=== PATIENT | male | born 1935 | race Asian ===

== ENCOUNTER 2019-03-02 15:56 | Inpatient (IN) | payer MEDICARE, OTHER ==
[2019-03-02] VITALS (21 sets, daily range): BP systolic 106–122; BP diastolic 68–81; PULSE 93–105; RESP 14–31; Ht 170.2 cm; Wt 78.2 kg
[~2019-03-02] VITALS: Ht 170.2 cm; Wt 78.2 kg
[2019-03-02] MEDS ORDERED: HEPARIN 1000 UNITS/ML 10 ML INJ IV STA (16:01)
[2019-03-02] MEDS ORDERED: NITROGLYCERIN 2% 1 GM OINT PKT TD STA (16:01)
[2019-03-02] MEDS ORDERED: morphine 4 MG/ML VIAL IV STA (16:01)
[2019-03-02] MEDS ORDERED: ONDANSETRON 4 MG INJ IV STA (16:01)
--- NOTE | 2019-03-02 16:05 | ERD ---
ER Documentation Chief Complaint Chief Complaint STEMI, chest pain HPI This 83-year-old male who was having chest pain yesterday that was waxing and waning. His chest pain became more constant today so went to his doctor's office and he had an EKG there and it showed acute myocardial infarction. He was transferred here by ambulance. He received 1 aspirin and 2 nitro sprays by EMS. His pain is currently a 4 out of 10. He has no prior cardiac history he says his chest pain is in the center of his chest is described as a pressure with some mild shortness of breath. No syncope or back pain or abdominal pain. ROS All systems reviewed and are negative except as per history of present illness. FmHx Family History: No coronary disease Physical Exam Physical Exam Const: Well-developed, well-nourished Head: Atraumatic, normocephalic Eyes: Normal Conjunctiva, PERRLA, EOMI, normal sclera, no nystagmus ENT: Normal External Ears, Nose and Mouth, moist mucus membranes. Neck: Full range of motion. No meningismus, no lymphadenopathy. Resp: Clear to auscultation bilaterally, no wheezing, rhonchi, rales Cardio: Regular rate and rhythm, no murmurs, S1 S2 present Abd: Soft, non tender x 4, non distended. Normal bowel sounds, no guarding or rebound, no pulsitile abdominal masses or bruits Skin: No petechiae or rashes, no ecchymosis , no maculopapular rash Back: No midline or flank tenderness Ext: No cyanosis, or edema, FROM x 4, normal inspection, neurovascularly intact x 4 Neur: Awake and alert, STR 5/5 x 4, sensation intact x 4, no focal findings, cerebellum intact Psych: Normal Mood and Affect Procedures/MDM EKG: Rate/Rhythm: ST elevation across the precordial lateral leads with reciprocal change QRS, ST, QT: NORMAL AR, QRS, QT] Impression: Acute STEMI Patient was given Zofran and morphine, heparin 5000 units IV. Spoke with Dr. Javier [facility] of cardiology, code STEMI was called and he will go to the [employer] [facility] soon Critical Care Time: 30 minutes Treatments/Evaluations: Close monitoring and treatment of unstable vital signs, cardiorespiratory, and neurologic status, while maintaining tight balance of fluid, respiratory, and cardiac interventions. This time includes discussing the case with the patient and the patient's family. This time does not include all procedures stated elsewhere in this record. This time also includes reviewing old records, labs and radiological studies. This time includes examining and re- examining the patient. Additionally, this time also includes arranging care with admitting and consulting physicians. Departure Diagnosis: Primary Impression: STEMI (ST elevation myocardial infarction) Involved coronary artery: LAD coronary artery Qualified Codes: I21.02 - ST elevation (STEMI) myocardial infarction involving left anterior descending coronary artery Condition: AICHA Agee DO March 02, 2019 16:05
[2019-03-02] MEDS ORDERED: NITROGLYCERIN (IC) 100 MCG/ML INJ ONE (16:22)
[2019-03-02] MEDS ORDERED: LIDOCAINE 1% (MDV) 20 ML INJ ONE (16:22)
[2019-03-02] MEDS ORDERED: HEPARIN 1000 UNITS/ML 10 ML INJ ONE (16:22)
[2019-03-02] MEDS ORDERED: VERAPAMIL 5 MG INJ ONE ×2 (16:22→16:44)
[2019-03-02] MEDS ORDERED: FENTAnyl 50 MCG/ML VIAL ONE (16:24)
[2019-03-02] MEDS ORDERED: MIDAZOLAM 1 MG/ML 2 ML INJ ONE (16:32)
[2019-03-02] MEDS ORDERED: TRAM50TA PO (16:37)
[2019-03-02] MEDS ORDERED: LEVO50TA7 PO (16:38)
[2019-03-02] MEDS ORDERED: FURO40TA4 PO (16:38)
[2019-03-02] MEDS ORDERED: DICL100G37 TOP (16:39)
[2019-03-02] MEDS ORDERED: CLOPIDOGREL 300 MG TAB ONE (16:42)
[2019-03-02] MEDS ORDERED: NORepinephrine 8MG/250 ML (PMX 250 ML ONE (17:10)
[2019-03-02] MEDS ORDERED: BIVALIRUDIN 250MG /NS 50 ML 50 ML IVPB ONE ×2 (17:28→17:39)
--- NOTE | 2019-03-02 18:16 | OPR ---
Date/Time of Note Date/Time of Note DATE: 03/02/19 TIME: 17:52 Operative Report Procedure Date: March 02, 2019 Preoperative Diagnosis anterior STEMI Postoperative Diagnosis same s/p PCI Operation/Procedure Performed see details Surgeon see signature line Behavioral Technician none Anesthesia Type: moderate sedation Estimated Blood Loss: minimal Transfusion none Specimen none Grafts/Implants none Complications none Procedure Description Procedure Date:03/02/2019 Instructor Of Sociology/surgeon: Palmira Chambers MD. Procedures Performed: 1)Left heart catheterization with selective left and right coronary angiography. 2)Balloon angioplasty and stenting of the prox-mid LAD with a [place] 2.5 x 15 stent. 3)Balloon angioplasty and stenting of the mid LAD into ostial diag with a [place]olute [place] 2.25 x 15 stent. Pre-operative Diagnosis:STEMI Post-operative Diagnosis:same s/p PCI Indications: 83 yo M with no known medical history who initially presented to his PMD with chest pain on and off for 3 days, worse today, and was found to have an anterior STEMI, He was transferred to [facility] for cath. Description of Procedure: After informed consent, the patient was brought to the cardiac catheterization lab. The procedure site was prepped and draped in usual manner. 2 mL lidocaine was injected into the right wrist. Next using the posterior wall technique, the 6/5 south korean sheath was inserted into the right radial artery. Next using the EBU 3.25 guide and JR4, selective angiography of the left and right coronary arteries were obtained. The decision was made to proceed with PCI of the LAD. . After appropriate anticoagulation and antiplatelets were given, the BMW angioplasty wire was advanced past the lesion. Next the 2.0 X 12 balloon was used to dilate the lesion times 2 at a maximum of 8 daquan. Angiography revealed a mid LAD lesion at the second diag. The lesion was also dilated. The original wire was noted to be in the diag and a second wire was attempted to cross into the LAD but due to vessel tortuosity, kept entering the diag. Despite multiple attempts and wires, it could not be redirected. There was also poor flow into the diag possibly from thrombus so integrilin was started. There was also spasm of the distal LAD which improved with NTG and verapamil. Based on the anatomy and angle of takeoff, the decision was made that stenting into the LAD probably would not alter flow into the LAD and if it did, the stent would alter the anatomy enough that access into the LAD would be possible. Subsequently, the Forest 2.25 x 15 stent was advanced to the mid LAD lesion and stented into the prox diag. Flow into the distal LAD was KANU 3 and the mid LAD was only 40% stenosed. Subsequently the prox-mid LAD which was the original culprit was stented with an [place] 2.5 x 15 stent and post dilated with a 2.75 x 8 NC balloon. Final angiography revealed KANU 3 flow, no edge dissection, and appropriate stent expansion. There was KANU 3 flow to the distal LAD and diagonal as well after the wire was removed,. The pigtail was then advanced into the ventricle and hemodynamics obtained. Left ventricle angiography was not obtained. Next all equipment was removed and hemostasis was achieved by TR band. Findings: Anatomy/Hemodynamics: Left main:normal LAD:prox-mid 100%. After flow established there was also a mid 99% at diag 2 Diagonal 1: ostial 80%, prox 70-80% which will be managed medically Diagonal 2: ostial 99% Circumflex:luminal irregularities Obtuse marginal:luminal irregularities RCA:luminal irregularities PDA:mid 40% PLV:luminal irregularities LV angiography:not done LV-Ao:no gradient LVEDP:28 mmHg Contrast used: 255 mL Fluoroscopy time:19.4 min Medications used: Radial cocktail: heparin 5000 units, NTG 200mcg, verapamil 2.5mg Angiomax Plavix 600mg Integrilin (stopped at end of case) NTG and verapamil IC Equipment used: 6 south korean EBU 3.25 guide BMW angioplasty wire 2 x 12 balloon [place] 2.25 x 15 drug eluting stent (mid LAD into ostial diag) [place] 2.5 x 15 drug eluting stent (prox-mid LAD) 2.75 x 8 noncompliant balloon Estimated blood loss<10 mL. Specimen: none Grafts/implants: none Complications: none Assessment: Anterior STEMI: s/p PCI of prox-mid culprit LAD and mid LAD into diag 2 CAD: as above. Residual ostial and prox diag 2 disease will be managed medically Ischemic cardiomyopathy Plan: -ASA 81mg lifelong -plavix 75mg dialy x 1 year -lipitor -coreg 3.125mng BID as tolerated -start ACEI/ARB if BP tolerates -f/u echo KOSHKARYAN,PALMIRA March 02, 2019 18:15
--- NOTE | 2019-03-02 18:16 | CONS ---
Assessment/Plan Assessment/Plan Hospital Course (Demo Recall) Anterior STEMI: s/p PCI of prox-mid culprit LAD and mid LAD into diag 2 CAD: as above. Residual ostial and prox diag 2 disease will be managed medically Ischemic cardiomyopathy -continue Angiomax 4 hours post PCI -ASA 81mg lifelong -plavix 75mg dialy x 1 year -lipitor -coreg 3.125mng BID as tolerated -start ACEI/ARB if BP tolerates -f/u echo Consultation Date/Type/Reason Admit Date/Time Date of Consultation: March 02, 2019 Type of Consult Cardiology Reason for Consultation Anterior STEMI Requesting Provider: AICHA SARMIENTO DO Date/Time of Note DATE: 03/02/19 TIME: 18:16 Hx of Present Illness 83 yo M with no known medical history who initially presented to his PMD with chest pain on and off for 3 days, worse today, and was found to have an anterior STEMI, He was transferred to [facility] for cath. On arrival he had ongoing chest pain and was emergently taken to the clinical laboratory technologist per HPI Past Medical History none known Home Meds Reported Medications Diclofenac Sodium* (Voltaren* Gel) 1% -100 Gm Gel, 2 GM TOP NEEDED, #1 TUB 03/02/19 Furosemide* (Furosemide*) 40 Mg Tablet, 40 MG PO DAILY, TAB 03/02/19 Levothyroxine Sodium* (Levothyroxine Sodium*) 50 Mcg Tablet, 50 MCG PO BEFORE BREAKFAST, #30 TAB 03/02/19 Tramadol Hcl* (Ultram*) 50 Mg Tablet, 50 MG PO DAILY PRN for NEEDED, TAB 03/02/19 Allergies: Coded Allergies: No Known Allergy (Unverified , 03/02/19) Social History Smoking Status: Never smoker Exam/Review of Systems Vital Signs Vitals Vital Signs Date Temp Pulse Resp B/P (MAP) Pulse Ox O2 O2 Flow FiO2 Time Delivery Rate 03/02/19 Nasal 2 15:56 Cannula 03/02/19 98.3 102 24 129/91 99 15:56 (104) Exam Constitutional: alert, oriented Head: normocephalic, atraumatic Neck: jvd (8cm) Respiratory: crackles/rales (mild); No clear to auscultation Cardiovascular: regular rate and rhythm, edema (1+), systolic murmur (2/6 DUNCAN) Gastrointestinal: soft, non-tender; No distended Neurological: nl mental status, nl speech Additional Comments EKG: sinus, YURI V2-V4 Labs Result Diagram: 03/02/19 1605 03/02/19 1605 Results 24hrs Laboratory Tests Test 03/02/19 16:05 White Blood Count 9.5 Red Blood Count 4.80 Hemoglobin 13.6 L Hematocrit 40.4 L Mean Corpuscular Volume 84.2 Mean Corpuscular Hemoglobin 28.3 L Mean Corpuscular Hemoglobin Concent 33.7 Red Cell Distribution Width 14.0 Platelet Count 203 Mean Platelet Volume 10.6 H Immature Granulocytes % 0.400 Neutrophils % 73.6 Lymphocytes % 16.2 Monocytes % 9.2 Eosinophils % 0.4 Basophils % 0.2 Nucleated Red Blood Cells % 0.0 Immature Granulocytes # 0.040 H Neutrophils # 7.0 Lymphocytes # 1.6 Monocytes # 0.9 Eosinophils # 0.0 Basophils # 0.0 Nucleated Red Blood Cells # 0.0 Sodium Level 139 Potassium Level 4.5 Chloride Level 102 Carbon Dioxide Level 29 Anion Gap 8 Blood Urea Nitrogen 18 Creatinine 1.06 Est Glomerular Filtrat Rate mL/min Glucose Level 113 Calcium Level 10.5 H Troponin I 9.020 *H PALMIRA MISHRA March 02, 2019 18:16
[2019-03-02] MEDS: ATORVASTATIN 40 MG TAB PO SCH (21:16)
[2019-03-03] VITALS (37 sets, daily range): BP systolic 94–114; BP diastolic 54–78; PULSE 95–115; RESP 13–41
[2019-03-03] MEDS: ASPIRIN 81 MG TAB PO SCH (08:54)
[2019-03-03] MEDS: CLOPIDOGREL 75 MG TAB PO SCH (08:54)
--- NOTE | 2019-03-03 09:23 | CONS ---
Consult Date/Type/Reason Admit Date/Time March 02, 2019 at 18:38 Initial Consult Date 03/02/19 Reason for Consultation f/u post stemi Requesting Provider: AICHA SARMIENTO DO Date/Time of Note DATE: 03/03/19 TIME: 09:20 Subjective CARDS Assessment/Plan Assessment/Plan Hospital Course (Demo Recall) Anterior STEMI: s/p PCI of prox-mid culprit LAD and mid LAD into diag 2 CAD: as above. Residual ostial and prox diag 2 disease will be managed medically Ischemic cardiomyopathy -continue Angiomax 4 hours post PCI -ASA 81mg lifelong -plavix 75mg dialy x 1 year -lipitor -coreg 3.125mng BID as tolerated -start ACEI/ARB if BP tolerates -f/u echo NO CP OR SOB Objective Vitals Vital Signs Date Temp Pulse Resp B/P (MAP) Pulse Ox O2 O2 Flow FiO2 Time Delivery Rate 03/03/19 95 27 94/72 (79) 100 Room Air 09:00 03/03/19 98.9 08:00 03/02/19 2 15:56 Intake and Output 03/02/19 03/02/19 03/03/19 1515:00 23:00 07:00 IntakeIntake Total 0 ml 0 ml OutputOutput Total 425 ml 150 ml BalanceBalance -425 ml -150 ml Exam Constitutional: alert, oriented Head: normocephalic, atraumatic Neck: jvd (8cm) Respiratory: crackles/rales (mild); No clear to auscultation Cardiovascular: regular rate and rhythm, edema (1+), systolic murmur (2/6 DUNCAN) Gastrointestinal: soft, non-tender; No distended Neurological: nl mental status, nl speech RADIAL ARTERY SITE OK Results/Medications Result Diagram: 03/03/19 0801 03/03/19 0801 Results 24 hrs Laboratory Tests Test 03/02/19 16:05 03/03/19 08:01 White Blood Count 9.5 9.2 Red Blood Count 4.80 4.29 L Hemoglobin 13.6 L 12.2 L Hematocrit 40.4 L 36.1 L Mean Corpuscular Volume 84.2 84.1 Mean Corpuscular Hemoglobin 28.3 L 28.4 L Mean Corpuscular Hemoglobin Concent 33.7 33.8 Red Cell Distribution Width 14.0 14.2 Platelet Count 203 176 Mean Platelet Volume 10.6 H 10.8 H Immature Granulocytes % 0.400 0.400 Neutrophils % 73.6 72.2 Lymphocytes % 16.2 15.2 Monocytes % 9.2 11.8 H Eosinophils % 0.4 0.1 Basophils % 0.2 0.3 Nucleated Red Blood Cells % 0.0 0.0 Immature Granulocytes # 0.040 H 0.040 H Neutrophils # 7.0 6.6 Lymphocytes # 1.6 1.4 Monocytes # 0.9 1.1 H Eosinophils # 0.0 0.0 Basophils # 0.0 0.0 Nucleated Red Blood Cells # 0.0 0.0 Sodium Level 139 138 Potassium Level 4.5 4.3 Chloride Level 102 106 Carbon Dioxide Level 29 28 Anion Gap 8 4 L Blood Urea Nitrogen 18 19 Creatinine 1.06 1.01 Est Glomerular Filtrat Rate mL/min Glucose Level 113 100 Calcium Level 10.5 H 9.5 Troponin I 9.020 *H Phosphorus Level 3.1 Magnesium Level 1.9 Home Meds Reported Medications Diclofenac Sodium* (Voltaren* Gel) 1% -100 Gm Gel, 2 GM TOP NEEDED, #1 TUB 03/02/19 Furosemide* (Furosemide*) 40 Mg Tablet, 40 MG PO DAILY, TAB 03/02/19 Levothyroxine Sodium* (Levothyroxine Sodium*) 50 Mcg Tablet, 50 MCG PO BEFORE BREAKFAST, #30 TAB 03/02/19 Tramadol Hcl* (Ultram*) 50 Mg Tablet, 50 MG PO DAILY PRN for NEEDED, TAB 03/02/19 Medications Current Medications Clopidogrel Bisulfate (plaVIX) 75 mg DAILY PO Last administered on 03/03/19at 08:54; Admin Dose 75 MG; Start 03/03/19 at 09:00 Aspirin (Aspirin) 81 mg DAILY PO Last administered on 03/03/19at 08:54; Admin Dose 81 MG; Start 03/03/19 at 09:00 Atorvastatin Calcium (Lipitor) 40 mg HS PO Last administered on 03/02/19at 21:16; Admin Dose 40 MG; Start 03/02/19 at 21:00 Carvedilol (Coreg) 3.125 mg BID PO Last administered on 03/02/19at 21:16; Admin Dose 3.125 MG; Start 03/02/19 at 21:00 Assessment/Plan Assessment/Plan (Daily) Assessment/Plan Assessment/Plan Hospital Course (Demo Recall) Anterior STEMI: s/p PCI of prox-mid culprit LAD and mid LAD into diag 2 CAD: as above. Residual ostial and prox diag 2 disease will be managed medically Ischemic cardiomyopathy -continue Angiomax 4 hours post PCI -ASA 81mg lifelong -plavix 75mg dialy x 1 year -lipitor -coreg 3.125mng BID as tolerated -start ACEI/ARB if BP tolerates -f/u echo DOING WELL OK TO TELE AMBULATE CHECK LIPIDS PHIL CHAMBERLAIN MD March 03, 2019 09:23
[2019-03-03] MEDS: traMADol 50 MG TAB PO SCH ×3 (13:58→21:00)
[2019-03-03] MEDS: ATORVASTATIN 40 MG TAB PO SCH (20:14)
[2019-03-04] VITALS (19 sets, daily range): BP systolic 96–123; BP diastolic 57–89; PULSE 96–113; RESP 17–28
--- NOTE | 2019-03-04 07:33 | HP ---
Date/Time of Note Date/Time of Note DATE: 03/04/19 TIME: 07:30 Assessment/Plan VTE Prophylaxis Risk score (from Nsg)>0 risk: 8 SCD applied (from Nsg): Yes Pharmacological prophylaxis: other Lines/Catheters IV Catheter Type (from Nrsg): Saline Lock Urinary Cath still in place: No Assessment/Plan Hospital Course Reason for admission Anterior STEMI Hx of Present Illness 83 yo M with no known medical history who initially presented to his PMD with chest pain on and off for few days was found to have an anterior STEMI, He was transferred to [facility] for cath. On arrival he had ongoing chest pain and was emergently taken to the shift lab technician he underwent PCI of prox-mid culprit LAD and mid LAD into diag 2 post op he has been in ICU with no significant events d/w icu nurse Past Medical History none known Home Meds Reported Medications Diclofenac Sodium* (Voltaren* Gel) 1% -100 Gm Gel, 2 GM TOP NEEDED, #1 TUB 03/02/19 Furosemide* (Furosemide*) 40 Mg Tablet, 40 MG PO DAILY, TAB 03/02/19 Levothyroxine Sodium* (Levothyroxine Sodium*) 50 Mcg Tablet, 50 MCG PO BEFORE BREAKFAST, #30 TAB 03/02/19 Tramadol Hcl* (Ultram*) 50 Mg Tablet, 50 MG PO DAILY PRN for NEEDED, TAB 03/02/19 Allergies: Coded Allergies: No Known Allergy (Unverified , 03/02/19) Social History Smoking Status: Never smoker family history: no cardiac diseases ROS: no fever, chills, nausea, vomiting or chest pain no hematuria, melena, rash or SOB Exam Constitutional: alert, oriented Head: normocephalic, atraumatic Neck: jvd (8cm) Respiratory: crackles/rales (mild); No clear to auscultation Cardiovascular: regular rate and rhythm, edema (1+), systolic murmur (2/6 DUNCAN) Gastrointestinal: soft, non-tender; No distended Neurological: nl mental status, nl speech Additional Comments EKG: sinus, YURI V2-V4 imp/plan: Hospital Course (Demo Recall) Anterior STEMI: s/p PCI of prox-mid culprit LAD and mid LAD into diag 2 CAD: as above. Residual ostial and prox diag 2 disease will be managed medically Ischemic cardiomyopathy -continue Angiomax 4 hours post PCI -ASA 81mg lifelong -plavix 75mg dialy x 1 year -lipitor -coreg 3.125mng BID as tolerated -start ACEI/ARB if BP tolerates -f/u echo will transfer to TELE Result Diagram: 03/04/19 0442 03/04/19 0442 Results 24hrs Laboratory Tests Test 03/03/19 08:01 03/04/19 04:42 White Blood Count 9.2 9.8 Red Blood Count 4.29 L 3.98 L Hemoglobin 12.2 L 11.2 L Hematocrit 36.1 L 33.2 L Mean Corpuscular Volume 84.1 83.4 Mean Corpuscular Hemoglobin 28.4 L 28.1 L Mean Corpuscular Hemoglobin Concent 33.8 33.7 Red Cell Distribution Width 14.2 14.5 Platelet Count 176 166 Mean Platelet Volume 10.8 H 11.2 H Immature Granulocytes % 0.400 0.300 Neutrophils % 72.2 73.9 Lymphocytes % 15.2 12.0 L Monocytes % 11.8 H 12.4 H Eosinophils % 0.1 1.1 Basophils % 0.3 0.3 Nucleated Red Blood Cells % 0.0 0.0 Immature Granulocytes # 0.040 H 0.030 Neutrophils # 6.6 7.2 Lymphocytes # 1.4 1.2 Monocytes # 1.1 H 1.2 H Eosinophils # 0.0 0.1 Basophils # 0.0 0.0 Nucleated Red Blood Cells # 0.0 0.0 Sodium Level 138 136 Potassium Level 4.3 4.1 Chloride Level 106 105 Carbon Dioxide Level 28 28 Anion Gap 4 L 3 L Blood Urea Nitrogen 19 28 H Creatinine 1.01 1.24 Est Glomerular Filtrat Rate mL/min Glucose Level 100 120 Calcium Level 9.5 9.4 Phosphorus Level 3.1 Magnesium Level 1.9 Triglycerides Level 75 Cholesterol Level 122 LDL Cholesterol, Calculated 67 HDL Cholesterol 40 Cholesterol/HDL Ratio 3.0 HPI/ROS Admit Date/Time Admit Date/Time March 02, 2019 at 18:38 PMH/Family/Social Past Medical History Medications Current Medications Clopidogrel Bisulfate (plaVIX) 75 mg DAILY PO Last administered on 03/03/19at 08:54; Admin Dose 75 MG; Start 03/03/19 at 09:00 Aspirin (Aspirin) 81 mg DAILY PO Last administered on 03/03/19at 08:54; Admin Dose 81 MG; Start 03/03/19 at 09:00 Atorvastatin Calcium (Lipitor) 40 mg HS PO Last administered on 03/03/19at 20:14; Admin Dose 40 MG; Start 03/02/19 at 21:00 Carvedilol (Coreg) 3.125 mg BID PO Last administered on 03/02/19at 21:16; Admin Dose 3.125 MG; Start 03/02/19 at 21:00 Tramadol HCl (Ultram) 50 mg TID PO Last administered on 03/03/19at 20:15; Admin Dose 50 MG; Start 03/03/19 at 14:00 Coded Allergies: No Known Allergy (Unverified , 03/02/19) Social History Smoking Status: Never smoker Exam/Review of Systems Vital Signs Vitals Vital Signs Date Temp Pulse Resp B/P (MAP) Pulse Ox O2 O2 Flow FiO2 Time Delivery Rate 03/04/19 101 19 111/65 96 Room Air 06:00 (80) 03/04/19 98.5 04:00 03/02/19 2 15:56 Intake and Output 03/03/19 03/03/19 03/04/19 1515:00 23:00 07:00 IntakeIntake Total 960 ml 220 ml 100 ml OutputOutput Total 150 ml 140 ml 150 ml BalanceBalance 810 ml 80 ml -50 ml MYAH ROMERO DO March 04, 2019 07:33
[2019-03-04] MEDS: ASPIRIN 81 MG TAB PO SCH (08:25)
[2019-03-04] MEDS: traMADol 50 MG TAB PO SCH ×3 (08:26→21:16)
[2019-03-04] MEDS: CLOPIDOGREL 75 MG TAB PO SCH (08:26)
--- NOTE | 2019-03-04 12:08 | CONS ---
Assessment/Plan Assessment/Plan Assessment/Plan (Daily) CARDS Assessment/Plan Assessment/Plan Hospital Course (Demo Recall) Anterior STEMI: s/p PCI of prox-mid culprit LAD and mid LAD into diag 2 CAD: as above. Residual ostial and prox diag 2 disease will be managed medically Ischemic cardiomyopathy -continue Angiomax 4 hours post PCI -ASA 81mg lifelong -plavix 75mg dialy x 1 year -lipitor -coreg 3.125mng BID as tolerated -start ACEI/ARB if BP tolerates -f/u echo NO CP OR SOB OK POST STEMI DOING WELL SYMPTOM FREE TO TELE AMBULATE Consultation Date/Type/Reason Admit Date/Time March 02, 2019 at 18:38 Initial Consult Date 03/02/19 Type of Consult Cardiology Requesting Provider: AICHA SARMIENTO DO Date/Time of Note DATE: 03/04/19 TIME: 12:04 24 HR Interval Summary Free Text/Dictation IM Assessment/Plan VTE Prophylaxis Risk score (from Nsg)>0 risk: 8 SCD applied (from Nsg): Yes Pharmacological prophylaxis: other Lines/Catheters IV Catheter Type (from Nrsg): Saline Lock Urinary Cath still in place: No Assessment/Plan Hospital Course Reason for admission Anterior STEMI Hx of Present Illness 83 yo M with no known medical history who initially presented to his PMD with chest pain on and off for few days was found to have an anterior STEMI, He was transferred to [facility] for cath. On arrival he had ongoing chest pain and was emergently taken to the refuse laborer he underwent PCI of prox-mid culprit LAD and mid LAD into diag 2 post op he has been in ICU with no significant events d/w icu nurse Exam/Review of Systems Vital Signs Vitals Vital Signs Date Temp Pulse Resp B/P (MAP) Pulse Ox O2 O2 Flow FiO2 Time Delivery Rate 03/04/19 105 26 116/73 98 Room Air 09:00 (87) 03/04/19 97.9 08:00 03/02/19 2 15:56 Intake and Output 03/03/19 03/03/19 03/04/19 1515:00 23:00 07:00 IntakeIntake Total 960 ml 220 ml 100 ml OutputOutput Total 150 ml 140 ml 150 ml BalanceBalance 810 ml 80 ml -50 ml Exam Exam Exam Constitutional: alert, oriented Head: normocephalic, atraumatic Neck: jvd (8cm) Respiratory: crackles/rales (mild); No clear to auscultation Cardiovascular: regular rate and rhythm, edema (1+), systolic murmur (2/6 DUNCAN) Gastrointestinal: soft, non-tender; No distended Neurological: nl mental status, nl speech RADIAL ARTERY SITE OK Labs Result Diagram: 03/04/19 0442 03/04/19 0442 Results 24hrs Laboratory Tests Test 03/04/19 04:42 White Blood Count 9.8 Red Blood Count 3.98 L Hemoglobin 11.2 L Hematocrit 33.2 L Mean Corpuscular Volume 83.4 Mean Corpuscular Hemoglobin 28.1 L Mean Corpuscular Hemoglobin Concent 33.7 Red Cell Distribution Width 14.5 Platelet Count 166 Mean Platelet Volume 11.2 H Immature Granulocytes % 0.300 Neutrophils % 73.9 Lymphocytes % 12.0 L Monocytes % 12.4 H Eosinophils % 1.1 Basophils % 0.3 Nucleated Red Blood Cells % 0.0 Immature Granulocytes # 0.030 Neutrophils # 7.2 Lymphocytes # 1.2 Monocytes # 1.2 H Eosinophils # 0.1 Basophils # 0.0 Nucleated Red Blood Cells # 0.0 Sodium Level 136 Potassium Level 4.1 Chloride Level 105 Carbon Dioxide Level 28 Anion Gap 3 L Blood Urea Nitrogen 28 H Creatinine 1.24 Est Glomerular Filtrat Rate mL/min Glucose Level 120 Calcium Level 9.4 Medications Medications Current Medications Clopidogrel Bisulfate (plaVIX) 75 mg DAILY PO Last administered on 03/04/19 08:26; Admin Dose 75 MG; Start 03/03/19 at 09:00 Aspirin (Aspirin) 81 mg DAILY PO Last administered on 03/04/19 08:25; Admin Dose 81 MG; Start 03/03/19 at 09:00 Atorvastatin Calcium (Lipitor) 40 mg HS PO Last administered on 03/03/19 20:14; Admin Dose 40 MG; Start 03/02/19 at 21:00 Carvedilol (Coreg) 3.125 mg BID PO Last administered on 03/04/19 08:25; Admin Dose 3.125 MG; Start 03/02/19 at 21:00 Tramadol HCl (Ultram) 50 mg TID PO Last administered on 03/04/19 08:26; Admin Dose 50 MG; Start 03/03/19 at 14:00 PHIL CHAMBERLAIN MD March 04, 2019 12:08
[2019-03-04] MEDS: ATORVASTATIN 40 MG TAB PO SCH (21:16)
[2019-03-05] VITALS (12 sets, daily range): BP systolic 90–106; BP diastolic 50–60; PULSE 86–100; RESP 17–19
[2019-03-05] MEDS: CLOPIDOGREL 75 MG TAB PO SCH (08:17)
[2019-03-05] MEDS: ASPIRIN 81 MG TAB PO SCH (08:17)
[2019-03-05] MEDS: traMADol 50 MG TAB PO SCH ×3 (08:18→20:09)
--- NOTE | 2019-03-05 08:47 | PN ---
DATE: 03/05/2019 SUBJECTIVE: The patient is stable. No events overnight. The patient this morning is requesting phy sical therapy and denied any chest pain. OBJECTIVE: VITAL SIGNS: Blood pressure is 100/60, respirations 17, pulse 90, temperature 98.6. HEENT: Head is normocephalic. NECK: Supple. HEART: Regular rate. LUNGS: Show diminished breath sounds at the base. ABDOMEN: Soft. Nontender to palpation. No rebound or guarding. EXTREMITIES: Negative for clubbing, cyanosis, no edema. DERMATOLOGIC: No rashes. MUSCULOSKELETAL: No joint effusion. NEUROLOGIC: No change in exam. MEDICATIONS: Reviewed. LABORATORY DATA: Reviewed. ASSESSMENT AND PLAN: 1. Coronary artery disease. The patient is status post PCI to the LAD and mid LAD. The patient is currently stable. Continue medical management. Continue aspirin, continue Plavix, continue Lipitor, and Coreg. We will follow up with cardiology recommendations. 2. Anemia. Continue to monitor hemoglobin and hematocrit levels. 3. Hypertension. Continue current blood pressure regimen. 4. Dyslipidemia. Continue statin therapy. 5. Hypothyroidism. Continue Synthroid. 6. General debility. Place a physical therapy consult for evaluation. 7. Gastrointestinal and deep vein thrombosis prophylaxis. 8. History of ischemic cardiomyopathy. Continue medical management. Dictated By: STEPHEN MANRIQUE DO NR/NTS Conf#: [id number] DID#: [id number] CC: PALMIRA MISHRA MD;*EndCC*
--- NOTE | 2019-03-05 08:52 | RADRPT ---
Echocardiogram Report Patient Name: SHIVA KATEDPatient ID: [id number] : 1935 (83y 4m)Study Date: 03/03/2019 9:09:19 AM Gender: MAccession #: [id number] Tech: Ish Alvarado [facility] Location: [facility] Ref.Physician: PALMIRA CHAMBERS Height(Cm): BSA: Weight(Kg): Quality: AdequateAccount #: Procedures: Echocardiographic Report: Transthoracic echocardiogram with complete 2D, M-Mode, and doppler examination. Indications: STEMI. Measurements: 2D/M Mode Doppler Measurement Value Normal Range Measurement Value Normal Range LVIDd 2D 4.3 [ 4.2 - 5.8 ] cm AV Peak West 1.1 [ 100.0 - 170.0 ] cm/sec LVIDs 2D 3.5 [ 2.5 - 4.0 ] cm AV Peak PG 5.0 [ 2.0 - 9.0 ] mmHg LVPWd 2D 0.9 [ 0.6 - 1.0 ] cm LVOT Peak West 1.0 [ 70.0 - 110.0 ] cm/sec IVSd 2D 1.6 [ 0.6 - 1.0 ] cm LVOT Peak PG 4.0 [ 2.0 - 6.0 ] mmHg AoR Diam 2D 2.6 [ 2.6 - 3.4 ] cm MV E Peak West 0.8 [ 60.0 - 130.0 ] cm/sec EDV 2D 81.3 [ 62.0 - 150.0 ] ml MV A Peak West 0.9 [ 100.0 - 120.0 ] cm/sec ESV 2D 49.8 [ 21.0 - 61.0 ] ml MV E/A 0.9 [ 0.8 - 1.5 ] ratio EF 2D 38.7 [ 52.0 - 72.0 ] percent MV Decel Time 162 [ 104 - 258 ] msec LA Dimen 2D 3.4 [ 3.0 - 4.0 ] cm Lat E` West 0.1 [ 10.0 - 15.0 ] cm/sec Lateral E/E` 12.4 [ 1.0 - 2.0 ] ratio MV E/A 0.9 [ 0.8 - 1.5 ] ratio TR Peak West 2.4 [ 100.0 - 280.0 ] cm/sec TR Peak PG 23.0 mmHg RVSP 26.0 [ 10.0 - 36.0 ] mmHg Findings: Left Ventricle: Normal left ventricular cavity size. Mild hypertrophy of the basal septum. Moderate left ventricular systolic dysfunction. Ejection fraction is visually estimated at 30-35 %. Tissue Doppler/Mitral Doppler indices are consistent with impaired relaxation (Stage I diastolic dysfunction). Hypokinesis of the mid to distal anterior wall and septum. Akinesis of the entire apex. There appears to be heavy trabeculation at the apex rather than a thrombus. Right Ventricle: Normal right ventricular size. Normal right ventricular systolic function. Left Atrium: There is mild enlargement of left atrium. Right Atrium: There is mild enlargement of right atrium. Mitral Valve: Mild mitral annular calcification. Mild to moderate mitral valve regurgitation. Aortic Valve: Aortic sclerosis without significant stenosis. Mild aortic valve regurgitation. Tricuspid Valve: Normal appearance of the tricuspid valve. Estimated peak PA systolic pressure 26 mmHg. There is mild to moderate tricuspid regurgitation. Pulmonic Valve: Normal pulmonic valve appearance. Pericardium: Normal pericardium with no significant pericardial effusion. Aorta: Normal aortic root. IVC: Normal size and normal respiratory collapse consistent with normal right atrial pressure. Conclusions: Normal left ventricular cavity size. Mild hypertrophy of the basal septum. Moderate left ventricular systolic dysfunction. Ejection fraction is visually estimated at 30-35 %. Tissue Doppler/Mitral Doppler indices are consistent with impaired relaxation (Stage I diastolic dysfunction). Hypokinesis of the mid to distal anterior wall and septum. Akinesis of the entire apex. There appears to be heavy trabeculation at the apex rather than a thrombus. Aortic sclerosis without significant stenosis. Mild aortic valve regurgitation. Mild to moderate mitral valve regurgitation. There is mild to moderate tricuspid regurgitation. Estimated peak PA systolic pressure 26 mmHg. Normal size and normal respiratory collapse consistent with normal right atrial pressure. Electronically Signed By: Palmira Chambers 2019-03-05 08:51:38 PDT
--- NOTE | 2019-03-05 10:21 | CONS ---
Assessment/Plan Assessment/Plan Hospital Course (Demo Recall) Anterior STEMI: s/p PCI of prox-mid culprit LAD and mid LAD into diag 2. Doing very well CAD: as above. Residual ostial and prox diag 2 disease will be managed medically Ischemic cardiomyopathy: EF 30-35%. Euvolemic -ASA 81mg lifelong -plavix 75mg dialy x 1 year -lipitor -coreg 3.125mng BID as tolerated -start ACEI/ARB if BP tolerates Consultation Date/Type/Reason Admit Date/Time March 02, 2019 at 18:38 Initial Consult Date 03/02/19 Type of Consult Cardiology Requesting Provider: AICHA SARMIENTO DO Date/Time of Note DATE: 03/05/19 TIME: 10:19 24 HR Interval Summary Free Text/Dictation No issues over the weekend. No chest pain. Only has knee pain and needs PT Exam/Review of Systems Vital Signs Vitals Vital Signs Date Temp Pulse Resp B/P (MAP) Pulse Ox O2 O2 Flow FiO2 Time Delivery Rate 03/05/19 91 08:01 03/05/19 98.6 17 100/60 96 07:24 (73) 03/04/19 Room Air 14:00 03/02/19 2 15:56 Intake and Output 03/04/19 03/04/19 03/05/19 1515:00 23:00 07:00 IntakeIntake Total 840 ml 300 ml OutputOutput Total 250 ml 500 ml BalanceBalance 590 ml -200 ml Exam Constitutional: alert, oriented Psych: no complaints, nl mood/affect Neck: supple; No jvd Respiratory: clear to auscultation; No crackles/rales Cardiovascular: regular rate and rhythm, systolic murmur (2/6 DUNCAN); No edema Gastrointestinal: soft, non-tender; No distended Neurological: nl mental status, nl speech Labs Result Diagram: 03/04/1944103/04/19441 Results 24hrs Laboratory Tests Test 03/05/19 08:00 Bedside Glucose 104 Medications Medications Current Medications Clopidogrel Bisulfate (plaVIX) 75 mg DAILY PO Last administered on 03/05/19at 08:17; Admin Dose 75 MG; Start 03/03/19 at 09:00 Aspirin (Aspirin) 81 mg DAILY PO Last administered on 03/05/19at 08:17; Admin Dose 81 MG; Start 03/03/19 at 09:00 Atorvastatin Calcium (Lipitor) 40 mg HS PO Last administered on 03/04/19 21:16; Admin Dose 40 MG; Start 03/02/19 at 21:00 Carvedilol (Coreg) 3.125 mg BID PO Last administered on 03/04/19at 21:20; Admin Dose 3.125 MG; Start 03/02/19 at 21:00 Tramadol HCl (Ultram) 50 mg TID PO Last administered on 03/05/19at 08:18; Admin Dose 50 MG; Start 03/03/19 at 14:00 Levothyroxine Sodium (Synthroid) 50 mcg BEFORE BREAKFAST PO ; Start 03/06/19 at 07:00 PALMIRA MISHRA March 05, 2019 10:21
[2019-03-05] MEDS: ATORVASTATIN 40 MG TAB PO SCH (20:09)
[2019-03-06] VITALS (12 sets, daily range): BP systolic 94–115; BP diastolic 58–70; PULSE 71–104; RESP 18
[2019-03-06] MEDS: LEVOTHYROXINE 50 MCG TAB PO SCH (06:09)
[2019-03-06] MEDS: LACTULOSE 30ML CUP PO PRN (07:09)
[2019-03-06] MEDS: ASPIRIN 81 MG TAB PO SCH (08:14)
[2019-03-06] MEDS: CLOPIDOGREL 75 MG TAB PO SCH (08:14)
[2019-03-06] MEDS: traMADol 50 MG TAB PO SCH ×3 (08:15→20:07)
--- NOTE | 2019-03-06 09:39 | PN ---
DATE: 03/06/2019 SUBJECTIVE: The patient is stable. No events overnight. The patient is working with physical [place] and still requires help with transfers. The patient agrees to acute rehab in the hospital if the patient is accepted. No other events noted. OBJECTIVE: VITAL SIGNS: Blood pressure is 97/59, pulse 90, temperature 98.1. HEENT: Head is normocephalic. NECK: Supple. HEART: Regular rate. LUNGS: Show diminished breath sounds at the base. ABDOMEN: Soft, nontender to palpation without rebound or guarding. EXTREMITIES: Negative for clubbing, cyanosis, no edema. DERMATOLOGIC: No rashes. MUSCULOSKELETAL: No joint effusion. NEUROLOGIC: No change in exam. MEDICATIONS: Reviewed. LABORATORY DATA: From 03/06/2019 has been reviewed. ASSESSMENT AND PLAN: 1. Coronary artery disease. The patient is status post percutaneous coronary intervention to left a nterior descending. Currently stable. Continue medical management. Continue aspirin, Plavix, Lipit or, and Coreg. 2. Anemia, mild. Monitor hemoglobin and hematocrit levels. 3. Hypertension. The patient currently is hypotensive. Monitor closely. Continue blood pressure r egimen. 4. Dyslipidemia. Continue statin therapy. 5. General debility. Continue physical therapy. 6. History of ischemic cardiomyopathy. 7. Gastrointestinal and deep vein thrombosis prophylaxis. 8. Hypothyroidism. Continue Synthroid. DISPOSITION: Acute rehab evaluation has been placed. Dictated By: STEPHEN MANRIQUE DO NR/NTS Conf#: [id number] DID#: [id number] CC: PALMIRA MISHRA MD;*End*
[2019-03-06] MEDS ORDERED: EPTIFIBATIDE 20 MG INJ ONE (12:00)
[2019-03-06] MEDS ORDERED: EPTIFIBATIDE 200 MG INJ IV ONE (12:00)
--- NOTE | 2019-03-06 13:37 | CONS ---
Assessment/Plan Assessment/Plan Hospital Course (Demo Recall) Acute systolic CHF: decompensated on exam Anterior STEMI: s/p PCI of prox-mid culprit LAD and mid LAD into diag 2. Doing very well CAD: as above. Residual ostial and prox diag 2 disease will be managed medically Ischemic cardiomyopathy: EF 30-35%. -lasix 20mg IV x 2 doses today -CXR -ASA 81mg lifelong -plavix 75mg dialy x 1 year -lipitor -coreg 3.125mng BID as tolerated -ACEI/ARB if BP tolerates Consultation Date/Type/Reason Admit Date/Time March 02, 2019 at 18:38 Initial Consult Date 03/02/19 Type of Consult Cardiology Requesting Provider: AICHA SARMIENTO DO Date/Time of Note DATE: 03/06/19 TIME: 13:35 24 HR Interval Summary Free Text/Dictation Still with knee pain. Mild SOB with ambulation. No chest pain Exam/Review of Systems Vital Signs Vitals Vital Signs Date Temp Pulse Resp B/P (MAP) Pulse Ox O2 O2 Flow FiO2 Time Delivery Rate 03/06/19 91 12:01 03/06/19 98.5 18 94/60 (71) 99 11:29 03/04/19 Room Air 14:00 03/02/19 2 15:56 Intake and Output 03/05/19 03/05/19 03/06/19 1515:00 23:00 07:00 IntakeIntake Total 900 ml 300 ml OutputOutput Total 1025 ml 300 ml BalanceBalance -125 ml 0 ml Exam Constitutional: alert, oriented Psych: no complaints, nl mood/affect Neck: jvd (9-10cm) Respiratory: crackles/rales (to 1/3 lungs); No clear to auscultation Cardiovascular: regular rate and rhythm, edema (1+) Neurological: nl mental status, nl speech Labs Result Diagram: 03/06/1952503/06/19525 Results 24hrs Laboratory Tests Test 03/06/19 05:26 White Blood Count 8.6 Red Blood Count 3.78 L Hemoglobin 10.8 L Hematocrit 32.0 L Mean Corpuscular Volume 84.7 Mean Corpuscular Hemoglobin 28.6 L Mean Corpuscular Hemoglobin Concent 33.8 Red Cell Distribution Width 14.4 Platelet Count 174 Mean Platelet Volume 11.0 H Immature Granulocytes % 0.500 H Neutrophils % 73.3 Lymphocytes % 10.5 L Monocytes % 11.1 H Eosinophils % 4.5 Basophils % 0.1 Nucleated Red Blood Cells % 0.0 Immature Granulocytes # 0.040 H Neutrophils # 6.3 Lymphocytes # 0.9 Monocytes # 1.0 H Eosinophils # 0.4 Basophils # 0.0 Nucleated Red Blood Cells # 0.0 Sodium Level 136 Potassium Level 4.3 Chloride Level 104 Carbon Dioxide Level 28 Anion Gap 4 L Blood Urea Nitrogen 28 H Creatinine 1.10 Est Glomerular Filtrat Rate mL/min Glucose Level 102 Calcium Level 9.3 Phosphorus Level 3.4 Magnesium Level 2.3 Medications Medications Current Medications Clopidogrel Bisulfate (plaVIX) 75 mg DAILY PO Last administered on 03/06/19 08:14; Admin Dose 75 MG; Start 03/03/19 at 09:00 Aspirin (Aspirin) 81 mg DAILY PO Last administered on 03/06/19 08:14; Admin Dose 81 MG; Start 03/03/19 at 09:00 Atorvastatin Calcium (Lipitor) 40 mg HS PO Last administered on 03/05/19 20:09; Admin Dose 40 MG; Start 03/02/19 at 21:00 Carvedilol (Coreg) 3.125 mg BID PO Last administered on 03/04/19 21:20; Admin Dose 3.125 MG; Start 03/02/19 at 21:00 Tramadol HCl (Ultram) 50 mg TID PO Last administered on 03/06/19 12:22; Admin Dose 50 MG; Start 03/03/19 at 14:00 Levothyroxine Sodium (Synthroid) 50 mcg BEFORE BREAKFAST PO Last administered on 03/06/19 06:09; Admin Dose 50 MCG; Start 03/06/19 at 07:00 Lactulose (Enulose) 10 gm Q6 PRN PO CONSTIPATION Last administered on 03/06/19 07:09; Admin Dose 10 GM; Start 03/06/19 at 02:30 PALMIRA MISHRA March 06, 2019 13:37
[2019-03-06] MEDS ORDERED: FUROSEMIDE 20 MG INJ IV ONE ×2 (14:00→19:00)
[2019-03-06] MEDS: ATORVASTATIN 40 MG TAB PO SCH (20:07)
[2019-03-07] VITALS (10 sets, daily range): BP systolic 91–108; BP diastolic 53–67; PULSE 63–97; RESP 17–18
[2019-03-07] MEDS: LEVOTHYROXINE 50 MCG TAB PO SCH (06:17)
[2019-03-07] MEDS: ASPIRIN 81 MG TAB PO SCH (08:18)
[2019-03-07] MEDS: CLOPIDOGREL 75 MG TAB PO SCH (08:18)
[2019-03-07] MEDS: traMADol 50 MG TAB PO SCH ×3 (08:25→21:03)
--- NOTE | 2019-03-07 09:55 | PN ---
DATE: 03/07/2019 SUBJECTIVE: The patient is stable, no events overnight. The patient continues to have weakness. The patient has been evaluated acute rehab for possible admission to acute rehab for continued physic al therapy. The patient was given diuretic therapy overnight, tolerated well. No other events noted . OBJECTIVE: VITAL SIGNS: Blood pressure is 107/65, respirations 18, pulse 90, temperature 98.0. HEENT: Head is normocephalic. NECK: Supple. Positive JVD. HEART: Regular rate. LUNGS: Show diminished breath sounds at the base. ABDOMEN: Soft, nontender to palpation without rebound or guarding. EXTREMITIES: Negative for clubbing, cyanosis. Positive edema. DERMATOLOGIC: No rashes. MUSCULOSKELETAL: No joint effusion. NEUROLOGIC: No change in exam. MEDICATIONS: Reviewed. LABORATORY DATA: Reviewed. ASSESSMENT AND PLAN: 1. Coronary artery disease. The patient is status post percutaneous coronary intervention to left a nterior descending, currently stable. Continue medical management, continue aspirin, Plavix, Lipitor , and Coreg. 2. Ischemic cardiomyopathy with decompensation. Continue current diuretic therapy. The patient may require low dose Lasix or Bumex to maintain euvolemic status. 3. Mild anemia. Monitor hemoglobin and hematocrit levels. 4. Hypertension. Blood pressure is stable, continue to monitor. 5. Dyslipidemia. Continue statin therapy. 6. General debility. Continue physical therapy. 7. Hypothyroidism. Continue Synthroid. 8. Gastrointestinal and deep vein thrombosis prophylaxis. DISPOSITION: The patient is pending possible transfer to acute rehab once clinically stable. Dictated By: STEPHEN PORTER/NTS Conf#: [id number] DID#: [id number] CC: PALMIRA MISHRA MD;*EndCC*
--- NOTE | 2019-03-07 12:48 | CONS ---
Assessment/Plan Assessment/Plan Hospital Course (Demo Recall) Acute systolic CHF: decompensated on exam but improved with diuretics Anterior STEMI: s/p PCI of prox-mid culprit LAD and mid LAD into diag 2. Doing very well CAD: as above. Residual ostial and prox diag 2 disease will be managed medically Ischemic cardiomyopathy: EF 30-35%. -lasix 20mg IV x1 more today -lasix 20mg PO daily with KCL starting tomorrow -otherwise ok for rehab from my perspective -ASA 81mg lifelong -plavix 75mg dialy x 1 year -lipitor -coreg 3.125mng BID as tolerated -ACEI/ARB if BP tolerates Consultation Date/Type/Reason Admit Date/Time March 02, 2019 at 18:38 Initial Consult Date 03/02/19 Type of Consult Cardiology Requesting Provider: AICHA SARMIENTO DO Date/Time of Note DATE: 03/07/19 TIME: 12:47 24 HR Interval Summary Free Text/Dictation Per pt he has been urinating frequently. CXR to me shows pulm congestion though not read as such. He himself feels better and has less dyspnea. Exam/Review of Systems Vital Signs Vitals Vital Signs Date Temp Pulse Resp B/P (MAP) Pulse Ox O2 O2 Flow FiO2 Time Delivery Rate 03/07/19 84 12:06 03/07/19 98.3 18 105/55 98 11:18 (72) 03/04/19 Room Air 14:00 Intake and Output 03/06/19 03/06/19 03/07/19 1515:00 23:00 07:00 IntakeIntake Total 1000 ml 400 ml OutputOutput Total 900 ml 600 ml BalanceBalance 100 ml -200 ml Exam Constitutional: alert, oriented Psych: no complaints, nl mood/affect Neck: supple, jvd (8-9cm) Respiratory: crackles/rales (at bases, improved); No clear to auscultation Cardiovascular: regular rate and rhythm, edema (1+), systolic murmur (2/6 DUNCAN) Gastrointestinal: soft, non-tender; No distended Neurological: nl mental status, nl speech Labs Result Diagram: 03/06/1952503/06/19525 Medications Medications Current Medications Clopidogrel Bisulfate (plaVIX) 75 mg DAILY PO Last administered on 03/07/19 08:18; Admin Dose 75 MG; Start 03/03/19 at 09:00 Aspirin (Aspirin) 81 mg DAILY PO Last administered on 03/07/19 08:18; Admin Dose 81 MG; Start 03/03/19 at 09:00 Atorvastatin Calcium (Lipitor) 40 mg HS PO Last administered on 03/06/19 20:07; Admin Dose 40 MG; Start 03/02/19 at 21:00 Carvedilol (Coreg) 3.125 mg BID PO Last administered on 03/07/19 08:18; Admin Dose 3.125 MG; Start 03/02/19 at 21:00 Tramadol HCl (Ultram) 50 mg TID PO Last administered on 03/07/19 12:42; Admin Dose 50 MG; Start 03/03/19 at 14:00 Levothyroxine Sodium (Synthroid) 50 mcg BEFORE BREAKFAST PO Last administered on 03/07/19 06:17; Admin Dose 50 MCG; Start 03/06/19 at 07:00 Lactulose (Enulose) 10 gm Q6 PRN PO CONSTIPATION Last administered on 03/06/19 07:09; Admin Dose 10 GM; Start 03/06/19 at 02:30 PALMIRA MISHRA March 07, 2019 12:48
[2019-03-07] MEDS ORDERED: FUROSEMIDE 20 MG INJ IV ONE (13:00)
[2019-03-07] MEDS: ATORVASTATIN 40 MG TAB PO SCH (21:03)
[2019-03-08] VITALS (10 sets, daily range): BP systolic 93–119; BP diastolic 55–66; PULSE 75–97; RESP 18–20
[2019-03-08] MEDS: LEVOTHYROXINE 50 MCG TAB PO SCH (06:04)
[2019-03-08] MEDS: FUROSEMIDE 20 MG TAB PO SCH (08:49)
[2019-03-08] MEDS: ASPIRIN 81 MG TAB PO SCH (08:49)
[2019-03-08] MEDS: POTASSIUM CHLORIDE (SR) 10 MEQ TAB PO SCH (08:49)
[2019-03-08] MEDS: traMADol 50 MG TAB PO SCH ×3 (08:50→22:11)
[2019-03-08] MEDS: CLOPIDOGREL 75 MG TAB PO SCH (08:50)
--- NOTE | 2019-03-08 09:44 | CONS ---
Assessment/Plan Assessment/Plan Hospital Course (Demo Recall) Acute systolic CHF: now ~euvolemic Anterior STEMI: s/p PCI of prox-mid culprit LAD and mid LAD into diag 2. Doing very well CAD: as above. Residual ostial and prox diag 2 disease will be managed medically Ischemic cardiomyopathy: EF 30-35%. -ok for ARU today -lasix 20mg PO daily with KCL -ASA 81mg lifelong -plavix 75mg dialy x 1 year -lipitor -coreg 3.125mng BID as tolerated -ACEI/ARB if BP tolerates Consultation Date/Type/Reason Admit Date/Time March 02, 2019 at 18:38 Initial Consult Date 03/02/19 Type of Consult Cardiology Requesting Provider: AICHA SARMIENTO DO Date/Time of Note DATE: 03/08/19 TIME: 09:43 24 HR Interval Summary Free Text/Dictation Feels better. No complaints Exam/Review of Systems Vital Signs Vitals Vital Signs Date Temp Pulse Resp B/P (MAP) Pulse Ox O2 O2 Flow FiO2 Time Delivery Rate 03/08/19 98.3 87 20 109/57 98 07:32 (74) 03/04/19 Room Air 14:00 Intake and Output 03/07/19 03/07/19 03/08/19 1515:00 23:00 07:00 IntakeIntake Total 1000 ml 400 ml OutputOutput Total 900 ml 500 ml BalanceBalance 100 ml -100 ml Exam Constitutional: alert, oriented Psych: no complaints, nl mood/affect Head: normocephalic, atraumatic Neck: jvd (8cm) Respiratory: diminished breath sounds; No clear to auscultation Cardiovascular: regular rate and rhythm, edema (trace), systolic murmur (2/6 DUNCAN) Gastrointestinal: soft, non-tender; No distended Neurological: nl mental status, nl speech Labs Result Diagram: 03/08/19 0542 03/08/19 0542 Results 24hrs Laboratory Tests Test 03/08/19 05:42 White Blood Count 7.3 Red Blood Count 4.10 L Hemoglobin 11.4 L Hematocrit 34.6 L Mean Corpuscular Volume 84.4 Mean Corpuscular Hemoglobin 27.8 L Mean Corpuscular Hemoglobin Concent 32.9 Red Cell Distribution Width 14.1 Platelet Count 239 # Mean Platelet Volume 10.9 H Immature Granulocytes % 0.400 Neutrophils % 67.3 Lymphocytes % 15.3 Monocytes % 10.5 Eosinophils % 6.1 Basophils % 0.4 Nucleated Red Blood Cells % 0.0 Immature Granulocytes # 0.030 Neutrophils # 4.9 Lymphocytes # 1.1 Monocytes # 0.8 Eosinophils # 0.5 Basophils # 0.0 Nucleated Red Blood Cells # 0.0 Sodium Level 139 Potassium Level 4.2 Chloride Level 101 Carbon Dioxide Level 33 H Anion Gap 5 Blood Urea Nitrogen 28 H Creatinine 1.07 Est Glomerular Filtrat Rate mL/min Glucose Level 101 Calcium Level 9.5 Phosphorus Level 3.7 Magnesium Level 2.1 Medications Medications Current Medications Clopidogrel Bisulfate (plaVIX) 75 mg DAILY PO Last administered on 03/08/19 08:50; Admin Dose 75 MG; Start 03/03/19 at 09:00 Aspirin (Aspirin) 81 mg DAILY PO Last administered on 03/08/19 08:49; Admin Dose 81 MG; Start 03/03/19 at 09:00 Atorvastatin Calcium (Lipitor) 40 mg HS PO Last administered on 03/07/19 21:03; Admin Dose 40 MG; Start 03/02/19 at 21:00 Carvedilol (Coreg) 3.125 mg BID PO Last administered on 03/08/19 08:49; Admin Dose 3.125 MG; Start 03/02/19 at 21:00 Tramadol HCl (Ultram) 50 mg TID PO Last administered on 03/08/19 08:50; Admin Dose 50 MG; Start 03/03/19 at 14:00 Levothyroxine Sodium (Synthroid) 50 mcg BEFORE BREAKFAST PO Last administered on 03/08/19 06:04; Admin Dose 50 MCG; Start 03/06/19 at 07:00 Lactulose (Enulose) 10 gm Q6 PRN PO CONSTIPATION Last administered on 03/06/19 07:09; Admin Dose 10 GM; Start 03/06/19 at 02:30 Furosemide (Lasix) 20 mg DAILY PO Last administered on 03/08/19 08:49; Admin Dose 20 MG; Start 03/08/19 at 09:00 Potassium Chloride (Klor-Con 10) 10 meq DAILY PO Last administered on 03/08/19 08:49; Admin Dose 10 MEQ; Start 5/9/19 at 09:00 PALMIRA MISHRA March 08, 2019 09:44
[2019-03-08] MEDS: ATORVASTATIN 40 MG TAB PO SCH (22:11)
[2019-03-09] VITALS (10 sets, daily range): BP systolic 87–111; BP diastolic 51–63; PULSE 78–100; RESP 18–20
--- NOTE | 2019-03-09 02:28 | DS ---
DATE OF ADMISSION: 03/02/2019 DATE OF DISCHARGE: 03/08/2019 HOSPITAL COURSE: This is an 83-year-old male with a past medical history of hypothyroidism, who pres ents to [facility] with chest pain on and off for the past several days. The patie nt was ruled in for ST elevated SD and was transferred to [facility] and underwent cardiac catheterization where the patient had a PCI to the proximal LAD. The patient was then admitt ed to telemetry. The patient while in telemetry was noted to have decompensated heart failure and wa s treated with diuretic therapy with clinical improvement. The patient however had a significant dec line in his premorbid state. As a result, he will be transferred to [facility] for continued rehabilitation. At the time of discharge, he is stable in no acute distress. FINAL DIAGNOSES: 1. Coronary artery disease, status post PCI to LAD. 2. Ischemic cardiomyopathy with decompensation. Continue current medical management. 3. Anemia. Monitor hemoglobin and hematocrit levels. 4. Hypertension. Blood pressure is low. Continue to monitor. Continue current blood pressure camila men. 5. Dyslipidemia. Continue statin therapy. 6. Hypothyroidism. Continue Synthroid. 7. General debility. 8. Gastrointestinal and deep venous thrombosis prophylaxis. At the time of transfer, the patient is stable. FINAL MEDICATIONS: See reconciliation list. Dictated By: STEPHEN MANRIQUE DO NR/NTS Conf#: [id number] DID#: [id number] CC: PALMIRA MISHRA MD;*EndCC*
[2019-03-09] MEDS: LEVOTHYROXINE 50 MCG TAB PO SCH (06:44)
--- NOTE | 2019-03-09 09:03 | PN ---
DATE: 03/09/2019 SUBJECTIVE: The patient yesterday was unable to be transferred to the [facility] as no beds were available. The patient adamantly refuses to go to a halfway facility. We will attempt again to contact acute rehabilitation and to determine if there is better availability. No other events noted overnight. The patient is complaining about constipation. OBJECTIVE: VITAL SIGNS: Blood pressure is 111/63, respirations 20, pulse 83, temperature 98.2. HEENT: Head is normocephalic. NECK: Supple. HEART: Regular rate. LUNGS: Show diminished breath sounds at the base. ABDOMEN: Soft, nontender to palpation without rebound or guarding. EXTREMITIES: Negative for clubbing, cyanosis. Trace edema. DERMATOLOGIC: No rashes. MUSCULOSKELETAL: No joint effusion. NEUROLOGIC: No change in exam. MEDICATIONS: Reviewed. LABORATORY DATA: Reviewed. ASSESSMENT AND PLAN: 1. Coronary artery disease, status post percutaneous coronary intervention to the LAD. The patient is currently stable. Continue medical management, continue aspirin, Plavix, Lipitor, and Coreg. 2. Ischemic cardiomyopathy. Continue low-dose diuretic therapy and monitor renal function and elect rolytes closely. 3. Mild anemia. Continue to monitor hemoglobin and hematocrit levels. 4. Hypertension. Blood pressure is controlled. Continue to monitor. 5. Dyslipidemia. Continue statin therapy. 6. General debility. Continue physical therapy. 7. Hypothyroidism. Continue Synthroid. 8. Gastrointestinal and deep vein thrombosis prophylaxis. DISPOSITION: The patient is pending transfer to ARU once bed is stable. No bed availability at this time. The patient refused halfway facility. Dictated By: STEPHEN PORTER/NTS Conf#: [id number] DID#: [id number] CC: PALMIRA MISHRA MD;*EndCC*
[2019-03-09] MEDS: ASPIRIN 81 MG TAB PO SCH (09:42)
[2019-03-09] MEDS: CLOPIDOGREL 75 MG TAB PO SCH (09:42)
[2019-03-09] MEDS: POTASSIUM CHLORIDE (SR) 10 MEQ TAB PO SCH (09:42)
[2019-03-09] MEDS: FUROSEMIDE 20 MG TAB PO SCH (09:43)
[2019-03-09] MEDS: traMADol 50 MG TAB PO SCH ×3 (10:02→20:40)
--- NOTE | 2019-03-09 11:19 | CONS ---
Assessment/Plan Assessment/Plan Hospital Course (Demo Recall) Acute systolic CHF: exam worse today Anterior STEMI: s/p PCI of prox-mid culprit LAD and mid LAD into diag 2. Doing very well CAD: as above. Residual ostial and prox diag 2 disease will be managed medically Ischemic cardiomyopathy: EF 30-35%. -lasix 40 mg IV x 1 now -increase to lasix 40mg PO daily with KCL -still ok for ARU -ASA 81mg lifelong -plavix 75mg dialy x 1 year -lipitor -coreg 3.125mng BID as tolerated -ACEI/ARB if BP tolerates Consultation Date/Type/Reason Admit Date/Time March 02, 2019 at 18:38 Initial Consult Date 03/02/19 Type of Consult Cardiology Requesting Provider: AICHA SARMIENTO DO Date/Time of Note DATE: 03/09/19 TIME: 11:18 24 HR Interval Summary Free Text/Dictation More SOB today. Awaiting ARU transfer Exam/Review of Systems Vital Signs Vitals Vital Signs Date Temp Pulse Resp B/P (MAP) Pulse Ox O2 O2 Flow FiO2 Time Delivery Rate 03/09/19 98.7 81 20 101/59 98 11:17 (73) Intake and Output 03/08/19 03/08/19 03/09/19 1515:00 23:00 07:00 IntakeIntake Total 820 ml 120 ml OutputOutput Total 900 ml 750 ml BalanceBalance -80 ml -630 ml Exam Constitutional: alert, oriented Head: normocephalic, atraumatic Neck: jvd (9cm) Respiratory: crackles/rales (mid lungs); No clear to auscultation Cardiovascular: regular rate and rhythm, edema (1+), systolic murmur (2/6 DUNCAN) Gastrointestinal: soft, non-tender; No distended Labs Result Diagram: 03/08/1954103/08/19541 Medications Medications Current Medications Clopidogrel Bisulfate (plaVIX) 75 mg DAILY PO Last administered on 03/09/19at 09:42; Admin Dose 75 MG; Start 03/03/19 at 09:00 Aspirin (Aspirin) 81 mg DAILY PO Last administered on 03/09/19at 09:42; Admin Dose 81 MG; Start 03/03/19 at 09:00 Atorvastatin Calcium (Lipitor) 40 mg HS PO Last administered on 03/08/19 22:11; Admin Dose 40 MG; Start 03/02/19 at 21:00 Carvedilol (Coreg) 3.125 mg BID PO Last administered on 03/09/19 09:42; Admin Dose 3.125 MG; Start 03/02/19 at 21:00 Tramadol HCl (Ultram) 50 mg TID PO Last administered on 03/09/19 10:02; Admin Dose 50 MG; Start 03/03/19 at 14:00 Levothyroxine Sodium (Synthroid) 50 mcg BEFORE BREAKFAST PO Last administered on 03/09/19 06:44; Admin Dose 50 MCG; Start 03/06/19 at 07:00 Lactulose (Enulose) 10 gm Q6 PRN PO CONSTIPATION Last administered on 03/06/19 07:09; Admin Dose 10 GM; Start 03/06/19 at 02:30 Furosemide (Lasix) 20 mg DAILY PO Last administered on 03/09/19 09:43; Admin Dose 20 MG; Start 03/08/19 at 09:00 Potassium Chloride (Klor-Con 10) 10 meq DAILY PO Last administered on 03/09/19 09:42; Admin Dose 10 MEQ; Start 03/08/19 at 09:00 PALMIRA MISHRA March 09, 2019 11:19
[2019-03-09] MEDS ORDERED: FUROSEMIDE 40 MG INJ IV ONE (11:30)
[2019-03-09] MEDS: ATORVASTATIN 40 MG TAB PO SCH (20:39)
[2019-03-10] VITALS (11 sets, daily range): BP systolic 92–115; BP diastolic 56–65; PULSE 81–92; RESP 18–22
[2019-03-10] MEDS: LEVOTHYROXINE 50 MCG TAB PO SCH (06:35)
[2019-03-10] MEDS: FUROSEMIDE 40 MG TAB PO SCH (08:55)
[2019-03-10] MEDS: CLOPIDOGREL 75 MG TAB PO SCH (08:55)
[2019-03-10] MEDS: ASPIRIN 81 MG TAB PO SCH (08:55)
[2019-03-10] MEDS: POTASSIUM CHLORIDE (SR) 10 MEQ TAB PO SCH (08:55)
[2019-03-10] MEDS: traMADol 50 MG TAB PO SCH ×3 (08:59→20:26)
--- NOTE | 2019-03-10 12:37 | CONS ---
Assessment/Plan Assessment/Plan Hospital Course (Demo Recall) 1. Coronary artery disease, status post percutaneous coronary intervention to the LAD. The patient is currently stable. Continue medical management, continue aspirin, Plavix, Lipitor, and Coreg. 2. Ischemic cardiomyopathy. s/p lasix iv. monitor renal function and electrolytes closely. 3. Mild anemia. Continue to monitor hemoglobin and hematocrit levels. 4. Hypertension. Blood pressure is controlled. Continue to monitor. 5. Dyslipidemia. Continue statin therapy. 6. General debility. Continue physical therapy. 7. Hypothyroidism. Continue Synthroid. 8. Gastrointestinal and deep vein thrombosis prophylaxis. 9. av block: still on coreg. will defer to cardiology. DISPOSITION: The patient is pending transfer to ARU once is stable. No bed availability at this time. The patient refused retirement facility. Consultation Date/Type/Reason Admit Date/Time March 02, 2019 at 18:38 Initial Consult Date 03/02/19 Requesting Provider: AICHA SARMIENTO DO Date/Time of Note DATE: 03/10/19 TIME: 12:35 24 HR Interval Summary Free Text/Dictation had AV block. denies shortness of breath, chest pain, n/v d/w rn gen nad cv rrr pulm ctab abd soft, nd, nt +bs ext: no edema Exam/Review of Systems Exam Vitals Vital Signs Date Temp Pulse Resp B/P (MAP) Pulse Ox O2 O2 Flow FiO2 Time Delivery Rate 03/10/19 97.8 84 22 92/62 (72) 96 Room Air 11:46 Intake and Output 03/09/19 03/09/19 03/10/19 1515:00 23:00 07:00 IntakeIntake Total 700 ml 600 ml OutputOutput Total 600 ml 700 ml BalanceBalance 100 ml -100 ml Results Result Diagram: 03/10/19 0502 03/10/19 0502 Results 24hrs Laboratory Tests Test 03/10/19 05:02 White Blood Count 7.2 Red Blood Count 4.10 L Hemoglobin 11.5 L Hematocrit 34.5 L Mean Corpuscular Volume 84.1 Mean Corpuscular Hemoglobin 28.0 L Mean Corpuscular Hemoglobin Concent 33.3 Red Cell Distribution Width 14.1 Platelet Count 273 Mean Platelet Volume 10.7 H Immature Granulocytes % 0.300 Neutrophils % 63.7 Lymphocytes % 18.4 Monocytes % 11.7 H Eosinophils % 5.5 Basophils % 0.4 Nucleated Red Blood Cells % 0.0 Immature Granulocytes # 0.020 Neutrophils # 4.6 Lymphocytes # 1.3 Monocytes # 0.9 Eosinophils # 0.4 Basophils # 0.0 Nucleated Red Blood Cells # 0.0 Sodium Level 139 Potassium Level 3.8 Chloride Level 102 Carbon Dioxide Level 32 H Anion Gap 5 Blood Urea Nitrogen 23 H Creatinine 0.97 Est Glomerular Filtrat Rate mL/min Glucose Level 93 Calcium Level 9.5 Phosphorus Level 3.3 Magnesium Level 2.1 Medications Medication Current Medications Clopidogrel Bisulfate (plaVIX) 75 mg DAILY PO Last administered on 03/10/19 08:55; Admin Dose 75 MG; Start 03/03/19 at 09:00 Aspirin (Aspirin) 81 mg DAILY PO Last administered on 03/10/19 08:55; Admin Dose 81 MG; Start 03/03/19 at 09:00 Atorvastatin Calcium (Lipitor) 40 mg HS PO Last administered on 03/09/19 20:39; Admin Dose 40 MG; Start 03/02/19 at 21:00 Carvedilol (Coreg) 3.125 mg BID PO Last administered on 03/10/19 08:55; Admin Dose 3.125 MG; Start 03/02/19 at 21:00 Tramadol HCl (Ultram) 50 mg TID PO Last administered on 03/10/19 08:59; Admin Dose 50 MG; Start 03/03/19 at 14:00 Levothyroxine Sodium (Synthroid) 50 mcg BEFORE BREAKFAST PO Last administered on 03/10/19 06:35; Admin Dose 50 MCG; Start 03/06/19 at 07:00 Lactulose (Enulose) 10 gm Q6 PRN PO CONSTIPATION Last administered on 03/06/19 07:09; Admin Dose 10 GM; Start 03/06/19 at 02:30 Potassium Chloride (Klor-Con 10) 10 meq DAILY PO Last administered on 03/10/19 08:55; Admin Dose 10 MEQ; Start 03/08/19 at 09:00 Furosemide (Lasix) 40 mg DAILY PO Last administered on 03/10/19 08:55; Admin Dose 40 MG; Start 03/10/19 at 09:00 MAKENNA KUMAR MD March 10, 2019 12:37
[2019-03-10] MEDS: ATORVASTATIN 40 MG TAB PO SCH (20:26)
[2019-03-11] VITALS (9 sets, daily range): BP systolic 96–110; BP diastolic 52–60; PULSE 68–94; RESP 19–22
[2019-03-11] MEDS: LEVOTHYROXINE 50 MCG TAB PO SCH (08:19)
[2019-03-11] MEDS: FUROSEMIDE 40 MG TAB PO SCH (08:20)
[2019-03-11] MEDS: POTASSIUM CHLORIDE (SR) 10 MEQ TAB PO SCH (08:21)
[2019-03-11] MEDS: CLOPIDOGREL 75 MG TAB PO SCH (08:21)
[2019-03-11] MEDS: ASPIRIN 81 MG TAB PO SCH (08:21)
[2019-03-11] MEDS: traMADol 50 MG TAB PO SCH ×2 (08:24→14:22)
--- NOTE | 2019-03-11 12:34 | CONS ---
Assessment/Plan Assessment/Plan Hospital Course (Demo Recall) 1. Coronary artery disease, status post percutaneous coronary intervention to the LAD. The patient is currently stable. Continue medical management, continue aspirin, Plavix, Lipitor, and Coreg. 2. Ischemic cardiomyopathy. s/p lasix iv. monitor renal function and electrolytes closely. 3. Mild anemia. Continue to monitor hemoglobin and hematocrit levels. 4. Hypertension. Blood pressure is controlled. Continue to monitor. 5. Dyslipidemia. Continue statin therapy. 6. General debility. Continue physical therapy. 7. Hypothyroidism. Continue Synthroid. 8. Gastrointestinal and deep vein thrombosis prophylaxis. DISPOSITION: The patient is pending transfer to ARU today. . The patient refused residential facility. Consultation Date/Type/Reason Admit Date/Time March 02, 2019 at 18:38 Initial Consult Date 03/02/19 Requesting Provider: AICHA SARMIENTO DO Date/Time of Note DATE: 03/11/19 TIME: 12:33 24 HR Interval Summary Free Text/Dictation shortness of breath at baseline. denies n/v or chest pain gen nad cv rrr pulm ctab abd soft, nd, nt +bs ext: no edema Exam/Review of Systems Exam Vitals Vital Signs Date Temp Pulse Resp B/P (MAP) Pulse Ox O2 O2 Flow FiO2 Time Delivery Rate 03/11/19 84 12:00 03/11/19 97.8 22 96/52 (67) 96 Room Air 11:26 Intake and Output 03/10/19 03/10/19 03/11/19 1515:00 23:00 07:00 IntakeIntake Total 700 ml 250 ml OutputOutput Total 950 ml 850 ml BalanceBalance -250 ml -600 ml Results Result Diagram: 03/11/19 0517 03/11/19 0517 Results 24hrs Laboratory Tests Test 03/11/19 05:17 White Blood Count 7.6 Red Blood Count 3.96 L Hemoglobin 11.0 L Hematocrit 33.1 L Mean Corpuscular Volume 83.6 Mean Corpuscular Hemoglobin 27.8 L Mean Corpuscular Hemoglobin Concent 33.2 Red Cell Distribution Width 13.9 Platelet Count 296 Mean Platelet Volume 10.6 H Immature Granulocytes % 0.400 Neutrophils % 63.9 Lymphocytes % 18.7 Monocytes % 11.3 H Eosinophils % 5.3 Basophils % 0.4 Nucleated Red Blood Cells % 0.0 Immature Granulocytes # 0.030 Neutrophils # 4.9 Lymphocytes # 1.4 Monocytes # 0.9 Eosinophils # 0.4 Basophils # 0.0 Nucleated Red Blood Cells # 0.0 Sodium Level 138 Potassium Level 4.0 Chloride Level 102 Carbon Dioxide Level 32 H Anion Gap 4 L Blood Urea Nitrogen 23 H Creatinine 1.00 Est Glomerular Filtrat Rate mL/min Glucose Level 94 Calcium Level 9.1 Phosphorus Level 3.6 Magnesium Level 2.0 Medications Medication Current Medications Clopidogrel Bisulfate (plaVIX) 75 mg DAILY PO Last administered on 03/11/19 08:21; Admin Dose 75 MG; Start 03/03/19 at 09:00 Aspirin (Aspirin) 81 mg DAILY PO Last administered on 03/11/19 08:21; Admin Dose 81 MG; Start 03/03/19 at 09:00 Atorvastatin Calcium (Lipitor) 40 mg HS PO Last administered on 03/10/19 20:26; Admin Dose 40 MG; Start 03/02/19 at 21:00 Carvedilol (Coreg) 3.125 mg BID PO Last administered on 03/11/19 08:20; Admin Dose 3.125 MG; Start 03/02/19 at 21:00 Tramadol HCl (Ultram) 50 mg TID PO Last administered on 03/11/19 08:24; Admin Dose 50 MG; Start 03/03/19 at 14:00 Levothyroxine Sodium (Synthroid) 50 mcg BEFORE BREAKFAST PO Last administered on 03/11/19 08:19; Admin Dose 50 MCG; Start 03/06/19 at 07:00 Lactulose (Enulose) 10 gm Q6 PRN PO CONSTIPATION Last administered on 03/06/19 07:09; Admin Dose 10 GM; Start 03/06/19 at 02:30 Potassium Chloride (Klor-Con 10) 10 meq DAILY PO Last administered on 03/11/19 08:21; Admin Dose 10 MEQ; Start 03/08/19 at 09:00 Furosemide (Lasix) 40 mg DAILY PO Last administered on 03/11/19 08:20; Admin Dose 40 MG; Start 03/10/19 at 09:00 MAKENNA KUMAR MD March 11, 2019 12:34
[2019-03-11] MEDS: LACTULOSE 30ML CUP PO PRN (14:21)
== END 2019-03-11 18:26 | DRG 246 ==
LOC: E/R 15:56 → CCL 16:10 → SDS 16:10 → CCL 18:13 → ICU 18:38 → 6WM 03-04 15:28
PROVIDERS: ADMIT Internal Medicine Interventional Cardiology; ATTEND Internal Medicine Interventional Cardiology
PROC: B211YZZ Fluoroscopy of Multiple Coronary Arteries using Other Contrast (ICD-10-PCS; 2019-03-02)
PROC: 3E033PZ Introduction of Platelet Inhibitor into Peripheral Vein, Percutaneous Approach (ICD-10-PCS; 2019-03-02)
PROC: 027035Z Dilation of Coronary Artery, One Artery with Two Drug-eluting Intraluminal Devices, Percutaneous Approach (ICD-10-PCS; principal; 2019-03-02 16:30)
PROC: 4A023N7 Measurement of Cardiac Sampling and Pressure, Left Heart, Percutaneous Approach (ICD-10-PCS; 2019-03-02 16:30)
DX: I21.02 ST elevation (STEMI) myocardial infarction involving left anterior descending coronary artery (principal); I50.23 Acute on chronic systolic (congestive) heart failure; I11.0 Hypertensive heart disease with heart failure; I25.10 Atherosclerotic heart disease of native coronary artery without angina pectoris; I25.5 Ischemic cardiomyopathy; E03.9 Hypothyroidism, unspecified; E78.5 Hyperlipidemia, unspecified; D64.9 Anemia, unspecified; M25.569 Pain in unspecified knee
CPT/HCPCS: 36415; 71045; 80048; 80061; 82962; 83735; 84100; 84484; 85025; 87081; 93005; 93306; 96374; 96375; 97110; 97162; 97530; C1725; C1874; C1887; C9601; C9606; J0583; J1327; J1644; J1940; J2250; J2270; J2405; J3010

== ENCOUNTER 2019-03-09 13:42 | Inpatient (IN) | payer MEDICARE, OTHER ==
[~2019-03-09] VITALS: Ht 170.2 cm; Wt 81.0 kg
[~2019-03-09 13:42] MED LIST: DICL100G37 TOP; FURO40TA4 PO; LEVO50TA7 PO; TRAM50TA PO
[2019-03-11 19:57] VITALS: Ht 170.2 cm; Wt 81.0 kg
[2019-03-11 20:00] VITALS: BP 92/54; PULSE 89; RESP 18
[2019-03-11] MEDS ORDERED: LACTULOSE 30ML CUP PO PRN (22:00)
[2019-03-11] MEDS: ATORVASTATIN 40 MG TAB PO SCH (22:21)
[2019-03-11] MEDS: traMADol 50 MG TAB PO SCH (22:22)
[2019-03-11] MEDS ORDERED: MAGNESIUM HYDROXIDE 30ML CUP PO PRN (22:30)
[2019-03-11] MEDS ORDERED: ACETAMINOPHEN 325 MG TAB PO PRN (22:30)
[2019-03-11] MEDS ORDERED: BISACODYL 10 MG SUPP PR PRN (22:30)
[2019-03-12 02:00] VITALS: BP 111/62; PULSE 103; RESP 20
[2019-03-12] MEDS: LEVOTHYROXINE 50 MCG TAB PO SCH (06:52)
[2019-03-12 07:51] VITALS: BP 110/69; PULSE 85; RESP 18
--- NOTE | 2019-03-12 08:45 | HP ---
DATE OF ADMISSION: 03/11/2019 CHIEF COMPLAINT: Debility, status post percutaneous coronary intervention. HISTORY OF PRESENT ILLNESS: This is an 83-year-old male with a past medical history of hypothyroidis m who initially presented to an outside hospital with complaints of chest pain. The patient was rule d in for ST elevated myocardial infarction and was transferred to [facility] where he underwent cardiac catheterization, percutaneous coronary intervention, paroxysmal mid LAD and diag onal. Postoperatively, the patient was admitted to the [facility]. The patient wa s followed up by [facility] was noted to have decompensated heart failure and was treated with diuretic therapy. The patient, however, suffered a significant decline in his premorbid state, as a result was transferred to [facility] Acute [facility]hab for continued care. Upon my evaluation of the patient at this time, he is currently stable. He denies any fevers, chills , nausea or vomiting. PAST MEDICAL HISTORY: As stated above, history of coronary artery disease, history of hypertension, history of hypothyroidism, history of arthritis. PAST SURGICAL HISTORY: Status post cardiac catheterization. FAMILY HISTORY: No family history of kidney disease. SOCIAL HISTORY: Does not drink, smoke, do drugs. MEDICATIONS: The patient's medications have been reviewed. REVIEW OF SYSTEMS: A 14-point review of systems was conducted. Pertinent positives stated in HPI, o therwise negative. PHYSICAL EXAMINATION: VITAL SIGNS: Blood pressure is 110/60, respirations 22, pulse 94, temperature 98.6. HEENT: Head is normocephalic. NECK: Supple. HEART: Regular rate. LUNGS: Show diminished breath sounds at the base. ABDOMEN: Soft, nontender to palpation without rebound or guarding. EXTREMITIES: Negative for clubbing, cyanosis. Trace edema. DERMATOLOGIC: No rashes. MUSCULOSKELETAL: No joint effusion. NEUROLOGIC: No change in exam. LABORATORY DATA: Reviewed. ASSESSMENT AND PLAN: 1. Coronary artery disease, status post percutaneous coronary intervention to the LAD. The patient is currently stable. Continue current medical management. Continue aspirin, Plavix, Lipitor. Velma nue Coreg. 2. Ischemic cardiomyopathy. Continue current medical management. Continue intermittent diuretic th erapy as needed. 3. Anemia. Monitor hemoglobin and hematocrit levels. 4. Hypertension. Continue current blood pressure regimen. 5. Dyslipidemia. Continue statin therapy. 6. Hypothyroidism. Continue Synthroid. 7. General debility. Continue physical therapy. 8. Gastrointestinal and deep vein thrombosis prophylaxis. Dictated By: STEPHEN MANRIQUE DO NR/WALTER Conf#: [id number] DID#: [id number] CC: FARHAD SANTANA MD; STEPHEN MANRIQUE DO;*EndCC*
[2019-03-12] MEDS: POTASSIUM CHLORIDE (SR) 10 MEQ TAB PO SCH (09:06)
[2019-03-12] MEDS: ASPIRIN 81 MG TAB PO SCH (09:06)
[2019-03-12] MEDS: DOCUSATE SODIUM 100 MG CAP PO SCH ×2 (09:07→21:16)
[2019-03-12] MEDS: traMADol 50 MG TAB PO SCH ×3 (09:08→21:16)
[2019-03-12] MEDS: FUROSEMIDE 40 MG TAB PO SCH (09:08)
[2019-03-12] MEDS: CLOPIDOGREL 75 MG TAB PO SCH (09:09)
--- NOTE | 2019-03-12 11:29 | CONS ---
Assessment/Plan Assessment/Plan Hospital Course (Demo Recall) Chronic systolic CHF: !euvolemic Anterior STEMI: s/p PCI of prox-mid culprit LAD and mid LAD into diag 2. Doing very well CAD: as above. Residual ostial and prox diag 2 disease will be managed medically Ischemic cardiomyopathy: EF 30-35%. -lasix 40mg PO daily with KCL -ASA 81mg lifelong -plavix 75mg dialy x 1 year -lipitor -coreg 3.125mng BID as tolerated -ACEI/ARB if BP tolerates Consultation Date/Type/Reason Admit Date/Time March 11, 2019 at 19:40 Initial Consult Date Type of Consult Cardiology Date/Time of Note DATE: 03/12/19 TIME: 11:27 24 HR Interval Summary Free Text/Dictation Transferred to ARU. Complaining of being in a shared room. Otherwise no CP or SOB. Exam/Review of Systems Vital Signs Vitals Vital Signs Date Temp Pulse Resp B/P (MAP) Pulse Ox O2 O2 Flow FiO2 Time Delivery Rate 03/12/19 98.1 85 18 110/69 96 Room Air 07:51 (83) Intake and Output 03/11/19 03/11/19 03/12/19 1515:00 23:00 07:00 IntakeIntake Total 200 ml 200 ml OutputOutput Total 200 ml 250 ml BalanceBalance 0 ml -50 ml Exam Constitutional: alert, oriented Psych: no complaints, nl mood/affect Neck: No jvd Respiratory: diminished breath sounds; No clear to auscultation Cardiovascular: regular rate and rhythm, edema (trace); No systolic murmur Gastrointestinal: soft, non-tender; No distended Neurological: nl mental status, nl speech Labs Result Diagram: 03/12/19 0629 03/12/1929 Results 24hrs Laboratory Tests Test 03/11/19 21:00 03/12/19 06:29 Urine Color YELLOW Urine Clarity CLEAR Urine pH 7.0 Urine Specific Sterling 1.014 Urine Ketones NEGATIVE Urine Nitrite NEGATIVE Urine Bilirubin NEGATIVE Urine Urobilinogen 2+ H Urine Leukocyte Esterase NEGATIVE Urine Microscopic RBC 10 H Urine Microscopic WBC 0 Urine Hemoglobin 1+ H Urine Glucose NEGATIVE Urine Total Protein NEGATIVE White Blood Count 7.8 Red Blood Count 3.97 L Hemoglobin 11.0 L Hematocrit 33.6 L Mean Corpuscular Volume 84.6 Mean Corpuscular Hemoglobin 27.7 L Mean Corpuscular Hemoglobin Concent 32.7 Red Cell Distribution Width 13.7 Platelet Count 294 Mean Platelet Volume 10.4 Immature Granulocytes % 0.300 Neutrophils % 64.8 Lymphocytes % 18.4 Monocytes % 11.0 Eosinophils % 5.0 Basophils % 0.5 Nucleated Red Blood Cells % 0.0 Immature Granulocytes # 0.020 Neutrophils # 5.1 Lymphocytes # 1.4 Monocytes # 0.9 Eosinophils # 0.4 Basophils # 0.0 Nucleated Red Blood Cells # 0.0 Sodium Level 135 Potassium Level 3.8 Chloride Level 100 Carbon Dioxide Level 31 Anion Gap 4 L Blood Urea Nitrogen 24 H Creatinine 0.95 Est Glomerular Filtrat Rate mL/min Glucose Level 91 Calcium Level 9.5 Total Bilirubin 0.7 Direct Bilirubin 0.00 Indirect Bilirubin 0.7 Aspartate Amino Transf (AST/SGOT) 36 Alanine Aminotransferase (ALT/SGPT) 60 Alkaline Phosphatase 126 H Total Protein 5.6 L Albumin 2.9 L Globulin 2.70 Albumin/Globulin Ratio 1.07 Medications Medications Current Medications Aspirin (Aspirin) 81 mg DAILY PO Last administered on 03/12/19 09:06; Admin Dose 81 MG; Start 03/12/19 at 09:00 Atorvastatin Calcium (Lipitor) 40 mg HS PO Last administered on 03/11/19 22:21; Admin Dose 40 MG; Start 03/11/19 at 22:00 Carvedilol (Coreg) 3.125 mg BID PO Last administered on 03/12/19 09:09; Admin Dose 3.125 MG; Start 03/11/19 at 22:00 Clopidogrel Bisulfate (plaVIX) 75 mg DAILY PO Last administered on 03/12/19 09:09; Admin Dose 75 MG; Start 03/12/19 at 09:00 Furosemide (Lasix) 40 mg DAILY PO Last administered on 03/12/19 09:08; Admin Dose 40 MG; Start 03/12/19 at 09:00 Lactulose (Enulose) 10 gm Q6 PRN PO CONSTIPATION; Start 03/11/19 at 22:00 Levothyroxine Sodium (Synthroid) 50 mcg BEFORE BREAKFAST PO Last administered on 03/12/19 06:52; Admin Dose 50 MCG; Start 03/12/19 at 07:00 Potassium Chloride (Klor-Con 10) 10 meq DAILY PO Last administered on 5/13/19at 09:06; Admin Dose 10 MEQ; Start 03/12/19 at 09:00 Tramadol HCl (Ultram) 50 mg TID PO Last administered on 03/12/19at 09:08; Admin Dose 50 MG; Start 03/11/19 at 22:00 Docusate Sodium (Colace) 100 mg BID PO Last administered on 03/12/19at 09:07; Admin Dose 100 MG; Start 03/12/19 at 09:00 Senna (Senokot) 1 tab QHS PO ; Start 03/12/19 at 21:00 Acetaminophen (Tylenol Tab) 650 mg Q4H PRN PO MILD PAIN(1-3)OR ELEVATED TEMP; Start 03/11/19 at 22:30 Bisacodyl (Dulcolax Supp) 10 mg DAILY PRN CA CONSTIPATION; Start 03/11/19 at 22:30 Magnesium Hydroxide (Milk Of Mag) 30 ml BID PRN PO CONSTIPATION; Start 03/11/19 at 22:30 Diclofenac Sodium (Voltaren 1% Gel) 4 gm TID ONCE TP ; Start 03/12/19 at 13:00; Stop 03/12/19 at 13:01 PALMIRA MISHRA March 12, 2019 11:29
[2019-03-12] MEDS ORDERED: DICLOFENAC SODIUM 1% GEL 100 GM TUBE TP ONE (13:00)
--- NOTE | 2019-03-12 13:28 | CONS ---
DATE OF ADMISSION: 03/11/2019 DATE OF CONSULTATION: 03/12/2019 REHABILITATION POST-ADMISSION PHYSICIAN EVALUATION REHABILITATION IMPAIRMENT CATEGORY: Cardiac debility status post ST elevation myocardial infarction, cardiomyopathy. ACTIVE COMORBIDITIES: 1. Anemia. 2. Hypertension. 3. Hyperlipidemia. 4. Hypothyroidism. 5. Scrotal hernia. 6. Venous stasis changes. 7. Impairments in self-care and mobility. 8. Severe osteoarthritis affecting bilateral knees. HISTORY OF PRESENT ILLNESS: The patient is an 83-year-old gentleman with a history of multiple medical comorbidities, who was admitted with chest pain. The patient was noted to have ST elevation [place]. His hospital course was also notable for ischemic cardiomyopathy, and anemia. The patient did undergo PCI of LAD. The patient now with significant impairments in self-care and mobility as compared to baseline, and has been cleared to transfer to the rehabilitation unit for comprehensive interdisciplinary rehab care. If comorbidities, bilateral osteoarthrosis severe osteoarthritis affecting bilateral knees. FUNCTIONAL HISTORY: Prior to recent events, he was independent in self-care tasks and mobility. Currently, he requires moderate to maximal assist for self- care and mobility tasks. FAMILY AND SOCIAL HISTORY: The patient reports living at home and hopes to return there upon discharge. PAST MEDICAL HISTORY: 1. Cardiomyopathy. 2. Anemia. 3. Hypertension. 4. Hyperlipidemia. 5. Hypothyroidism. 6. Scrotal hernia. 7. Sleep apnea. 8. Bilateral lower extremity edema. 9. Osteoarthritis affecting bilateral knees in addition to bilateral shoulders. CURRENT MEDICATIONS: 1. Aspirin 81 mg p.o. daily. 2. Lipitor 40 mg p.o. at bedtime. 3. Coreg 3.125 mg p.o. b.i.d. 4. Plavix 75 mg p.o. daily. 5. Lasix 40 mg p.o. daily. 6. Synthroid 50 mcg p.o. q.a.m. 7. Klor-Con 10 mEq p.o. daily. 8. Ultram p.r.n. ALLERGIES: The patient with no known drug allergies. PHYSICAL EXAMINATION: VITAL SIGNS: The patient is currently afebrile with stable vital signs. HEENT: Extraocular motion intact. Oropharynx clear. NECK: Supple. LUNGS: Clear anteriorly. CARDIAC: S1, S2. ABDOMEN: Soft, nontender, positive bowel sounds. GENITOURINARY: Exam reveals significant scrotal edema. NEUROLOGIC: He is awake, alert, oriented x3, can follow simple 1-step commands. He demonstrates antigravity strength in bilateral upper extremity and lower extremity. Does have impaired dynamic balance. INTEGUMENT: Does reveal chronic venous stasis changes with skin discoloration in addition to blanchable heel erythema bilaterally. PLAN: The patient has been admitted for comprehensive interdisciplinary acute rehab and is anticipated to tolerate 3 hours of daily therapy in divided doses for at least 5/7 days a week. Treatment plan will include: 1. Physical therapy to focus on bed mobility, transfers, and household ambulation with the goal of having patient reach standby assist level. 2. Occupational therapy to focus on hygiene, grooming, dressing, bathing, and toileting activities with the goal of having patient reach standby assist level. 3. Rehabilitation nursing for carryover of therapeutic interventions, the goal of continent of bowel and bladder, the goal of improved skin integrity and patient education with regard to the aforementioned issues. ESTIMATED LENGTH OF STAY: 14 days. Rehabilitation Barrier: Osteoarthritis Intervention for barrier: Interdisciplinary rehab DISPOSITION GOAL: Home with family. I acknowledge that I performed a full physical examination on this patient within 24 hours of admission to the rehabilitation unit. I believe the patient is a good candidate for comprehensive interdisciplinary rehab care and is anticipated to make reasonable goals in a reasonable period of time as outlined above. I attest that the patient qualifies for the interdisciplinary acute rehabilitation unit stay and is best managed at this level of care and meets criteria for ARU level of care and CMS guidelines. Dictated By: FARHAD WHEATLEY/WALTER Conf#: [id number] DID#: [id number] MTDFelisha
[2019-03-12 14:26] VITALS: BP 117/60; PULSE 86; RESP 18
[2019-03-12 20:03] VITALS: BP 101/50; PULSE 84; RESP 18
[2019-03-12] MEDS: ATORVASTATIN 40 MG TAB PO SCH (21:16)
[2019-03-12] MEDS: SENNA TAB PO SCH (21:16)
[2019-03-13] VITALS (7 sets, daily range): BP systolic 99–121; BP diastolic 52–62; PULSE 78–103; RESP 18
[2019-03-13] MEDS: LEVOTHYROXINE 50 MCG TAB PO SCH (07:30)
[2019-03-13] MEDS: ASPIRIN 81 MG TAB PO SCH (08:57)
[2019-03-13] MEDS: traMADol 50 MG TAB PO SCH ×3 (08:57→20:54)
[2019-03-13] MEDS: POTASSIUM CHLORIDE (SR) 10 MEQ TAB PO SCH (08:57)
[2019-03-13] MEDS: CLOPIDOGREL 75 MG TAB PO SCH (08:57)
[2019-03-13] MEDS: DOCUSATE SODIUM 100 MG CAP PO SCH ×2 (08:58→20:53)
[2019-03-13] MEDS: FUROSEMIDE 40 MG TAB PO SCH ×2 (09:00→18:45)
--- NOTE | 2019-03-13 09:10 | PN ---
DATE: 03/13/2019 SUBJECTIVE: The patient is stable, no events overnight. OBJECTIVE: VITAL SIGNS: Blood pressure is 99/55, pulse 90, respirations 18, temperature 97.6. HEENT: Head is normocephalic. NECK: Supple. HEART: Regular rate. LUNGS: Show diminished breath sounds at the base. ABDOMEN: Soft, nontender to palpation. No rebound or guarding. EXTREMITIES: Negative for clubbing, cyanosis. Trace edema. DERMATOLOGIC: No rashes. MUSCULOSKELETAL: No joint effusion. NEUROLOGIC: No change in exam. MEDICATIONS: Reviewed. LABORATORY DATA: Reviewed. ASSESSMENT AND PLAN: 1. Coronary artery disease, status post percutaneous coronary intervention to left anterior descendi ng. The patient is currently stable. Continue medical management. Continue aspirin, Plavix, Lipito r. 2. Ischemic cardiomyopathy. Continue medical management. Continue current diuretic regimen. 3. Anemia. Monitor hemoglobin and hematocrit levels. 4. Hypertension. Continue current blood pressure regimen. 5. Dyslipidemia. Continue statin therapy. 6. Hypothyroidism. Continue Synthroid. 7. General debility. Continue physical therapy. 8. Gastrointestinal and deep vein thrombosis prophylaxis. Dictated By: STEPHEN MANRIQUE DO NR/NTS Conf#: [id number] DID#: [id number] CC: FARHAD SANTANA MD; STEPHEN MANRIQUE DO;*EndCC*
[2019-03-13] MEDS: DICLOFENAC SODIUM 1% GEL 100 GM TUBE TP SCH ×3 (13:00→20:56)
--- NOTE | 2019-03-13 14:09 | PN ---
Date/Time of Note Date/Time of Note DATE: 03/13/19 TIME: 14:09 Subjective Motivated Objective Vital Signs Date Temp Pulse Resp B/P (MAP) Pulse Ox O2 O2 Flow FiO2 Time Delivery Rate 03/13/19 78 99/60 (73) 10:34 03/13/19 97.6 18 96 Room Air 07:40 Intake and Output 03/12/19 03/12/19 03/13/19 1515:00 23:00 07:00 IntakeIntake Total 480 ml 780 ml OutputOutput Total 150 ml 400 ml BalanceBalance 480 ml 630 ml -400 ml Exam pulm-cta abd-soft mod/max Results/Medications Result Diagram: 03/12/1962803/12/19628 Medications Current Medications Aspirin (Aspirin) 81 mg DAILY PO Last administered on 03/13/19 08:57; Admin Dose 81 MG; Start 03/12/19 at 09:00 Atorvastatin Calcium (Lipitor) 40 mg HS PO Last administered on 03/12/19 21:16; Admin Dose 40 MG; Start 03/11/19 at 22:00 Carvedilol (Coreg) 3.125 mg BID PO Last administered on 03/12/19 09:09; Admin Dose 3.125 MG; Start 03/11/19 at 22:00 Clopidogrel Bisulfate (plaVIX) 75 mg DAILY PO Last administered on 03/13/19 08:57; Admin Dose 75 MG; Start 03/12/19 at 09:00 Furosemide (Lasix) 40 mg DAILY PO Last administered on 03/12/19 09:08; Admin Dose 40 MG; Start 03/12/19 at 09:00 Lactulose (Enulose) 10 gm Q6 PRN PO CONSTIPATION; Start 03/11/19 at 22:00 Levothyroxine Sodium (Synthroid) 50 mcg BEFORE BREAKFAST PO Last administered on 03/13/19 07:30; Admin Dose 50 MCG; Start 03/12/19 at 07:00 Potassium Chloride (Klor-Con 10) 10 meq DAILY PO Last administered on 03/13/19 08:57; Admin Dose 10 MEQ; Start 03/12/19 at 09:00 Tramadol HCl (Ultram) 50 mg TID PO Last administered on 03/13/19 08:57; Admin Dose 50 MG; Start 03/11/19 at 22:00 Docusate Sodium (Colace) 100 mg BID PO Last administered on 03/13/19at 08:58; Admin Dose 100 MG; Start 03/12/19 at 09:00 Senna (Senokot) 1 tab QHS PO Last administered on 03/12/19at 21:16; Admin Dose 1 TAB; Start 03/12/19 at 21:00 Acetaminophen (Tylenol Tab) 650 mg Q4H PRN PO MILD PAIN(1-3)OR ELEVATED TEMP; Start 03/11/19 at 22:30 Bisacodyl (Dulcolax Supp) 10 mg DAILY PRN [place] CONSTIPATION; Start 03/11/19 at 22:30 Magnesium Hydroxide (Milk Of Mag) 30 ml BID PRN PO CONSTIPATION; Start 03/11/19 at 22:30 Diclofenac Sodium (Voltaren 1% Gel) 4 gm QID TP ; Start 03/13/19 at 13:00 Assessment/Plan Additional Assessment/Plan rehab- Cardiac debility status post ST elevation myocardial infarction, cardiomyopathy. Continue treatment plan Anemia. Hypertension. Hyperlipidemia. Hypothyroidism. Scrotal hernia. Venous stasis changes. Severe osteoarthritis affecting bilateral knees. FARHAD SANTANA MD March 13, 2019 14:09
--- NOTE | 2019-03-13 16:49 | CONS ---
Assessment/Plan Assessment/Plan Hospital Course (Demo Recall) Chronic systolic CHF: euvolemic Anterior STEMI: s/p PCI of prox-mid culprit LAD and mid LAD into diag 2. Doing very well CAD: as above. Residual ostial and prox diag 2 disease will be managed medically Ischemic cardiomyopathy: EF 30-35%. Discussed LifeVest with pt. He will think about it -lifevest if pt agreeable -lasix 40mg PO daily with KCL -ASA 81mg lifelong -plavix 75mg dialy x 1 year -lipitor -coreg 3.125mng BID as tolerated -ACEI/ARB if BP tolerates Consultation Date/Type/Reason Admit Date/Time March 11, 2019 at 19:40 Initial Consult Date Type of Consult Cardiology Date/Time of Note DATE: 03/13/19 TIME: 16:47 24 HR Interval Summary Free Text/Dictation No events. No complaints. No chest pain or SOB Exam/Review of Systems Vital Signs Vitals Vital Signs Date Temp Pulse Resp B/P (MAP) Pulse Ox O2 O2 Flow FiO2 Time Delivery Rate 03/13/19 97.5 98 18 121/62 98 14:11 (81) 03/13/19 Room Air 07:40 Intake and Output 03/12/19 03/12/19 03/13/19 1414:59 22:59 06:59 IntakeIntake Total 480 ml 780 ml OutputOutput Total 150 ml 400 ml BalanceBalance 480 ml 630 ml -400 ml Exam Constitutional: alert, oriented Psych: no complaints, nl mood/affect Head: normocephalic, atraumatic Neck: jvd (8cm) Respiratory: diminished breath sounds; No clear to auscultation Cardiovascular: regular rate and rhythm, edema (trace-1+) Neurological: nl mental status, nl speech Labs Result Diagram: 03/12/1962803/12/19628 Medications Medications Current Medications Aspirin (Aspirin) 81 mg DAILY PO Last administered on 03/13/19at 08:57; Admin Dose 81 MG; Start 03/12/19 at 09:00 Atorvastatin Calcium (Lipitor) 40 mg HS PO Last administered on 03/12/19at 2 1:16; Admin Dose 40 MG; Start 03/11/19 at 22:00 Carvedilol (Coreg) 3.125 mg BID PO Last administered on 5/13/19at 09:09; Admin Dose 3.125 MG; Start 03/11/19 at 22:00 Clopidogrel Bisulfate (plaVIX) 75 mg DAILY PO Last administered on 03/13/19 08:57; Admin Dose 75 MG; Start 03/12/19 at 09:00 Furosemide (Lasix) 40 mg DAILY PO Last administered on 03/12/19 09:08; Admin Dose 40 MG; Start 03/12/19 at 09:00 Lactulose (Enulose) 10 gm Q6 PRN PO CONSTIPATION; Start 03/11/19 at 22:00 Levothyroxine Sodium (Synthroid) 50 mcg BEFORE BREAKFAST PO Last administered on 03/13/19 07:30; Admin Dose 50 MCG; Start 03/12/19 at 07:00 Potassium Chloride (Klor-Con 10) 10 meq DAILY PO Last administered on 03/13/19 08:57; Admin Dose 10 MEQ; Start 03/12/19 at 09:00 Tramadol HCl (Ultram) 50 mg TID PO Last administered on 03/13/19 14:50; Admin Dose 50 MG; Start 03/11/19 at 22:00 Docusate Sodium (Colace) 100 mg BID PO Last administered on 03/13/19 08:58; Admin Dose 100 MG; Start 03/12/19 at 09:00 Senna (Senokot) 1 tab QHS PO Last administered on 03/12/19 21:16; Admin Dose 1 TAB; Start 03/12/19 at 21:00 Acetaminophen (Tylenol Tab) 650 mg Q4H PRN PO MILD PAIN(1-3)OR ELEVATED TEMP; Start 03/11/19 at 22:30 Bisacodyl (Dulcolax Supp) 10 mg DAILY PRN [place] CONSTIPATION; Start 03/11/19 at 22:30 Magnesium Hydroxide (Milk Of Mag) 30 ml BID PRN PO CONSTIPATION; Start 03/11/19 at 22:30 Diclofenac Sodium (Voltaren 1% Gel) 4 gm QID TP ; Start 03/13/19 at 13:00 PALMIRA MISHRA March 13, 2019 16:49
[2019-03-13] MEDS: ATORVASTATIN 40 MG TAB PO SCH (20:53)
[2019-03-13] MEDS: SENNA TAB PO SCH (20:54)
[2019-03-14 02:00] VITALS: BP 107/60; PULSE 99; RESP 18
[2019-03-14] MEDS: LEVOTHYROXINE 50 MCG TAB PO SCH (06:26)
[2019-03-14 07:30] VITALS: BP 114/61; PULSE 94; RESP 18
[2019-03-14] MEDS: POTASSIUM CHLORIDE (SR) 10 MEQ TAB PO SCH (08:56)
[2019-03-14] MEDS: ASPIRIN 81 MG TAB PO SCH (08:56)
[2019-03-14] MEDS: DOCUSATE SODIUM 100 MG CAP PO SCH ×2 (08:56→21:28)
[2019-03-14] MEDS: CLOPIDOGREL 75 MG TAB PO SCH (08:56)
[2019-03-14] MEDS: traMADol 50 MG TAB PO SCH ×3 (08:57→21:28)
[2019-03-14] MEDS: DICLOFENAC SODIUM 1% GEL 100 GM TUBE TP SCH ×4 (09:01→21:30)
--- NOTE | 2019-03-14 10:05 | PN ---
DATE: 03/14/2019 SUBJECTIVE: The patient is stable. No events overnight. The patient's shortness of breath is impro ving. OBJECTIVE: VITAL SIGNS: Blood pressure is 107/60, respirations 18, pulse 99, temperature 97.9. HEENT: Head is normocephalic. NECK: Supple. HEART: Regular rate. LUNGS: Show diminished breath sounds at the base. ABDOMEN: Soft, nontender to palpation without rebound or guarding. EXTREMITIES: Negative for clubbing, cyanosis. Trace edema. DERMATOLOGIC: No rashes. MUSCULOSKELETAL: No joint effusion. NEUROLOGIC: No change in exam. MEDICATIONS: The patient's medications have been reviewed. LABORATORY DATA: Reviewed. ASSESSMENT AND PLAN: 1. Coronary artery disease, status post percutaneous coronary intervention to the left anterior desc ending. The patient is currently stable. Continue medical management. Continue aspirin, Plavix, an d Lipitor. 2. Ischemic cardiomyopathy. Continue medical management. Continue diuretic regimen. 3. Anemia. Monitor hemoglobin and hematocrit levels. 4. Hypertension. Continue current blood pressure regimen. 5. Dyslipidemia. Continue statin therapy. 6. Hypothyroidism. Continue Synthroid. 7. Arrhythmia. Continue to monitor. 8. General debility. Continue physical therapy. Dictated By: STEPHEN MANRIQUE DO NR/NTS Conf#: [id number] DID#: [id number] CC: FARHAD SANTANA MD; STEPHEN MANRIQUE DO;*EndCC*
[2019-03-14 14:00] VITALS: BP 113/63; PULSE 95; RESP 18
--- NOTE | 2019-03-14 14:25 | PN ---
Date/Time of Note Date/Time of Note DATE: 03/14/19 TIME: 14:24 Subjective Feeling better Objective Vital Signs Date Temp Pulse Resp B/P (MAP) Pulse Ox O2 O2 Flow FiO2 Time Delivery Rate 03/14/19 97.8 94 18 114/61 98 Room Air 07:30 (78) Intake and Output 03/13/19 03/13/19 03/14/19 1414:59 22:59 06:59 IntakeIntake Total 300 ml 350 ml 50 ml OutputOutput Total 240 ml 100 ml BalanceBalance 60 ml 250 ml 50 ml Exam pulm-cta abd-soft max transfer Results/Medications Result Diagram: 03/14/19 0740 03/14/19 0740 Results 24 hrs Laboratory Tests Test 03/14/19 07:40 White Blood Count 7.7 Red Blood Count 3.93 L Hemoglobin 10.9 L Hematocrit 33.2 L Mean Corpuscular Volume 84.5 Mean Corpuscular Hemoglobin 27.7 L Mean Corpuscular Hemoglobin Concent 32.8 Red Cell Distribution Width 13.6 Platelet Count 276 Mean Platelet Volume 10.5 H Immature Granulocytes % 0.400 Neutrophils % 66.6 Lymphocytes % 18.6 Monocytes % 10.5 Eosinophils % 3.5 Basophils % 0.4 Nucleated Red Blood Cells % 0.0 Immature Granulocytes # 0.030 Neutrophils # 5.1 Lymphocytes # 1.4 Monocytes # 0.8 Eosinophils # 0.3 Basophils # 0.0 Nucleated Red Blood Cells # 0.0 Sodium Level 137 Potassium Level 3.8 Chloride Level 100 Carbon Dioxide Level 30 Anion Gap 7 Blood Urea Nitrogen 23 H Creatinine 0.97 Est Glomerular Filtrat Rate mL/min Glucose Level 98 Calcium Level 9.2 Phosphorus Level 3.7 Magnesium Level 2.0 Medications Current Medications Aspirin (Aspirin) 81 mg DAILY PO Last administered on 03/14/19at 08:56; Admin Dose 81 MG; Start 03/12/19 at 09:00 Atorvastatin Calcium (Lipitor) 40 mg HS PO Last administered on 03/13/19at 20:53; Admin Dose 40 MG; Start 03/11/19 at 22:00 Carvedilol (Coreg) 3.125 mg BID PO Last administered on 03/14/19at 08:59; Admin Dose 3.125 MG; Start 03/11/19 at 22:00 Clopidogrel Bisulfate (plaVIX) 75 mg DAILY PO Last administered on 03/14/19 08:56; Admin Dose 75 MG; Start 03/12/19 at 09:00 Furosemide (Lasix) 40 mg DAILY PO Last administered on 03/13/19 18:45; Admin Dose 40 MG; Start 03/12/19 at 09:00 Lactulose (Enulose) 10 gm Q6 PRN PO CONSTIPATION; Start 03/11/19 at 22:00 Levothyroxine Sodium (Synthroid) 50 mcg BEFORE BREAKFAST PO Last administered on 03/14/19 06:26; Admin Dose 50 MCG; Start 03/12/19 at 07:00 Potassium Chloride (Klor-Con 10) 10 meq DAILY PO Last administered on 03/14/19 08:56; Admin Dose 10 MEQ; Start 03/12/19 at 09:00 Tramadol HCl (Ultram) 50 mg TID PO Last administered on 03/14/19 13:06; Admin Dose 50 MG; Start 03/11/19 at 22:00 Docusate Sodium (Colace) 100 mg BID PO Last administered on 03/14/19 08:56; Admin Dose 100 MG; Start 03/12/19 at 09:00 Senna (Senokot) 1 tab QHS PO Last administered on 03/13/19 20:54; Admin Dose 1 TAB; Start 03/12/19 at 21:00 Acetaminophen (Tylenol Tab) 650 mg Q4H PRN PO MILD PAIN(1-3)OR ELEVATED TEMP; Start 03/11/19 at 22:30 Bisacodyl (Dulcolax Supp) 10 mg DAILY PRN [place] CONSTIPATION; Start 03/11/19 at 22:30 Magnesium Hydroxide (Milk Of Mag) 30 ml BID PRN PO CONSTIPATION; Start 03/11/19 at 22:30 Diclofenac Sodium (Voltaren 1% Gel) 4 gm QID TP Last administered on 03/14/19 13:06; Admin Dose 4 GM; Start 03/13/19 at 13:00 Assessment/Plan Additional Assessment/Plan rehab- Cardiac debility status post ST elevation myocardial infarction, cardiomyopathy. Continue rehab plan Anemia. Hypertension. Hyperlipidemia. Hypothyroidism. Scrotal hernia. Venous stasis changes. Severe osteoarthritis affecting bilateral knees. FARHAD SANTANA MD March 14, 2019 14:25
[2019-03-14] MEDS: FUROSEMIDE 40 MG TAB PO SCH (15:11)
--- NOTE | 2019-03-14 15:28 | CONS ---
Assessment/Plan Assessment/Plan Hospital Course (Demo Recall) Chronic systolic CHF: euvolemic Anterior STEMI: s/p PCI of prox-mid culprit LAD and mid LAD into diag 2. Doing very well CAD: as above. Residual ostial and prox diag 2 disease will be managed medically Ischemic cardiomyopathy: EF 30-35%. Discussed LifeVest with pt, agreeable -Lifevest eval initiated -lasix 40mg PO daily with KCL -ASA 81mg lifelong -plavix 75mg dialy x 1 year -lipitor -coreg 3.125mng BID as tolerated -ACEI/ARB if BP tolerates Consultation Date/Type/Reason Admit Date/Time March 11, 2019 at 19:40 Initial Consult Date Type of Consult Cardiology Date/Time of Note DATE: 03/14/19 TIME: 15:27 24 HR Interval Summary Free Text/Dictation No events. Working well with PT. No chest pain or SOB. Exam/Review of Systems Vital Signs Vitals Vital Signs Date Temp Pulse Resp B/P (MAP) Pulse Ox O2 O2 Flow FiO2 Time Delivery Rate 03/14/19 97.8 94 18 114/61 98 Room Air 07:30 (78) Intake and Output 03/13/19 03/13/19 03/14/19 1515:00 23:00 07:00 IntakeIntake Total 300 ml 350 ml 50 ml OutputOutput Total 240 ml 100 ml BalanceBalance 60 ml 250 ml 50 ml Exam Constitutional: alert Psych: no complaints, nl mood/affect Head: normocephalic, atraumatic Neck: supple; No jvd Respiratory: clear to auscultation, diminished breath sounds; No crackles/rales Cardiovascular: regular rate and rhythm, edema (trace) Gastrointestinal: soft, non-tender; No distended Neurological: nl mental status, nl speech Labs Result Diagram: 03/14/19 0740 03/14/19 0740 Results 24hrs Laboratory Tests Test 03/14/19 07:40 White Blood Count 7.7 Red Blood Count 3.93 L Hemoglobin 10.9 L Hematocrit 33.2 L Mean Corpuscular Volume 84.5 Mean Corpuscular Hemoglobin 27.7 L Mean Corpuscular Hemoglobin Concent 32.8 Red Cell Distribution Width 13.6 Platelet Count 276 Mean Platelet Volume 10.5 H Immature Granulocytes % 0.400 Neutrophils % 66.6 Lymphocytes % 18.6 Monocytes % 10.5 Eosinophils % 3.5 Basophils % 0.4 Nucleated Red Blood Cells % 0.0 Immature Granulocytes # 0.030 Neutrophils # 5.1 Lymphocytes # 1.4 Monocytes # 0.8 Eosinophils # 0.3 Basophils # 0.0 Nucleated Red Blood Cells # 0.0 Sodium Level 137 Potassium Level 3.8 Chloride Level 100 Carbon Dioxide Level 30 Anion Gap 7 Blood Urea Nitrogen 23 H Creatinine 0.97 Est Glomerular Filtrat Rate mL/min Glucose Level 98 Calcium Level 9.2 Phosphorus Level 3.7 Magnesium Level 2.0 Medications Medications Current Medications Aspirin (Aspirin) 81 mg DAILY PO Last administered on 03/14/19 08:56; Admin Dose 81 MG; Start 03/12/19 at 09:00 Atorvastatin Calcium (Lipitor) 40 mg HS PO Last administered on 03/13/19 20:53; Admin Dose 40 MG; Start 03/11/19 at 22:00 Carvedilol (Coreg) 3.125 mg BID PO Last administered on 03/14/19 08:59; Admin Dose 3.125 MG; Start 03/11/19 at 22:00 Clopidogrel Bisulfate (plaVIX) 75 mg DAILY PO Last administered on 03/14/19 08:56; Admin Dose 75 MG; Start 03/12/19 at 09:00 Furosemide (Lasix) 40 mg DAILY PO Last administered on 03/14/19 15:11; Admin Dose 40 MG; Start 03/12/19 at 09:00 Lactulose (Enulose) 10 gm Q6 PRN PO CONSTIPATION; Start 03/11/19 at 22:00 Levothyroxine Sodium (Synthroid) 50 mcg BEFORE BREAKFAST PO Last administered on 03/14/19 06:26; Admin Dose 50 MCG; Start 03/12/19 at 07:00 Potassium Chloride (Klor-Con 10) 10 meq DAILY PO Last administered on 03/14/19 08:56; Admin Dose 10 MEQ; Start 03/12/19 at 09:00 Tramadol HCl (Ultram) 50 mg TID PO Last administered on 03/14/19 13:06; Admin Dose 50 MG; Start 03/11/19 at 22:00 Docusate Sodium (Colace) 100 mg BID PO Last administered on 03/14/19 08:56; Admin Dose 100 MG; Start 03/12/19 at 09:00 Senna (Senokot) 1 tab QHS PO Last administered on 03/13/19at 20:54; Admin Dose 1 TAB; Start 03/12/19 at 21:00 Acetaminophen (Tylenol Tab) 650 mg Q4H PRN PO MILD PAIN(1-3)OR ELEVATED TEMP; Start 03/11/19 at 22:30 Bisacodyl (Dulcolax Supp) 10 mg DAILY PRN [place] CONSTIPATION; Start 03/11/19 at 22:30 Magnesium Hydroxide (Milk Of Mag) 30 ml BID PRN PO CONSTIPATION; Start 03/11/19 at 22:30 Diclofenac Sodium (Voltaren 1% Gel) 4 gm QID TP Last administered on 03/14/19at 13:06; Admin Dose 4 GM; Start 03/13/19 at 13:00 PALMIRA MISHRA March 14, 2019 15:28
[2019-03-14 20:00] VITALS: BP_SYST 11; BP_SYST 110; BP_DIAS 58; PULSE 92; RESP 18
[2019-03-14 20:10] VITALS: PULSE 90
[2019-03-14] MEDS: ATORVASTATIN 40 MG TAB PO SCH (21:28)
[2019-03-14] MEDS: SENNA TAB PO SCH (21:28)
[2019-03-15 02:00] VITALS: BP 115/60; PULSE 94; RESP 18
[2019-03-15] MEDS: LEVOTHYROXINE 50 MCG TAB PO SCH (06:41)
--- NOTE | 2019-03-15 09:48 | PN ---
DATE: 03/15/2019 SUBJECTIVE: The patient is stable. The patient is complaining about constipation. No other events noted. OBJECTIVE: VITAL SIGNS: Blood pressure is 115/60, respirations 18, pulse 94, temperature 98.2. HEENT: Head is normocephalic. NECK: Supple. HEART: Regular rate. LUNGS: Show diminished breath sounds at the base. ABDOMEN: Soft, nontender to palpation without rebound or guarding. EXTREMITIES: Negative for clubbing, cyanosis. Trace edema. DERMATOLOGIC: No rashes. MUSCULOSKELETAL: No joint effusion. NEUROLOGIC: No change in exam. MEDICATIONS: The patient's medications have been reviewed. LABORATORY DATA: Reviewed. ASSESSMENT AND PLAN: 1. Coronary artery disease, status post percutaneous coronary intervention to left anterior descendi ng. The patient is currently stable. Continue medical management, continue aspirin, Plavix, and Lip itor. 2. Ischemic cardiomyopathy. Continue medical management. Continue diuretic regimen. 3. Anemia. Continue to monitor hemoglobin and hematocrit levels. 4. Hypertension. Continue current blood pressure regimen. 5. Dyslipidemia. Continue statin therapy. 6. Hypothyroidism. Continue Synthroid. 7. Arrhythmia. Continue to monitor. 8. Constipation. We will increase bowel regimen. Dictated By: STEPHEN MANRIQUE DO NR/NTS Conf#: [id number] DID#: [id number] CC: STEPHEN MANRIQUE DO; FARHAD SANTANA MD;*EndCC*
[2019-03-15 10:29] VITALS: BP 117/65; PULSE 98; RESP 18
[2019-03-15] MEDS: DOCUSATE SODIUM 100 MG CAP PO SCH ×2 (11:23→21:00)
[2019-03-15] MEDS: traMADol 50 MG TAB PO SCH ×3 (11:23→20:30)
[2019-03-15] MEDS: FUROSEMIDE 40 MG TAB PO SCH (11:24)
[2019-03-15] MEDS: CLOPIDOGREL 75 MG TAB PO SCH (11:24)
[2019-03-15] MEDS: POTASSIUM CHLORIDE (SR) 10 MEQ TAB PO SCH (11:24)
[2019-03-15] MEDS: ASPIRIN 81 MG TAB PO SCH (11:25)
[2019-03-15] MEDS: DICLOFENAC SODIUM 1% GEL 100 GM TUBE TP SCH ×4 (11:25→20:30)
[2019-03-15] MEDS: POLYETHYLENE GLYCOL 17 GM PACKET PO SCH (11:25)
--- NOTE | 2019-03-15 13:11 | PN ---
Date/Time of Note Date/Time of Note DATE: 03/15/19 TIME: 13:11 Subjective Patient happy he will have a room change Objective Vital Signs Date Temp Pulse Resp B/P (MAP) Pulse Ox O2 O2 Flow FiO2 Time Delivery Rate 03/15/19 98.3 98 18 117/65 99 Room Air 10:29 (82) Intake and Output 03/14/19 03/14/19 03/15/19 1515:00 23:00 07:00 IntakeIntake Total 1540 ml OutputOutput Total 950 ml 1390 ml BalanceBalance -950 ml 150 ml Exam pulm-cta mod assist Results/Medications Result Diagram: 03/14/1940 03/14/19 0740 Medications Current Medications Aspirin (Aspirin) 81 mg DAILY PO Last administered on 03/15/19 11:25; Admin Dose 81 MG; Start 03/12/19 at 09:00 Atorvastatin Calcium (Lipitor) 40 mg HS PO Last administered on 03/14/19 21:28; Admin Dose 40 MG; Start 03/11/19 at 22:00 Carvedilol (Coreg) 3.125 mg BID PO Last administered on 03/14/19 08:59; Admin Dose 3.125 MG; Start 03/11/19 at 22:00 Clopidogrel Bisulfate (plaVIX) 75 mg DAILY PO Last administered on 03/15/19 11:24; Admin Dose 75 MG; Start 03/12/19 at 09:00 Furosemide (Lasix) 40 mg DAILY PO Last administered on 03/15/19 11:24; Admin Dose 40 MG; Start 03/12/19 at 09:00 Lactulose (Enulose) 10 gm Q6 PRN PO CONSTIPATION; Start 03/11/19 at 22:00 Levothyroxine Sodium (Synthroid) 50 mcg BEFORE BREAKFAST PO Last administered on 03/15/19 06:41; Admin Dose 50 MCG; Start 03/12/19 at 07:00 Potassium Chloride (Klor-Con 10) 10 meq DAILY PO Last administered on 03/15/19 11:24; Admin Dose 10 MEQ; Start 03/12/19 at 09:00 Tramadol HCl (Ultram) 50 mg TID PO Last administered on 03/15/19 11:23; Admin Dose 50 MG; Start 03/11/19 at 22:00 Docusate Sodium (Colace) 100 mg BID PO Last administered on 03/15/19 11:23; Admin Dose 100 MG; Start 03/12/19 at 09:00 Senna (Senokot) 1 tab QHS PO Last administered on 03/14/19 21:28; Admin Dose 1 TAB; Start 03/12/19 at 21:00 Acetaminophen (Tylenol Tab) 650 mg Q4H PRN PO MILD PAIN(1-3)OR ELEVATED TEMP; Start 03/11/19 at 22:30 Bisacodyl (Dulcolax Supp) 10 mg DAILY PRN [place] CONSTIPATION; Start 03/11/19 at 22:30 Magnesium Hydroxide (Milk Of Mag) 30 ml BID PRN PO CONSTIPATION; Start 03/11/19 at 22:30 Diclofenac Sodium (Voltaren 1% Gel) 4 gm QID TP Last administered on 03/15/19 11:25; Admin Dose 4 GM; Start 03/13/19 at 13:00 Polyethylene Glycol (Miralax) 17 gm DAILY PO Last administered on 03/15/19 11:25; Admin Dose 17 GM; Start 03/15/19 at 09:00 Assessment/Plan Additional Assessment/Plan rehab- Cardiac debility status post ST elevation myocardial infarction, cardiomyopathy. Continue rehab activities Anemia. Hypertension. Hyperlipidemia. Hypothyroidism. Scrotal hernia. Venous stasis changes. Severe osteoarthritis affecting bilateral knees. FARHAD SANTANA MD March 15, 2019 13:11
[2019-03-15 14:59] VITALS: BP 106/62; PULSE 84; RESP 18
--- NOTE | 2019-03-15 16:48 | CONS ---
Assessment/Plan Assessment/Plan Hospital Course (Demo Recall) Chronic systolic CHF: euvolemic Anterior STEMI: s/p PCI of prox-mid culprit LAD and mid LAD into diag 2. Doing very well CAD: as above. Residual ostial and prox diag 2 disease will be managed medically Ischemic cardiomyopathy: EF 30-35%. Discussed [facility] with pt, agreeable. Rep has already seen him -lasix 40mg PO daily with KCL -ASA 81mg lifelong -plavix 75mg dialy x 1 year -lipitor -coreg 3.125mng BID as tolerated -ACEI/ARB if BP tolerates Consultation Date/Type/Reason Admit Date/Time March 11, 2019 at 19:40 Initial Consult Date Type of Consult Cardiology Date/Time of Note DATE: 03/15/19 TIME: 16:47 24 HR Interval Summary Free Text/Dictation Seen by Talha martinez. No complaints otherwise Exam/Review of Systems Vital Signs Vitals Vital Signs Date Temp Pulse Resp B/P (MAP) Pulse Ox O2 O2 Flow FiO2 Time Delivery Rate 03/15/19 98.0 84 18 106/62 98 Room Air 14:59 (77) Intake and Output 03/14/19 03/14/19 03/15/19 1515:00 23:00 07:00 IntakeIntake Total 1540 ml OutputOutput Total 950 ml 1390 ml BalanceBalance -950 ml 150 ml Exam Constitutional: alert, oriented Psych: no complaints, nl mood/affect Neck: jvd (8cm) Respiratory: diminished breath sounds; No clear to auscultation Cardiovascular: regular rate and rhythm, edema (trace) Gastrointestinal: soft, non-tender; No distended Neurological: nl mental status, nl speech Labs Result Diagram: 03/14/19 0740 03/14/19 0740 Medications Medications Current Medications Aspirin (Aspirin) 81 mg DAILY PO Last administered on 03/15/19at 11:25; Admin Dose 81 MG; Start 03/12/19 at 09:00 Atorvastatin Calcium (Lipitor) 40 mg HS PO Last administered on 03/14/19at 21:28; Admin Dose 40 MG; Start 03/11/19 at 22:00 Carvedilol (Coreg) 3.125 mg BID PO Last administered on 03/14/19at 08:59; Admin Dose 3.125 MG; Start 03/11/19 at 22:00 Clopidogrel Bisulfate (plaVIX) 75 mg DAILY PO Last administered on 03/15/19 11:24; Admin Dose 75 MG; Start 03/12/19 at 09:00 Furosemide (Lasix) 40 mg DAILY PO Last administered on 03/15/19 11:24; Admin Dose 40 MG; Start 03/12/19 at 09:00 Lactulose (Enulose) 10 gm Q6 PRN PO CONSTIPATION; Start 03/11/19 at 22:00 Levothyroxine Sodium (Synthroid) 50 mcg BEFORE BREAKFAST PO Last administered on 03/15/19 06:41; Admin Dose 50 MCG; Start 03/12/19 at 07:00 Potassium Chloride (Klor-Con 10) 10 meq DAILY PO Last administered on 03/15/19 11:24; Admin Dose 10 MEQ; Start 03/12/19 at 09:00 Tramadol HCl (Ultram) 50 mg TID PO Last administered on 03/15/19 13:19; Admin Dose 50 MG; Start 03/11/19 at 22:00 Docusate Sodium (Colace) 100 mg BID PO Last administered on 03/15/19 11:23; Admin Dose 100 MG; Start 03/12/19 at 09:00 Senna (Senokot) 1 tab QHS PO Last administered on 03/14/19 21:28; Admin Dose 1 TAB; Start 03/12/19 at 21:00 Acetaminophen (Tylenol Tab) 650 mg Q4H PRN PO MILD PAIN(1-3)OR ELEVATED TEMP; Start 03/11/19 at 22:30 Bisacodyl (Dulcolax Supp) 10 mg DAILY PRN [place] CONSTIPATION; Start 03/11/19 at 22:30 Magnesium Hydroxide (Milk Of Mag) 30 ml BID PRN PO CONSTIPATION; Start 03/11/19 at 22:30 Diclofenac Sodium (Voltaren 1% Gel) 4 gm QID TP Last administered on 03/15/19 13:19; Admin Dose 4 GM; Start 03/13/19 at 13:00 Polyethylene Glycol (Miralax) 17 gm DAILY PO Last administered on 03/15/19 11:25; Admin Dose 17 GM; Start 03/15/19 at 09:00 PALMIRA MISHRA March 15, 2019 16:48
[2019-03-15 19:25] VITALS: BP 105/58; PULSE 88; RESP 18
[2019-03-15] MEDS: ATORVASTATIN 40 MG TAB PO SCH (20:24)
[2019-03-15 21:00] VITALS: BP 100/60; PULSE 89
[2019-03-15] MEDS: SENNA TAB PO SCH (21:00)
[2019-03-16 02:00] VITALS: BP 112/60; PULSE 85; RESP 18
[2019-03-16] MEDS: LEVOTHYROXINE 50 MCG TAB PO SCH (05:46)
[2019-03-16 07:00] VITALS: BP 109/65; PULSE 87; RESP 18
[2019-03-16] MEDS ORDERED: NA PHOSPHATE/BIPHOS 133 ML ENEMA PR PRN (08:30)
--- NOTE | 2019-03-16 08:33 | PN ---
DATE: 03/16/2019 SUBJECTIVE: The patient is stable, no events overnight. OBJECTIVE: VITAL SIGNS: Blood pressure is 117/65, pulse 98, respirations 18, temperature 98.3. HEENT: Head is normocephalic. NECK: Supple. HEART: Regular rate. LUNGS: Show diminished breath sounds at the base. ABDOMEN: Soft, nontender to palpation without rebound or guarding. EXTREMITIES: Negative for clubbing, cyanosis. Trace edema. DERMATOLOGIC: No rashes. MUSCULOSKELETAL: No joint effusion. NEUROLOGIC: No change in exam. MEDICATIONS: Reviewed. LABORATORY DATA: Reviewed. ASSESSMENT AND PLAN: 1. Coronary artery disease, status post percutaneous coronary intervention to left anterior descendi ng. The patient is currently stable. Continue medical management. Continue aspirin, Plavix, and Li pitor. 2. Ischemic cardiomyopathy. Continue medical management. Continue diuretic therapy. 3. Anemia. Monitor hemoglobin and hematocrit levels. 4. Hypertension. Continue current blood pressure regimen. 5. Dyslipidemia. Continue statin therapy. 6. Hypothyroidism. Continue Synthroid. 7. Arrhythmia. Continue to monitor. 8. Constipation. Continue current bowel regimen. The patient will be given enema needed. Dictated By: STEPHEN MANRIQUE DO NR/NTS Conf#: [id number] DID#: [id number] CC: STEPHEN MANRIQUE DO; FARHAD SANTANA MD;*End*
[2019-03-16] MEDS: DOCUSATE SODIUM 100 MG CAP PO SCH ×2 (09:44→20:42)
[2019-03-16] MEDS: CLOPIDOGREL 75 MG TAB PO SCH (09:44)
[2019-03-16] MEDS: POLYETHYLENE GLYCOL 17 GM PACKET PO SCH (09:44)
[2019-03-16] MEDS: DICLOFENAC SODIUM 1% GEL 100 GM TUBE TP SCH ×4 (09:44→20:44)
[2019-03-16] MEDS: POTASSIUM CHLORIDE (SR) 10 MEQ TAB PO SCH (09:45)
[2019-03-16] MEDS: ASPIRIN 81 MG TAB PO SCH (09:45)
[2019-03-16] MEDS: traMADol 50 MG TAB PO SCH ×3 (09:45→20:44)
[2019-03-16] MEDS: FUROSEMIDE 40 MG TAB PO SCH (09:45)
--- NOTE | 2019-03-16 13:50 | CONS ---
Assessment/Plan Assessment/Plan Hospital Course (Demo Recall) Chronic systolic CHF: euvolemic Anterior STEMI: s/p PCI of prox-mid culprit LAD and mid LAD into diag 2. Doing very well CAD: as above. Residual ostial and prox diag 2 disease will be managed medically Ischemic cardiomyopathy: EF 30-35%. Discussed LifeVest with pt, agreeable. Rep has already seen him -add aldactone 25mg daily. Check renal function/K in 1-2 days -lasix 40mg PO daily with KCL -ASA 81mg lifelong -plavix 75mg dialy x 1 year -lipitor -coreg 3.125mng BID as tolerated -ACEI/ARB if BP tolerates Consultation Date/Type/Reason Admit Date/Time March 11, 2019 at 19:40 Initial Consult Date Type of Consult Cardiology Date/Time of Note DATE: 03/16/19 TIME: 13:48 24 HR Interval Summary Free Text/Dictation No events. No complaints. Apparently was taking lasix/metolazone/aldactone as outpt Exam/Review of Systems Vital Signs Vitals Vital Signs Date Temp Pulse Resp B/P (MAP) Pulse Ox O2 O2 Flow FiO2 Time Delivery Rate 03/16/19 97.8 87 18 109/65 97 Room Air 07:00 (80) Intake and Output 03/15/19 03/15/19 03/16/19 1515:00 23:00 07:00 IntakeIntake Total 1430 ml 540 ml 750 ml OutputOutput Total 300 ml 1150 ml 600 ml BalanceBalance 1130 ml -610 ml 150 ml Exam Constitutional: alert, oriented Psych: no complaints, nl mood/affect Head: normocephalic, atraumatic Neck: No jvd Respiratory: diminished breath sounds; No clear to auscultation Cardiovascular: regular rate and rhythm, edema (trace-1+) Gastrointestinal: soft, non-tender; No distended Neurological: nl mental status, nl speech Labs Result Diagram: 03/14/1940 03/14/19 0740 Medications Medications Current Medications Aspirin (Aspirin) 81 mg DAILY PO Last administered on 03/16/19at 09:45; Admin Dose 81 MG; Start 03/12/19 at 09:00 Atorvastatin Calcium (Lipitor) 40 mg HS PO Last administered on 03/15/19at 20:24; Admin Dose 40 MG; Start 03/11/19 at 22:00 Carvedilol (Coreg) 3.125 mg BID PO Last administered on 03/16/19 09:47; Admin Dose 3.125 MG; Start 03/11/19 at 22:00 Clopidogrel Bisulfate (plaVIX) 75 mg DAILY PO Last administered on 03/16/19 09:44; Admin Dose 75 MG; Start 03/12/19 at 09:00 Furosemide (Lasix) 40 mg DAILY PO Last administered on 03/16/19 09:45; Admin Dose 40 MG; Start 03/12/19 at 09:00 Lactulose (Enulose) 10 gm Q6 PRN PO CONSTIPATION; Start 03/11/19 at 22:00 Levothyroxine Sodium (Synthroid) 50 mcg BEFORE BREAKFAST PO Last administered on 03/16/19 05:46; Admin Dose 50 MCG; Start 03/12/19 at 07:00 Potassium Chloride (Klor-Con 10) 10 meq DAILY PO Last administered on 03/16/19 09:45; Admin Dose 10 MEQ; Start 03/12/19 at 09:00 Tramadol HCl (Ultram) 50 mg TID PO Last administered on 03/16/19 13:11; Admin Dose 50 MG; Start 03/11/19 at 22:00 Docusate Sodium (Colace) 100 mg BID PO Last administered on 03/16/19 09:44; Admin Dose 100 MG; Start 03/12/19 at 09:00 Senna (Senokot) 1 tab QHS PO Last administered on 03/14/19 21:28; Admin Dose 1 TAB; Start 03/12/19 at 21:00 Acetaminophen (Tylenol Tab) 650 mg Q4H PRN PO MILD PAIN(1-3)OR ELEVATED TEMP; Start 03/11/19 at 22:30 Bisacodyl (Dulcolax Supp) 10 mg DAILY PRN [place] CONSTIPATION; Start 03/11/19 at 22:30 Magnesium Hydroxide (Milk Of Mag) 30 ml BID PRN PO CONSTIPATION; Start 03/11/19 at 22:30 Diclofenac Sodium (Voltaren 1% Gel) 4 gm QID TP Last administered on 03/16/19 13:14; Admin Dose 4 GM; Start 03/13/19 at 13:00 Polyethylene Glycol (Miralax) 17 gm DAILY PO Last administered on 03/16/19at 09:44; Admin Dose 17 GM; Start 03/15/19 at 09:00 Sodium Biphosphate/ Sodium Phosphate (Fleet Enema) 133 ml DAILY PRN [place] CONSTIPATION; Start 03/16/19 at 08:30 PALMIRA MISHRA March 16, 2019 13:49
[2019-03-16 14:00] VITALS: BP 95/60; PULSE 87; RESP 18
[2019-03-16] MEDS: SPIRONOLACTONE 25 MG TAB PO SCH (14:00)
--- NOTE | 2019-03-16 14:07 | PN ---
Date/Time of Note Date/Time of Note DATE: 03/16/19 TIME: 14:06 Subjective He is happy about his new room Objective Vital Signs Date Temp Pulse Resp B/P (MAP) Pulse Ox O2 O2 Flow FiO2 Time Delivery Rate 03/16/19 97.8 87 18 109/65 97 Room Air 07:00 (80) Intake and Output 03/15/19 03/15/19 03/16/19 1515:00 23:00 07:00 IntakeIntake Total 1430 ml 540 ml 750 ml OutputOutput Total 300 ml 1150 ml 600 ml BalanceBalance 1130 ml -610 ml 150 ml Exam pulm-cta mod transfer Results/Medications Result Diagram: 03/14/1973903/14/19739 Medications Current Medications Aspirin (Aspirin) 81 mg DAILY PO Last administered on 03/16/19 09:45; Admin Dose 81 MG; Start 03/12/19 at 09:00 Atorvastatin Calcium (Lipitor) 40 mg HS PO Last administered on 03/15/19 20:24; Admin Dose 40 MG; Start 03/11/19 at 22:00 Carvedilol (Coreg) 3.125 mg BID PO Last administered on 03/16/19 09:47; Admin Dose 3.125 MG; Start 03/11/19 at 22:00 Clopidogrel Bisulfate (plaVIX) 75 mg DAILY PO Last administered on 03/16/19 09:44; Admin Dose 75 MG; Start 03/12/19 at 09:00 Furosemide (Lasix) 40 mg DAILY PO Last administered on 03/16/19 09:45; Admin Dose 40 MG; Start 03/12/19 at 09:00 Lactulose (Enulose) 10 gm Q6 PRN PO CONSTIPATION; Start 03/11/19 at 22:00 Levothyroxine Sodium (Synthroid) 50 mcg BEFORE BREAKFAST PO Last administered on 03/16/19 05:46; Admin Dose 50 MCG; Start 03/12/19 at 07:00 Potassium Chloride (Klor-Con 10) 10 meq DAILY PO Last administered on 03/16/19 09:45; Admin Dose 10 MEQ; Start 03/12/19 at 09:00 Tramadol HCl (Ultram) 50 mg TID PO Last administered on 03/16/19 13:11; Admin Dose 50 MG; Start 03/11/19 at 22:00 Docusate Sodium (Colace) 100 mg BID PO Last administered on 03/16/19at 09:44; Admin Dose 100 MG; Start 03/12/19 at 09:00 Senna (Senokot) 1 tab QHS PO Last administered on 03/14/19at 21:28; Admin Dose 1 TAB; Start 03/12/19 at 21:00 Acetaminophen (Tylenol Tab) 650 mg Q4H PRN PO MILD PAIN(1-3)OR ELEVATED TEMP; Start 03/11/19 at 22:30 Bisacodyl (Dulcolax Supp) 10 mg DAILY PRN [place] CONSTIPATION; Start 03/11/19 at 22:30 Magnesium Hydroxide (Milk Of Mag) 30 ml BID PRN PO CONSTIPATION; Start 03/11/19 at 22:30 Diclofenac Sodium (Voltaren 1% Gel) 4 gm QID TP Last administered on 03/16/19at 13:14; Admin Dose 4 GM; Start 03/13/19 at 13:00 Polyethylene Glycol (Miralax) 17 gm DAILY PO Last administered on 03/16/19at 09:44; Admin Dose 17 GM; Start 03/15/19 at 09:00 Sodium Biphosphate/ Sodium Phosphate (Fleet Enema) 133 ml DAILY PRN [place] CONSTIPATION; Start 03/16/19 at 08:30 Spironolactone (Aldactone) 25 mg DAILY@0600 PO ; Start 03/16/19 at 14:00 Assessment/Plan Additional Assessment/Plan rehab- Cardiac debility status post ST elevation myocardial infarction, cardiomyopathy. Continue rehab, progressing with treatment plan Anemia. Hypertension. Hyperlipidemia. Hypothyroidism. Scrotal hernia. Venous stasis changes. Severe osteoarthritis affecting bilateral knees. FARHAD SANTANA MD March 16, 2019 14:07
[2019-03-16 20:00] VITALS: BP 113/71; PULSE 93; RESP 18
[2019-03-16] MEDS: SENNA TAB PO SCH (20:43)
[2019-03-16] MEDS: ATORVASTATIN 40 MG TAB PO SCH (20:43)
[2019-03-17 02:00] VITALS: BP 101/63; PULSE 90; RESP 18
[2019-03-17] MEDS: SPIRONOLACTONE 25 MG TAB PO SCH (06:12)
[2019-03-17] MEDS: LEVOTHYROXINE 50 MCG TAB PO SCH (06:12)
[2019-03-17 07:30] VITALS: BP 108/58; PULSE 93; RESP 20
--- NOTE | 2019-03-17 08:21 | PN ---
Date/Time of Note Date/Time of Note DATE: 03/17/19 TIME: 08:20 Subjective reports some difficulty sleeping last night Objective Vital Signs Date Temp Pulse Resp B/P (MAP) Pulse Ox O2 O2 Flow FiO2 Time Delivery Rate 03/17/19 98.0 90 18 101/63 98 Room Air 02:00 (76) Intake and Output 03/16/19 03/16/19 03/17/19 1515:00 23:00 07:00 IntakeIntake Total 1100 ml 250 ml OutputOutput Total 600 ml 710 ml BalanceBalance 500 ml -460 ml Exam pulm-cta mod transfer Results/Medications Result Diagram: 03/17/19 0640 03/17/19 0640 Results 24 hrs Laboratory Tests Test 03/17/19 06:40 White Blood Count 6.8 Red Blood Count 3.97 L Hemoglobin 10.9 L Hematocrit 33.2 L Mean Corpuscular Volume 83.6 Mean Corpuscular Hemoglobin 27.5 L Mean Corpuscular Hemoglobin Concent 32.8 Red Cell Distribution Width 13.5 Platelet Count 267 Mean Platelet Volume 10.2 Immature Granulocytes % 0.300 Neutrophils % 68.7 Lymphocytes % 16.3 Monocytes % 10.3 Eosinophils % 4.0 Basophils % 0.4 Nucleated Red Blood Cells % 0.0 Immature Granulocytes # 0.020 Neutrophils # 4.7 Lymphocytes # 1.1 Monocytes # 0.7 Eosinophils # 0.3 Basophils # 0.0 Nucleated Red Blood Cells # 0.0 Sodium Level 134 L Potassium Level 4.0 Chloride Level 99 Carbon Dioxide Level 32 H Anion Gap 3 L Blood Urea Nitrogen 20 Creatinine 0.92 Est Glomerular Filtrat Rate mL/min Glucose Level 97 Calcium Level 9.4 Phosphorus Level 3.4 Magnesium Level 2.1 Medications Current Medications Aspirin (Aspirin) 81 mg DAILY PO Last administered on 03/16/19at 09:45; Admin Dose 81 MG; Start 03/12/19 at 09:00 Atorvastatin Calcium (Lipitor) 40 mg HS PO Last administered on 03/16/19at 20:43; Admin Dose 40 MG; Start 03/11/19 at 22:00 Carvedilol (Coreg) 3.125 mg BID PO Last administered on 03/16/19at 20:43; Admin Dose 3.125 MG; Start 03/11/19 at 22:00 Clopidogrel Bisulfate (plaVIX) 75 mg DAILY PO Last administered on 03/16/19 09:44; Admin Dose 75 MG; Start 03/12/19 at 09:00 Furosemide (Lasix) 40 mg DAILY PO Last administered on 03/16/19 09:45; Admin Dose 40 MG; Start 03/12/19 at 09:00 Lactulose (Enulose) 10 gm Q6 PRN PO CONSTIPATION; Start 03/11/19 at 22:00 Levothyroxine Sodium (Synthroid) 50 mcg BEFORE BREAKFAST PO Last administered on 03/17/19 06:12; Admin Dose 50 MCG; Start 03/12/19 at 07:00 Potassium Chloride (Klor-Con 10) 10 meq DAILY PO Last administered on 03/16/19 09:45; Admin Dose 10 MEQ; Start 03/12/19 at 09:00 Tramadol HCl (Ultram) 50 mg TID PO Last administered on 03/16/19 20:44; Admin Dose 50 MG; Start 03/11/19 at 22:00 Docusate Sodium (Colace) 100 mg BID PO Last administered on 03/16/19 20:42; Admin Dose 100 MG; Start 03/12/19 at 09:00 Senna (Senokot) 1 tab QHS PO Last administered on 03/16/19 20:43; Admin Dose 1 TAB; Start 03/12/19 at 21:00 Acetaminophen (Tylenol Tab) 650 mg Q4H PRN PO MILD PAIN(1-3)OR ELEVATED TEMP; Start 03/11/19 at 22:30 Bisacodyl (Dulcolax Supp) 10 mg DAILY PRN [place] CONSTIPATION; Start 03/11/19 at 22:30 Magnesium Hydroxide (Milk Of Mag) 30 ml BID PRN PO CONSTIPATION; Start 03/11/19 at 22:30 Diclofenac Sodium (Voltaren 1% Gel) 4 gm QID TP Last administered on 03/16/19 20:44; Admin Dose 4 GM; Start 03/13/19 at 13:00 Polyethylene Glycol (Miralax) 17 gm DAILY PO Last administered on 03/16/19 09:44; Admin Dose 17 GM; Start 03/15/19 at 09:00 Sodium Biphosphate/ Sodium Phosphate (Fleet Enema) 133 ml DAILY PRN [place] CONSTIPATION; Start 03/16/19 at 08:30 Spironolactone (Aldactone) 25 mg DAILY@0600 PO Last administered on 03/17/19at 06:12; Admin Dose 25 MG; Start 03/16/19 at 14:00 Assessment/Plan Additional Assessment/Plan rehab- Cardiac debility status post ST elevation myocardial infarction, cardiomyopathy. Continue rehab treatment plan Anemia. Hypertension. Hyperlipidemia. Hypothyroidism. Scrotal hernia. Venous stasis changes. Severe osteoarthritis affecting bilateral knees. FARHAD SANTANA MD March 17, 2019 08:21
[2019-03-17] MEDS: DOCUSATE SODIUM 100 MG CAP PO SCH ×2 (09:02→20:34)
[2019-03-17] MEDS: POLYETHYLENE GLYCOL 17 GM PACKET PO SCH (09:02)
[2019-03-17] MEDS: POTASSIUM CHLORIDE (SR) 10 MEQ TAB PO SCH (09:03)
[2019-03-17] MEDS: ASPIRIN 81 MG TAB PO SCH (09:03)
[2019-03-17] MEDS: FUROSEMIDE 40 MG TAB PO SCH (09:04)
[2019-03-17] MEDS: traMADol 50 MG TAB PO SCH ×3 (09:04→20:34)
[2019-03-17] MEDS: CLOPIDOGREL 75 MG TAB PO SCH (09:04)
[2019-03-17] MEDS: DICLOFENAC SODIUM 1% GEL 100 GM TUBE TP SCH ×4 (09:05→20:36)
--- NOTE | 2019-03-17 10:40 | PN ---
DATE: 03/17/2019 SUBJECTIVE: The patient is stable, no events overnight. The patient did have an episode of shortnes s of breath overnight, since resolved. OBJECTIVE: VITAL SIGNS: Blood pressure is 101/63, respiration 18, pulse 90, temperature 98.0. HEENT: Head is normocephalic. NECK: Supple. HEART: Regular rate. LUNGS: Show diminished breath sounds at base. ABDOMEN: Soft, nontender to palpation without rebound or guarding. EXTREMITIES: Negative for clubbing, cyanosis. Trace edema. DERMATOLOGIC: No rashes. MUSCULOSKELETAL: No joint effusion. NEUROLOGIC: No change in exam. MEDICATIONS: Have been reviewed. LABORATORY DATA: Has been reviewed. ASSESSMENT AND PLAN: 1. Coronary artery disease, status post percutaneous coronary intervention. Continue current medica l management. Continue aspirin, Plavix, Lipitor. 2. Ischemic cardiomyopathy. Continue current treatment plan. Patient remains on diuretic therapy. 3. Anemia. Monitor hemoglobin and hematocrit levels. 4. Dyslipidemia, continue statin therapy. 5. Hypothyroidism. Continue Synthroid. 6. Sleep apnea. The patient will be placed on CPAP. 7. Sinus arrhythmia. The patient is being fitted for possible LifeVest. 8. Constipation, improved. Continue current bowel regimen. Dictated By: STEPHEN MANRIQUE DO NR/NTS Conf#: [id number] DID#: [id number] CC: FARHAD SANTANA MD;*EndCC*
[2019-03-17 20:00] VITALS: BP 93/57; PULSE 95; RESP 18
[2019-03-17] MEDS: SENNA TAB PO SCH (20:34)
[2019-03-17] MEDS: ATORVASTATIN 40 MG TAB PO SCH (20:34)
[2019-03-17 21:48] VITALS: PULSE 103
[2019-03-18 02:30] VITALS: BP 111/67; PULSE 84; RESP 18
[2019-03-18] MEDS: SPIRONOLACTONE 25 MG TAB PO SCH (06:04)
[2019-03-18] MEDS: LEVOTHYROXINE 50 MCG TAB PO SCH (06:06)
[2019-03-18 08:30] VITALS: BP 122/72; PULSE 78; RESP 19
[2019-03-18] MEDS: ASPIRIN 81 MG TAB PO SCH (08:34)
[2019-03-18] MEDS: POTASSIUM CHLORIDE (SR) 10 MEQ TAB PO SCH (08:34)
[2019-03-18] MEDS: CLOPIDOGREL 75 MG TAB PO SCH (08:34)
[2019-03-18] MEDS: FUROSEMIDE 40 MG TAB PO SCH (08:35)
[2019-03-18] MEDS: DOCUSATE SODIUM 100 MG CAP PO SCH ×2 (08:35→21:00)
[2019-03-18] MEDS: traMADol 50 MG TAB PO SCH ×3 (08:35→21:11)
[2019-03-18] MEDS: POLYETHYLENE GLYCOL 17 GM PACKET PO SCH (08:35)
[2019-03-18] MEDS: DICLOFENAC SODIUM 1% GEL 100 GM TUBE TP SCH ×4 (08:40→21:00)
--- NOTE | 2019-03-18 12:25 | CONS ---
Assessment/Plan Assessment/Plan Hospital Course (Demo Recall) Chronic systolic CHF: euvolemic Anterior STEMI: s/p PCI of prox-mid culprit LAD and mid LAD into diag 2. Doing very well CAD: as above. Residual ostial and prox diag 2 disease will be managed medically Ischemic cardiomyopathy: EF 30-35%. Discussed LifeVest with pt, agreeable. Rep has already seen him -continue aldactone 25mg daily. Check renal function/K in 1-2 days -lasix 40mg PO daily with KCL -ASA 81mg lifelong -plavix 75mg dialy x 1 year -lipitor -coreg 3.125mng BID as tolerated -ACEI/ARB if BP tolerates Consultation Date/Type/Reason Admit Date/Time March 11, 2019 at 19:40 Initial Consult Date Type of Consult Cardiology Date/Time of Note DATE: 03/18/19 TIME: 12:23 24 HR Interval Summary Free Text/Dictation No acute events. Complaining of some shortness of breath. Detailed Summary Additional Comments 14 point review of systems without changes. Exam/Review of Systems Vital Signs Vitals Vital Signs Date Temp Pulse Resp B/P (MAP) Pulse Ox O2 O2 Flow FiO2 Time Delivery Rate 03/18/19 97.2 78 19 122/72 99 Room Air 08:30 (89) 03/17/19 30 21:48 Intake and Output 03/17/19 03/17/19 03/18/19 1515:00 23:00 07:00 OutputOutput Total 200 ml 250 ml BalanceBalance -200 ml -250 ml Exam Exam Constitutional: alert, oriented Psych: no complaints, nl mood/affect Head: normocephalic, atraumatic Neck: No jvd Respiratory: diminished breath sounds; No clear to auscultation Cardiovascular: regular rate and rhythm, edema (trace-1+) Gastrointestinal: soft, non-tender; No distended Neurological: nl mental status, nl speech Labs Result Diagram: 03/17/1940 03/17/19639 Medications Medications Current Medications Aspirin (Aspirin) 81 mg DAILY PO Last administered on 03/18/19at 08:34; Admin Dose 81 MG; Start 03/12/19 at 09:00 Atorvastatin Calcium (Lipitor) 40 mg HS PO Last administered on 03/17/19at 20:34; Admin Dose 40 MG; Start 03/11/19 at 22:00 Carvedilol (Coreg) 3.125 mg BID PO Last administered on 03/18/19 08:34; Admin Dose 3.125 MG; Start 03/11/19 at 22:00 Clopidogrel Bisulfate (plaVIX) 75 mg DAILY PO Last administered on 03/18/19 08:34; Admin Dose 75 MG; Start 03/12/19 at 09:00 Furosemide (Lasix) 40 mg DAILY PO Last administered on 03/18/19 08:35; Admin Dose 40 MG; Start 03/12/19 at 09:00 Lactulose (Enulose) 10 gm Q6 PRN PO CONSTIPATION; Start 03/11/19 at 22:00 Levothyroxine Sodium (Synthroid) 50 mcg BEFORE BREAKFAST PO Last administered on 03/18/19 06:06; Admin Dose 50 MCG; Start 03/12/19 at 07:00 Potassium Chloride (Klor-Con 10) 10 meq DAILY PO Last administered on 03/18/19 08:34; Admin Dose 10 MEQ; Start 03/12/19 at 09:00 Tramadol HCl (Ultram) 50 mg TID PO Last administered on 03/18/19 12:02; Admin Dose 50 MG; Start 03/11/19 at 22:00 Docusate Sodium (Colace) 100 mg BID PO Last administered on 03/18/19 08:35; Admin Dose 100 MG; Start 03/12/19 at 09:00 Senna (Senokot) 1 tab QHS PO Last administered on 03/17/19at 20:34; Admin Dose 1 TAB; Start 03/12/19 at 21:00 Acetaminophen (Tylenol Tab) 650 mg Q4H PRN PO MILD PAIN(1-3)OR ELEVATED TEMP; Start 03/11/19 at 22:30 Bisacodyl (Dulcolax Supp) 10 mg DAILY PRN [place] CONSTIPATION; Start 03/11/19 at 22:30 Magnesium Hydroxide (Milk Of Mag) 30 ml BID PRN PO CONSTIPATION; Start 03/11/19 at 22:30 Diclofenac Sodium (Voltaren 1% Gel) 4 gm QID TP Last administered on 03/18/19 12:03; Admin Dose 4 GM; Start 03/13/19 at 13:00 Polyethylene Glycol (Miralax) 17 gm DAILY PO Last administered on 03/18/19at 08:35; Admin Dose 17 GM; Start 03/15/19 at 09:00 Sodium Biphosphate/ Sodium Phosphate (Fleet Enema) 133 ml DAILY PRN [place] CONSTIPATION; Start 03/16/19 at 08:30 Spironolactone (Aldactone) 25 mg DAILY@0600 PO Last administered on 03/18/19at 06:04; Admin Dose 25 MG; Start 03/16/19 at 14:00 VERNON PRATT MD March 18, 2019 12:25
--- NOTE | 2019-03-18 13:31 | PN ---
DATE: 03/18/2019 SUBJECTIVE: The patient is stable. No events overnight. No fevers, chills, nausea, vomiting. OBJECTIVE: VITAL SIGNS: Blood pressure is 111/67, pulse 103, respirations 20, temperature 98.3. HEENT: Head is normocephalic. NECK: Supple. HEART: Regular rate. LUNGS: Show diminished breath sounds at the base. ABDOMEN: Soft, nontender to palpation without rebound or guarding. EXTREMITIES: Negative for clubbing, cyanosis, no edema. DERMATOLOGIC: No rashes. MUSCULOSKELETAL: No joint effusion. NEUROLOGIC: No change in exam. MEDICATIONS: The patient's medications have been reviewed. LABORATORY DATA: Has been reviewed. ASSESSMENT AND PLAN: 1. Coronary artery disease, status post percutaneous coronary intervention. Continue medical manage ment. Continue aspirin, Plavix, Lipitor. 2. Ischemic cardiomyopathy. Continue current treatment plan. The patient is on diuretic therapy. We will consider adding metolazone to augment diuresis. 3. Anemia. Monitor hemoglobin and hematocrit levels. 4. Dyslipidemia. Continue statin therapy. 5. Hypothyroidism. Continue Synthroid. 6. Sleep apnea. Continue CPAP as tolerated. 7. Arrhythmia. The patient is being fitted for possible Lifevest. 8. Constipation. Continue current bowel regimen. Dictated By: STEPHEN MANRIQUE DO NR/NTS Conf#: [id number] DID#: [id number] CC: FARHAD SANTANA MD;*EndCC*
[2019-03-18 20:00] VITALS: BP 101/58; PULSE 87; RESP 18
[2019-03-18] MEDS: SENNA TAB PO SCH (21:00)
[2019-03-18] MEDS: ATORVASTATIN 40 MG TAB PO SCH (21:11)
[2019-03-19 02:00] VITALS: BP 115/61; PULSE 89; RESP 18
[2019-03-19] MEDS: SPIRONOLACTONE 25 MG TAB PO SCH (06:09)
[2019-03-19] MEDS: LEVOTHYROXINE 50 MCG TAB PO SCH (06:09)
[2019-03-19 08:00] VITALS: BP 125/65; PULSE 78; RESP 18
[2019-03-19] MEDS: ASPIRIN 81 MG TAB PO SCH (09:02)
[2019-03-19] MEDS: traMADol 50 MG TAB PO SCH ×3 (09:03→21:13)
[2019-03-19] MEDS: FUROSEMIDE 40 MG TAB PO SCH (09:03)
[2019-03-19] MEDS: DOCUSATE SODIUM 100 MG CAP PO SCH ×2 (09:04→21:13)
[2019-03-19] MEDS: POLYETHYLENE GLYCOL 17 GM PACKET PO SCH (09:04)
[2019-03-19] MEDS: POTASSIUM CHLORIDE (SR) 10 MEQ TAB PO SCH (09:04)
[2019-03-19] MEDS: DICLOFENAC SODIUM 1% GEL 100 GM TUBE TP SCH ×4 (09:05→21:13)
[2019-03-19] MEDS: CLOPIDOGREL 75 MG TAB PO SCH (09:08)
--- NOTE | 2019-03-19 09:19 | CONS ---
Assessment/Plan Assessment/Plan Hospital Course (Demo Recall) Chronic systolic CHF: euvolemic Anterior STEMI: s/p PCI of prox-mid culprit LAD and mid LAD into diag 2. Doing very well CAD: as above. Residual ostial and prox diag 2 disease will be managed medically Ischemic cardiomyopathy: EF 30-35%. Discussed LifeVest with pt, agreeable. Rep has already seen him -aldactone 25mg daily -lasix 40mg PO daily with KCL -ASA 81mg lifelong -plavix 75mg dialy x 1 year -lipitor -coreg 3.125mng BID as tolerated -ACEI/ARB if BP tolerates (has been getting coreg intermittently so likely will not tolerate just yet) Consultation Date/Type/Reason Admit Date/Time March 11, 2019 at 19:40 Initial Consult Date Type of Consult Cardiology Date/Time of Note DATE: 03/19/19 TIME: 09:18 24 HR Interval Summary Free Text/Dictation No events. Doing well with PT Exam/Review of Systems Vital Signs Vitals Vital Signs Date Temp Pulse Resp B/P (MAP) Pulse Ox O2 O2 Flow FiO2 Time Delivery Rate 03/19/19 98.6 78 18 125/65 99 Room Air 08:00 (85) 03/17/19 30 21:48 Intake and Output 03/18/19 03/18/19 03/19/19 1414:59 22:59 06:59 IntakeIntake Total 400 ml OutputOutput Total 730 ml 100 ml BalanceBalance -330 ml -100 ml Exam Constitutional: alert, oriented Psych: no complaints, nl mood/affect Neck: No jvd Respiratory: diminished breath sounds; No clear to auscultation Cardiovascular: regular rate and rhythm, edema (trace) Gastrointestinal: soft, non-tender; No distended Neurological: nl mental status, nl speech Labs Result Diagram: 03/17/1963903/17/19639 Medications Medications Current Medications Aspirin (Aspirin) 81 mg DAILY PO Last administered on 03/19/19at 09:02; Admin Dose 81 MG; Start 03/12/19 at 09:00 Atorvastatin Calcium (Lipitor) 40 mg HS PO Last administered on 03/18/19at 21:11; Admin Dose 40 MG; Start 03/11/19 at 22:00 Carvedilol (Coreg) 3.125 mg BID PO Last administered on 03/19/19 09:02; Admin Dose 3.125 MG; Start 03/11/19 at 22:00 Clopidogrel Bisulfate (plaVIX) 75 mg DAILY PO Last administered on 03/19/19 09:08; Admin Dose 75 MG; Start 03/12/19 at 09:00 Furosemide (Lasix) 40 mg DAILY PO Last administered on 03/19/19 09:03; Admin Dose 40 MG; Start 03/12/19 at 09:00 Lactulose (Enulose) 10 gm Q6 PRN PO CONSTIPATION; Start 03/11/19 at 22:00 Levothyroxine Sodium (Synthroid) 50 mcg BEFORE BREAKFAST PO Last administered on 03/19/19 06:09; Admin Dose 50 MCG; Start 03/12/19 at 07:00 Potassium Chloride (Klor-Con 10) 10 meq DAILY PO Last administered on 03/19/19 09:04; Admin Dose 10 MEQ; Start 03/12/19 at 09:00 Tramadol HCl (Ultram) 50 mg TID PO Last administered on 03/19/19 09:03; Admin Dose 50 MG; Start 03/11/19 at 22:00 Docusate Sodium (Colace) 100 mg BID PO Last administered on 03/19/19 09:04; Admin Dose 100 MG; Start 03/12/19 at 09:00 Senna (Senokot) 1 tab QHS PO Last administered on 03/17/19 20:34; Admin Dose 1 TAB; Start 03/12/19 at 21:00 Acetaminophen (Tylenol Tab) 650 mg Q4H PRN PO MILD PAIN(1-3)OR ELEVATED TEMP; Start 03/11/19 at 22:30 Bisacodyl (Dulcolax Supp) 10 mg DAILY PRN [place] CONSTIPATION; Start 03/11/19 at 22:30 Magnesium Hydroxide (Milk Of Mag) 30 ml BID PRN PO CONSTIPATION; Start 03/11/19 at 22:30 Diclofenac Sodium (Voltaren 1% Gel) 4 gm QID TP Last administered on 03/19/19 09:05; Admin Dose 4 GM; Start 03/13/19 at 13:00 Polyethylene Glycol (Miralax) 17 gm DAILY PO Last administered on 03/19/19 09:04; Admin Dose 17 GM; Start 03/15/19 at 09:00 Sodium Biphosphate/ Sodium Phosphate (Fleet Enema) 133 ml DAILY PRN [place] CONSTIPATION; Start 03/16/19 at 08:30 Spironolactone (Aldactone) 25 mg DAILY@0600 PO Last administered on 03/19/19at 06:09; Admin Dose 25 MG; Start 03/16/19 at 14:00 PALMIRA MISHRA March 19, 2019 09:19
--- NOTE | 2019-03-19 10:24 | PN ---
DATE: 03/19/2019 SUBJECTIVE: The patient is stable. No events overnight. OBJECTIVE: VITAL SIGNS: Blood pressure is 125/65, pulse 75, respirations 18, temperature 98.6. HEENT: Head is normocephalic. NECK: Supple. HEART: Regular rate. LUNGS: Show diminished breath sounds at the base. ABDOMEN: Soft, nontender to palpation without rebound or guarding. EXTREMITIES: Negative for clubbing, cyanosis. Trace edema. DERMATOLOGIC: No rashes. MUSCULOSKELETAL: No joint effusion. NEUROLOGIC: No change in exam. MEDICATIONS: The patient's medications have been reviewed. LABORATORY DATA: Reviewed. ASSESSMENT AND PLAN: 1. Coronary artery disease status post percutaneous coronary intervention. Continue current medical management. Continue aspirin, Plavix and Lipitor. 2. Ischemic heart cardiomyopathy. The patient appears stable. Continue current medical management. Current diuretic regimen. 3. Anemia. Monitor hemoglobin and hematocrit levels. 4. Dyslipidemia. Continue statin therapy. 5. Hypothyroidism. Continue Synthroid. 6. Sleep apnea. Continue CPAP. 7. Arrhythmia. The patient has been fitted for a LifeVest. Followup with Cardiology. 8. Constipation. Continue current bowel regimen. Dictated By: STEPHEN MANRIQUE DO NR/NTS Conf#: [id number] DID#: [id number] CC: FARHAD SANTANA MD; STEPHEN MANRIQUE DO;*EndCC*
--- NOTE | 2019-03-19 12:14 | PN ---
Date/Time of Note Date/Time of Note DATE: 03/19/19 TIME: 12:14 Objective Vital Signs Date Temp Pulse Resp B/P (MAP) Pulse Ox O2 O2 Flow FiO2 Time Delivery Rate 03/19/19 98.6 78 18 125/65 99 Room Air 08:00 (85) 03/17/19 30 21:48 Intake and Output 03/18/19 03/18/19 03/19/19 1515:00 23:00 07:00 IntakeIntake Total 400 ml OutputOutput Total 730 ml 100 ml BalanceBalance -330 ml -100 ml Exam INTERDISCIPLINARY TEAM CONFERENCE Attended by PT, OT, ST, Pharmacy Coordinator, Social Work, Rehabilitation Nursing, Pole Framer Machine and Substation Operator TransformingAutomotive Professional Exam: Pulm- cta Abd-soft BOWEL- Cont BLADDER-Cont SKIN- improving OT- DRESSING-min Upper Body/max lower Body BATHING-min Upper Body/max lower Body TOILETING- mod/max PT- BED MOBILITY-mod TRANSFERS-mod AMBULATION-mod 3 feet A/P- Interdisciplinary team conference held today. Please see interdisciplinary sheet. Working toward d.c. on 03/26 with post discharge follow up of physical therapy, occupational therapy. Results/Medications Result Diagram: 03/17/1940 03/17/19639 Medications Current Medications Aspirin (Aspirin) 81 mg DAILY PO Last administered on 03/19/19at 09:02; Admin Dose 81 MG; Start 03/12/19 at 09:00 Atorvastatin Calcium (Lipitor) 40 mg HS PO Last administered on 03/18/19at 21:11; Admin Dose 40 MG; Start 03/11/19 at 22:00 Carvedilol (Coreg) 3.125 mg BID PO Last administered on 03/19/19at 09:02; Admin Dose 3.125 MG; Start 03/11/19 at 22:00 Clopidogrel Bisulfate (plaVIX) 75 mg DAILY PO Last administered on 03/19/19at 09:08; Admin Dose 75 MG; Start 03/12/19 at 09:00 Furosemide (Lasix) 40 mg DAILY PO Last administered on 03/19/19at 09:03; Admin Dose 40 MG; Start 03/12/19 at 09:00 Lactulose (Enulose) 10 gm Q6 PRN PO CONSTIPATION; Start 03/11/19 at 22:00 Levothyroxine Sodium (Synthroid) 50 mcg BEFORE BREAKFAST PO Last administered on 03/19/19 06:09; Admin Dose 50 MCG; Start 03/12/19 at 07:00 Potassium Chloride (Klor-Con 10) 10 meq DAILY PO Last administered on 03/19/19 09:04; Admin Dose 10 MEQ; Start 03/12/19 at 09:00 Tramadol HCl (Ultram) 50 mg TID PO Last administered on 03/19/19 09:03; Admin Dose 50 MG; Start 03/11/19 at 22:00 Docusate Sodium (Colace) 100 mg BID PO Last administered on 03/19/19 09:04; Admin Dose 100 MG; Start 03/12/19 at 09:00 Senna (Senokot) 1 tab QHS PO Last administered on 03/17/19 20:34; Admin Dose 1 TAB; Start 03/12/19 at 21:00 Acetaminophen (Tylenol Tab) 650 mg Q4H PRN PO MILD PAIN(1-3)OR ELEVATED TEMP; Start 03/11/19 at 22:30 Bisacodyl (Dulcolax Supp) 10 mg DAILY PRN [place] CONSTIPATION; Start 03/11/19 at 22:30 Magnesium Hydroxide (Milk Of Mag) 30 ml BID PRN PO CONSTIPATION; Start 03/11/19 at 22:30 Diclofenac Sodium (Voltaren 1% Gel) 4 gm QID TP Last administered on 03/19/19 09:05; Admin Dose 4 GM; Start 03/13/19 at 13:00 Polyethylene Glycol (Miralax) 17 gm DAILY PO Last administered on 03/19/19 09:04; Admin Dose 17 GM; Start 03/15/19 at 09:00 Sodium Biphosphate/ Sodium Phosphate (Fleet Enema) 133 ml DAILY PRN [place] CONSTIPATION; Start 03/16/19 at 08:30 Spironolactone (Aldactone) 25 mg DAILY@0600 PO Last administered on 03/19/19 06:09; Admin Dose 25 MG; Start 03/16/19 at 14:00 FARHAD SANTANA MD March 19, 2019 12:14
[2019-03-19 14:00] VITALS: BP 124/64; PULSE 7; RESP 18
[2019-03-19] MEDS: SENNA TAB PO SCH (21:13)
[2019-03-19] MEDS: ATORVASTATIN 40 MG TAB PO SCH (21:13)
[2019-03-20] MEDS: LEVOTHYROXINE 50 MCG TAB PO SCH (06:41)
[2019-03-20] MEDS: SPIRONOLACTONE 25 MG TAB PO SCH (06:41)
--- NOTE | 2019-03-20 08:19 | PN ---
Date/Time of Note Date/Time of Note DATE: 03/20/19 TIME: 08:19 Subjective Comfortable Objective Vital Signs Date Temp Pulse Resp B/P (MAP) Pulse Ox O2 O2 Flow FiO2 Time Delivery Rate 03/19/19 98.5 7 18 124/64 99 Room Air 14:00 (84) 03/17/19 30 21:48 Intake and Output 03/19/19 03/19/19 03/20/19 1414:59 22:59 06:59 IntakeIntake Total 600 ml 400 ml OutputOutput Total 700 ml 1000 ml BalanceBalance -100 ml -600 ml Exam pulm-cta abd-soft mod assist Results/Medications Result Diagram: 03/17/1963903/17/19639 Medications Current Medications Aspirin (Aspirin) 81 mg DAILY PO Last administered on 03/19/19 09:02; Admin Dose 81 MG; Start 03/12/19 at 09:00 Atorvastatin Calcium (Lipitor) 40 mg HS PO Last administered on 03/19/19 21:13; Admin Dose 40 MG; Start 03/11/19 at 22:00 Carvedilol (Coreg) 3.125 mg BID PO Last administered on 03/19/19 21:14; Admin Dose 3.125 MG; Start 03/11/19 at 22:00 Clopidogrel Bisulfate (plaVIX) 75 mg DAILY PO Last administered on 03/19/19 09:08; Admin Dose 75 MG; Start 03/12/19 at 09:00 Furosemide (Lasix) 40 mg DAILY PO Last administered on 03/19/19 09:03; Admin Dose 40 MG; Start 03/12/19 at 09:00 Lactulose (Enulose) 10 gm Q6 PRN PO CONSTIPATION; Start 03/11/19 at 22:00 Levothyroxine Sodium (Synthroid) 50 mcg BEFORE BREAKFAST PO Last administered on 03/20/19 06:41; Admin Dose 50 MCG; Start 03/12/19 at 07:00 Potassium Chloride (Klor-Con 10) 10 meq DAILY PO Last administered on 03/19/19 09:04; Admin Dose 10 MEQ; Start 03/12/19 at 09:00 Tramadol HCl (Ultram) 50 mg TID PO Last administered on 03/19/19 21:13; Admin Dose 50 MG; Start 5/12/19 at 22:00 Docusate Sodium (Colace) 100 mg BID PO Last administered on 03/19/19at 21:13; Admin Dose 100 MG; Start 03/12/19 at 09:00 Senna (Senokot) 1 tab QHS PO Last administered on 03/19/19at 21:13; Admin Dose 1 TAB; Start 03/12/19 at 21:00 Acetaminophen (Tylenol Tab) 650 mg Q4H PRN PO MILD PAIN(1-3)OR ELEVATED TEMP; Start 03/11/19 at 22:30 Bisacodyl (Dulcolax Supp) 10 mg DAILY PRN [place] CONSTIPATION; Start 03/11/19 at 22:30 Magnesium Hydroxide (Milk Of Mag) 30 ml BID PRN PO CONSTIPATION; Start 03/11/19 at 22:30 Diclofenac Sodium (Voltaren 1% Gel) 4 gm QID TP Last administered on 03/19/19at 21:13; Admin Dose 4 GM; Start 03/13/19 at 13:00 Polyethylene Glycol (Miralax) 17 gm DAILY PO Last administered on 03/19/19at 09:04; Admin Dose 17 GM; Start 03/15/19 at 09:00 Sodium Biphosphate/ Sodium Phosphate (Fleet Enema) 133 ml DAILY PRN [place] CONSTIPATION; Start 03/16/19 at 08:30 Spironolactone (Aldactone) 25 mg DAILY@0600 PO Last administered on 03/20/19at 06:41; Admin Dose 25 MG; Start 03/16/19 at 14:00 Assessment/Plan Additional Assessment/Plan rehab- Cardiac debility status post ST elevation myocardial infarction, cardiomyopathy. Continue rehab, overall improving Anemia. Hypertension. Hyperlipidemia. Hypothyroidism. Scrotal hernia. Venous stasis changes. Severe osteoarthritis affecting bilateral knees. FARHAD SANTANA MD March 20, 2019 08:19
[2019-03-20] MEDS: POLYETHYLENE GLYCOL 17 GM PACKET PO SCH (08:26)
[2019-03-20] MEDS: ASPIRIN 81 MG TAB PO SCH (08:29)
[2019-03-20] MEDS: CLOPIDOGREL 75 MG TAB PO SCH (08:30)
[2019-03-20] MEDS: traMADol 50 MG TAB PO SCH ×3 (08:31→21:44)
[2019-03-20] MEDS: POTASSIUM CHLORIDE (SR) 10 MEQ TAB PO SCH (08:32)
[2019-03-20] MEDS: DOCUSATE SODIUM 100 MG CAP PO SCH ×2 (08:32→21:45)
[2019-03-20] MEDS: FUROSEMIDE 40 MG TAB PO SCH (08:33)
[2019-03-20] MEDS: DICLOFENAC SODIUM 1% GEL 100 GM TUBE TP SCH ×4 (08:34→21:00)
[2019-03-20 08:42] VITALS: BP 122/58; PULSE 89; RESP 18
--- NOTE | 2019-03-20 09:17 | PN ---
DATE: 03/20/2019 SUBJECTIVE: The patient is stable. No events overnight. No other events noted. OBJECTIVE: VITAL SIGNS: Blood pressure is 124/64, respirations 18, pulse 70, temperature 98.5. HEENT: Head is normocephalic. NECK: Supple. HEART: Regular rate. LUNGS: Show diminished breath sounds at the base. ABDOMEN: Soft, nontender to palpation without rebound or guarding. EXTREMITIES: Negative for clubbing, cyanosis. Trace edema. DERMATOLOGIC: No rashes. MUSCULOSKELETAL: No joint effusion. NEUROLOGIC: No change in exam. MEDICATIONS: Reviewed. LABORATORY DATA: Reviewed. ASSESSMENT AND PLAN: 1. Coronary artery disease, status post percutaneous coronary intervention. Continue medical manage ment. Continue aspirin, Plavix and Lipitor. 2. Ischemic cardiomyopathy. The patient appears compensated. Continue current medical management. 3. Anemia. Monitor hemoglobin and hematocrit levels. 4. Dyslipidemia. Continue statin therapy. 5. Hypothyroidism. Continue Synthroid. 6. Sleep apnea. Continue CPAP as tolerated. 7. Arrhythmia. The patient has been fitted for LifeVest. Follow up with cardiology. 8. Constipation. Continue current bowel regimen. Dictated By: STEPHEN MANRIQUE DO NR/NTS Conf#: [id number] DID#: [id number] CC: FARHAD SANTANA MD; STEPHEN MANRIQUE DO;*EndCC*
[2019-03-20 14:00] VITALS: BP 99/57; PULSE 81; RESP 18
[2019-03-20] MEDS ORDERED: ARTIFICIAL TEARS 15 ML OPH BOTH EYES PRN (17:00)
[2019-03-20 20:00] VITALS: BP 106/60; PULSE 90; RESP 17
[2019-03-20] MEDS: ATORVASTATIN 40 MG TAB PO SCH (21:44)
[2019-03-20] MEDS: SENNA TAB PO SCH (21:44)
[2019-03-21 02:00] VITALS: BP 112/60; PULSE 92; RESP 18
[2019-03-21] MEDS: LEVOTHYROXINE 50 MCG TAB PO SCH (06:40)
[2019-03-21] MEDS: SPIRONOLACTONE 25 MG TAB PO SCH (06:40)
[2019-03-21 08:00] VITALS: BP 114/57; RESP 16
[2019-03-21] MEDS: ASPIRIN 81 MG TAB PO SCH (08:25)
[2019-03-21] MEDS: DOCUSATE SODIUM 100 MG CAP PO SCH ×2 (08:25→21:45)
[2019-03-21] MEDS: FUROSEMIDE 40 MG TAB PO SCH (08:26)
[2019-03-21] MEDS: POTASSIUM CHLORIDE (SR) 10 MEQ TAB PO SCH (08:26)
[2019-03-21] MEDS: traMADol 50 MG TAB PO SCH ×3 (08:27→21:44)
[2019-03-21] MEDS: CLOPIDOGREL 75 MG TAB PO SCH (08:27)
[2019-03-21] MEDS: DICLOFENAC SODIUM 1% GEL 100 GM TUBE TP SCH ×4 (08:27→21:48)
[2019-03-21] MEDS: POLYETHYLENE GLYCOL 17 GM PACKET PO SCH (09:54)
--- NOTE | 2019-03-21 10:09 | PN ---
DATE: 03/21/2019 SUBJECTIVE: The patient is stable. No events overnight. OBJECTIVE: VITAL SIGNS: Blood pressure is 114/57, respirations 16, temperature 97.8. HEENT: Head is normocephalic. NECK: Supple. HEART: Regular rate. LUNGS: Show diminished breath sounds at the base. ABDOMEN: Soft, nontender to palpation without rebound or guarding. EXTREMITIES: Negative for clubbing, cyanosis. Trace edema. DERMATOLOGIC: No rashes. MUSCULOSKELETAL: No joint effusion. NEUROLOGIC: No change in exam. MEDICATIONS: Reviewed. LABORATORY DATA:. Reviewed. ASSESSMENT AND PLAN: 1. Coronary artery disease status post percutaneous coronary intervention. Continue medical managem ent. 2. Ischemic cardiomyopathy. The patient appears compensated. Continue medical management. 3. Anemia. Continue to monitor hemoglobin and hematocrit levels. 4. Dyslipidemia. Continue statin therapy. 5. Hypothyroidism. Continue Synthroid. 6. Sleep apnea. Continue CPAP. 7. Arrhythmia. The patient will be evaluated in an outpatient setting. 8. Constipation, improved. 9. Debility. Continue physical therapy. Dictated By: STEPHEN MANRIQUE DO NR/NTS Conf#: [id number] DID#: [id number] CC: FARHAD SANTANA MD; STEPHEN MANRIQUE DO;*EndCC*
[2019-03-21] MEDS: LISINOPRIL 5 MG TAB PO SCH (11:12)
--- NOTE | 2019-03-21 11:18 | CONS ---
Assessment/Plan Assessment/Plan Hospital Course (Demo Recall) Chronic systolic CHF: euvolemic Anterior STEMI: s/p PCI of prox-mid culprit LAD and mid LAD into diag 2. Doing very well CAD: as above. Residual ostial and prox diag 2 disease will be managed medically Ischemic cardiomyopathy: EF 30-35%. LifeVest delivered but does not want to wear it until after discharge -trial of lisinopril 2.5mg daily as tolerated -aldactone 25mg daily -lasix 40mg PO daily with KCL -ASA 81mg lifelong -plavix 75mg dialy x 1 year -lipitor -coreg 3.125mng BID as tolerated Consultation Date/Type/Reason Admit Date/Time March 11, 2019 at 19:40 Initial Consult Date Type of Consult Cardiology Date/Time of Note DATE: 03/21/19 TIME: 11:16 24 HR Interval Summary Free Text/Dictation No events. BP stable Exam/Review of Systems Vital Signs Vitals Vital Signs Date Temp Pulse Resp B/P (MAP) Pulse Ox O2 O2 Flow FiO2 Time Delivery Rate 03/21/19 97.8 16 114/57 98 Room Air 08:00 (76) 03/21/19 92 02:00 03/17/19 30 21:48 Intake and Output 03/20/19 03/20/19 03/21/19 1515:00 23:00 07:00 IntakeIntake Total 190 ml 600 ml 100 ml OutputOutput Total 500 ml 450 ml 450 ml BalanceBalance -310 ml 150 ml -350 ml Exam Constitutional: alert, oriented Psych: no complaints, nl mood/affect Neck: No jvd Respiratory: diminished breath sounds; No clear to auscultation Cardiovascular: regular rate and rhythm, edema (trace) Gastrointestinal: soft, non-tender; No distended Neurological: nl mental status, nl speech Labs Result Diagram: 03/17/19 0640 03/17/19 0640 Medications Medications Current Medications Aspirin (Aspirin) 81 mg DAILY PO Last administered on 03/21/19at 08:25; Admin Dose 81 MG; Start 03/12/19 at 09:00 Atorvastatin Calcium (Lipitor) 40 mg HS PO Last administered on 03/20/19at 21:44; Admin Dose 40 MG; Start 03/11/19 at 22:00 Carvedilol (Coreg) 3.125 mg BID PO Last administered on 03/21/19 08:26; Admin Dose 3.125 MG; Start 03/11/19 at 22:00 Clopidogrel Bisulfate (plaVIX) 75 mg DAILY PO Last administered on 03/21/19 08:27; Admin Dose 75 MG; Start 03/12/19 at 09:00 Furosemide (Lasix) 40 mg DAILY PO Last administered on 03/21/19 08:26; Admin Dose 40 MG; Start 03/12/19 at 09:00 Lactulose (Enulose) 10 gm Q6 PRN PO CONSTIPATION; Start 03/11/19 at 22:00 Levothyroxine Sodium (Synthroid) 50 mcg BEFORE BREAKFAST PO Last administered on 03/21/19 06:40; Admin Dose 50 MCG; Start 03/12/19 at 07:00 Potassium Chloride (Klor-Con 10) 10 meq DAILY PO Last administered on 03/21/19 08:26; Admin Dose 10 MEQ; Start 03/12/19 at 09:00 Tramadol HCl (Ultram) 50 mg TID PO Last administered on 03/21/19 08:27; Admin Dose 50 MG; Start 03/11/19 at 22:00 Docusate Sodium (Colace) 100 mg BID PO Last administered on 03/21/19 08:25; Admin Dose 100 MG; Start 03/12/19 at 09:00 Senna (Senokot) 1 tab QHS PO Last administered on 03/20/19 21:44; Admin Dose 1 TAB; Start 03/12/19 at 21:00 Acetaminophen (Tylenol Tab) 650 mg Q4H PRN PO MILD PAIN(1-3)OR ELEVATED TEMP; Start 03/11/19 at 22:30 Bisacodyl (Dulcolax Supp) 10 mg DAILY PRN [place] CONSTIPATION; Start 03/11/19 at 22:30 Magnesium Hydroxide (Milk Of Mag) 30 ml BID PRN PO CONSTIPATION; Start 03/11/19 at 22:30 Diclofenac Sodium (Voltaren 1% Gel) 4 gm QID TP Last administered on 03/21/19 08:27; Admin Dose 4 GM; Start 03/13/19 at 13:00 Polyethylene Glycol (Miralax) 17 gm DAILY PO Last administered on 03/21/19 09:54; Admin Dose 17 GM; Start 03/15/19 at 09:00 Sodium Biphosphate/ Sodium Phosphate (Fleet Enema) 133 ml DAILY PRN [place] CONSTIPATION; Start 03/16/19 at 08:30 Spironolactone (Aldactone) 25 mg DAILY@0600 PO Last administered on 03/21/19at 06:40; Admin Dose 25 MG; Start 03/16/19 at 14:00 Eye Lubricant (Artificial Tears Oph) 2 drop Q6H PRN BOTH EYES DRY EYES; Start 03/20/19 at 17:00 Lisinopril (Zestril) 2.5 mg DAILY PO Last administered on 03/21/19at 11:12; Admin Dose 2.5 MG; Start 03/21/19 at 10:30 PALMIRA MISHRA March 21, 2019 11:18
[2019-03-21 14:00] VITALS: BP 93/54; PULSE 85; RESP 18
--- NOTE | 2019-03-21 14:50 | CONS ---
DATE OF ADMISSION: 03/11/2019 DATE OF CONSULTATION: 03/21/2019 REFERRING PHYSICIAN: Farhad Santana MD REASON FOR CONSULTATION: Bilateral foot pain, evaluation of nails. HISTORY OF PRESENT ILLNESS: The patient is currently in acute rehab, an 83-year-old status post card iac catheterization and percutaneous coronary intervention. PAST MEDICAL HISTORY: Includes coronary artery disease, hypertension, hypothyroidism, history of art hritis. PAST SURGICAL HISTORY: Status post cardiac catheterization. FAMILY HISTORY: None. SOCIAL HISTORY: Denies any smoking, alcohol or drugs. MEDICATIONS: Reviewed. PHYSICAL EXAMINATION: VITAL SIGNS: Temperature 97.9, pulse is 90, respiratory rate 17, blood pressure is 106/60, pulse ox is 99 on room air. GENERAL: The patient alert, oriented, regular respiration. EXTREMITIES: Venous stasis, edema, bilateral legs. Has some sharp edges to his toenails. No signs of tinea. Nails are painful with palpation. No cellulitis. No pressure sores noted. The patient i s using sequential compression device. Mycotic nails. ASSESSMENT: 1. Onychomycosis. 2. Pain, bilateral feet. 3. Coronary artery disease, status post percutaneous coronary intervention. PLAN: The patient was seen and evaluated. Nails were debrided. The patient tolerated procedure wel l. No signs of pressure sores. May benefit from followup as an outpatient. The patient is at risk for bleeding given current medications and recommend avoiding self-injury. Dictated By: ELIJAH LOVE/WALTER Conf#: [id number] DID#: [id number] CC: STEPHEN MANRIQUE DO; FARHAD SANTANA MD;*EndCC*
--- NOTE | 2019-03-21 14:50 | PN ---
Date/Time of Note Date/Time of Note DATE: 03/21/19 TIME: 14:47 Subjective Patient reports some right supralateral knee swelling Objective Vital Signs Date Temp Pulse Resp B/P (MAP) Pulse Ox O2 O2 Flow FiO2 Time Delivery Rate 03/21/19 97.8 16 114/57 98 Room Air 08:00 (76) 03/21/19 92 02:00 03/17/19 30 21:48 Intake and Output 03/20/19 03/20/19 03/21/19 1515:00 23:00 07:00 IntakeIntake Total 190 ml 600 ml 100 ml OutputOutput Total 500 ml 450 ml 450 ml BalanceBalance -310 ml 150 ml -350 ml Exam pulm-cta R knee with swelling at the supra lateral area, at vastus lateralis area Results/Medications Result Diagram: 03/17/1939 03/17/19 0640 Medications Current Medications Aspirin (Aspirin) 81 mg DAILY PO Last administered on 03/21/19 08:25; Admin Dose 81 MG; Start 03/12/19 at 09:00 Atorvastatin Calcium (Lipitor) 40 mg HS PO Last administered on 03/20/19 21:44; Admin Dose 40 MG; Start 03/11/19 at 22:00 Carvedilol (Coreg) 3.125 mg BID PO Last administered on 03/21/19 08:26; Admin Dose 3.125 MG; Start 03/11/19 at 22:00 Clopidogrel Bisulfate (plaVIX) 75 mg DAILY PO Last administered on 03/21/19 08:27; Admin Dose 75 MG; Start 03/12/19 at 09:00 Furosemide (Lasix) 40 mg DAILY PO Last administered on 03/21/19 08:26; Admin Dose 40 MG; Start 03/12/19 at 09:00 Lactulose (Enulose) 10 gm Q6 PRN PO CONSTIPATION; Start 03/11/19 at 22:00 Levothyroxine Sodium (Synthroid) 50 mcg BEFORE BREAKFAST PO Last administered on 03/21/19 06:40; Admin Dose 50 MCG; Start 03/12/19 at 07:00 Potassium Chloride (Klor-Con 10) 10 meq DAILY PO Last administered on 03/21/19 08:26; Admin Dose 10 MEQ; Start 03/12/19 at 09:00 Tramadol HCl (Ultram) 50 mg TID PO Last administered on 03/21/19 13:01; Admin Dose 50 MG; Start 03/11/19 at 22:00 Docusate Sodium (Colace) 100 mg BID PO Last administered on 03/21/19 08:25; Admin Dose 100 MG; Start 03/12/19 at 09:00 Senna (Senokot) 1 tab QHS PO Last administered on 03/20/19at 21:44; Admin Dose 1 TAB; Start 03/12/19 at 21:00 Acetaminophen (Tylenol Tab) 650 mg Q4H PRN PO MILD PAIN(1-3)OR ELEVATED TEMP; Start 03/11/19 at 22:30 Bisacodyl (Dulcolax Supp) 10 mg DAILY PRN [place] CONSTIPATION; Start 03/11/19 at 22:30 Magnesium Hydroxide (Milk Of Mag) 30 ml BID PRN PO CONSTIPATION; Start 03/11/19 at 22:30 Diclofenac Sodium (Voltaren 1% Gel) 4 gm QID TP Last administered on 03/21/19at 13:01; Admin Dose 4 GM; Start 03/13/19 at 13:00 Polyethylene Glycol (Miralax) 17 gm DAILY PO Last administered on 03/21/19at 09:54; Admin Dose 17 GM; Start 03/15/19 at 09:00 Sodium Biphosphate/ Sodium Phosphate (Fleet Enema) 133 ml DAILY PRN [place] CONSTIPATION; Start 03/16/19 at 08:30 Spironolactone (Aldactone) 25 mg DAILY@0600 PO Last administered on 03/21/19at 06:40; Admin Dose 25 MG; Start 03/16/19 at 14:00 Eye Lubricant (Artificial Tears Oph) 2 drop Q6H PRN BOTH EYES DRY EYES; Start 03/20/19 at 17:00 Lisinopril (Zestril) 2.5 mg DAILY PO Last administered on 03/21/19at 11:12; Admin Dose 2.5 MG; Start 03/21/19 at 10:30 Assessment/Plan Additional Assessment/Plan rehab- Cardiac debility status post ST elevation myocardial infarction, cardiomyopathy. Continue rehab as tolerated. Will obtain Knee Xray to assess swelling Anemia. Hypertension. Hyperlipidemia. Hypothyroidism. Scrotal hernia. Venous stasis changes. Severe osteoarthritis affecting bilateral knees. FARHAD SANTANA MD March 21, 2019 14:50
--- NOTE | 2019-03-21 20:26 | CONS ---
DATE OF ADMISSION: 03/11/2019 DATE OF CONSULTATION: 03/21/2019 TYPE OF CONSULTATION: Psychological. REFERRING PHYSICIAN: Farhad Le MD. CONSULTING PSYCHOLOGIST: Janet Vance, PhD. REASON FOR CONSULTATION: This consultation was requested by Dr. Dot Le in order to evaluate guido renae cognitive and emotional functioning of this patient related to his present medical condition. HISTORY OF PRESENT ILLNESS: The patient is an 83-year-old male. The patient has multiple medical pr oblems. He was admitted to the hospital with chest pain. The patient was eventually cleared medical ly and sent to the acute rehabilitation unit for acute multidisciplinary rehabilitation. The patient is motivated to get better and does want to return to his previous level of functioning. The patien t is presently reporting pain in both his knees and elbows and he reports his pain level as a 7. The patient is trying to do whatever he can to help himself become more functional. FAMILY AND SOCIAL HISTORY: The patient lives in a single apartment by himself. The patient reports that he has lived by himself for 45 years. The patient reports that he lives in the same apartment a pproximately 40 years. The patient does want to return there after discharge. MEDICATIONS: The patient is currently not on any psychotropic medications. SUBSTANCE USE: The patient reports that he does not smoke. The patient reports that he does not use alcohol or other drugs. MENTAL STATUS EXAMINATION: APPEARANCE: The patient was seen in bed. He is of average height and weight. The patient wears gla sses and is right-handed. BEHAVIOR: The patient was cooperative during the consultation. The patient did attempt to answer al l questions presented to him by the interviewer. MOOD AND AFFECT: The patient's mood appears to be slightly anxious. The patient does report to have some anxiety. Affect does relate to his being frustrated about all his medical problems. PERCEPTION: The patient reports no hallucinations or delusions. The patient was alert to person, pl alexandro, situation and time. MEMORY AND COGNITION: The patient's memory and cognition appear to be intact. He was able to do num erous things for his age that appear to show that he is having relatively on impaired cognitive funct ioning. The patient was able to remember recent and remote events. The patient was able to name the hospital. The patient was able to say the month, date and year. The patient was able to say who th e President of [facility] is. He could not remember who the governor of the state of [place] i s, but could remember who the mayor was, but he kind of got them mixed up with the governor. Overall , able to work with . The patient was able to spell "world" backwards. The patient was able to do 5 serial-7 subtractions from 100. Overall, given the patient's medical problems and his age, his cognitive functioning appears to be quite adequate. INTELLIGENCE: Intelligence appears to fall in the average to above-average range. INSIGHT: Good. JUDGMENT: Good. THOUGHT CONTENT: The patient is concerned about his present medical condition. The patient does wan t to recover and return to his previous level of functioning. The patient does want to do whatever h e can to make this happen. The patient is highly motivated to return to his previous functioning. DISCUSSION: The patient can likely benefit from some cognitive and behavioral psychotherapy while he is on the unit. Psychotherapy would focus on his underlying level of anxiety relating to all his me dical problems. 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 Thank you very much, Dr. Dot Le, for referring this individual. Please do not hesitate to shashank nix if you have additional questions. Dictated By: JANET VANCE PHD RK/WALTER Conf#: [id number] DID#: [id number] CC: STEPHEN MANRIQUE DO; FARHAD LE MD;*[facility]*
[2019-03-21] MEDS: SENNA TAB PO SCH (21:00)
[2019-03-21 21:20] VITALS: BP 101/58; PULSE 90; RESP 18
[2019-03-21] MEDS: ATORVASTATIN 40 MG TAB PO SCH (21:44)
[2019-03-22 02:00] VITALS: BP 105/58; PULSE 91; RESP 18
[2019-03-22] MEDS: LEVOTHYROXINE 50 MCG TAB PO SCH (06:20)
[2019-03-22] MEDS: SPIRONOLACTONE 25 MG TAB PO SCH (06:20)
[2019-03-22 08:00] VITALS: BP 103/56; PULSE 96; RESP 19
[2019-03-22] MEDS: POLYETHYLENE GLYCOL 17 GM PACKET PO SCH (09:00)
[2019-03-22] MEDS: DICLOFENAC SODIUM 1% GEL 100 GM TUBE TP SCH ×4 (09:00→20:33)
[2019-03-22] MEDS: DOCUSATE SODIUM 100 MG CAP PO SCH ×2 (09:02→20:32)
[2019-03-22] MEDS: ASPIRIN 81 MG TAB PO SCH (09:02)
[2019-03-22] MEDS: LISINOPRIL 5 MG TAB PO SCH (09:05)
[2019-03-22] MEDS: FUROSEMIDE 40 MG TAB PO SCH (09:05)
[2019-03-22] MEDS: POTASSIUM CHLORIDE (SR) 10 MEQ TAB PO SCH (09:06)
[2019-03-22] MEDS: CLOPIDOGREL 75 MG TAB PO SCH (09:07)
[2019-03-22] MEDS: traMADol 50 MG TAB PO SCH ×3 (09:07→20:32)
--- NOTE | 2019-03-22 09:16 | PN ---
DATE: 03/22/2019 SUBJECTIVE: The patient is stable, no events overnight. No fevers, chills, no nausea, no vomiting. OBJECTIVE: VITAL SIGNS: Blood pressure 103/56, respiration 19, pulse 96, temperature 98.6. HEENT: Head is normocephalic. NECK: Supple. HEART: Regular rate. LUNGS: Show diminished breath sounds at base. ABDOMEN: Soft, nontender to palpation without rebound or guarding. EXTREMITIES: Negative for clubbing, cyanosis, no edema. DERMATOLOGIC: No rashes. MUSCULOSKELETAL: No joint effusion. NEUROLOGIC: No change in exam. MEDICATIONS: Have been reviewed. LABORATORY DATA: Has been reviewed. ASSESSMENT AND PLAN: 1. Coronary artery disease, status post percutaneous coronary intervention. Continue medical manage ment. Patient was started on low dose LINDSEY inhibitor. Monitor hemodynamics, volume status closely. 2. History of ischemic cardiomyopathy. The patient appears compensated. Continue medical managemen t. 3. Anemia. Monitor hemoglobin and hematocrit levels. 4. Dyslipidemia. Continue statin therapy. 5. Hypothyroidism. Continue Synthroid. 6. Sleep apnea. Continue . 7. Arrhythmia. Patient will have a LifeVest fitted in outpatient setting. 8. Constipation, improved. 9. Debility. Continue physical therapy. Dictated By: STEPHEN PORTER/WALTER Conf#: [id number] DID#: [id number]
--- NOTE | 2019-03-22 11:14 | CONS ---
Assessment/Plan Assessment/Plan Hospital Course (Demo Recall) Chronic systolic CHF: euvolemic Anterior STEMI: s/p PCI of prox-mid culprit LAD and mid LAD into diag 2. Doing very well CAD: as above. Residual ostial and prox diag 2 disease will be managed medically Ischemic cardiomyopathy: EF 30-35%. LifeVest delivered but does not want to wear it until after discharge -lisinopril 2.5mg daily -aldactone 25mg daily -lasix 40mg PO daily with KCL -ASA 81mg lifelong -plavix 75mg dialy x 1 year -lipitor -coreg 3.125mng BID as tolerated Consultation Date/Type/Reason Admit Date/Time March 11, 2019 at 19:40 Initial Consult Date Type of Consult Cardiology Date/Time of Note DATE: 03/22/19 TIME: 11:13 24 HR Interval Summary Free Text/Dictation No events. No complaints Exam/Review of Systems Vital Signs Vitals Vital Signs Date Temp Pulse Resp B/P (MAP) Pulse Ox O2 O2 Flow FiO2 Time Delivery Rate 03/22/19 98.6 96 19 103/56 100 Room Air 08:00 (72) Intake and Output 03/21/19 03/21/19 03/22/19 1515:00 23:00 07:00 IntakeIntake Total 400 ml 250 ml 200 ml OutputOutput Total 425 ml 350 ml 300 ml BalanceBalance -25 ml -100 ml -100 ml Exam Constitutional: alert, oriented Psych: no complaints, nl mood/affect Head: normocephalic, atraumatic Neck: supple; No jvd Respiratory: diminished breath sounds; No clear to auscultation Cardiovascular: regular rate and rhythm; No edema Neurological: nl mental status, nl speech Medications Medications Current Medications Aspirin (Aspirin) 81 mg DAILY PO Last administered on 03/22/19at 09:02; Admin Dose 81 MG; Start 03/12/19 at 09:00 Atorvastatin Calcium (Lipitor) 40 mg HS PO Last administered on 03/21/19at 21:44; Admin Dose 40 MG; Start 03/11/19 at 22:00 Carvedilol (Coreg) 3.125 mg BID PO Last administered on 03/21/19at 08:26; Admin Dose 3.125 MG; Start 03/11/19 at 22:00 Clopidogrel Bisulfate (plaVIX) 75 mg DAILY PO Last administered on 03/22/19 09:07; Admin Dose 75 MG; Start 03/12/19 at 09:00 Furosemide (Lasix) 40 mg DAILY PO Last administered on 03/22/19 09:05; Admin Dose 40 MG; Start 03/12/19 at 09:00 Lactulose (Enulose) 10 gm Q6 PRN PO CONSTIPATION; Start 03/11/19 at 22:00 Levothyroxine Sodium (Synthroid) 50 mcg BEFORE BREAKFAST PO Last administered on 03/22/19 06:20; Admin Dose 50 MCG; Start 03/12/19 at 07:00 Potassium Chloride (Klor-Con 10) 10 meq DAILY PO Last administered on 03/22/19 09:06; Admin Dose 10 MEQ; Start 03/12/19 at 09:00 Tramadol HCl (Ultram) 50 mg TID PO Last administered on 03/22/19 09:07; Admin Dose 50 MG; Start 03/11/19 at 22:00 Docusate Sodium (Colace) 100 mg BID PO Last administered on 03/22/19 09:02; Admin Dose 100 MG; Start 03/12/19 at 09:00 Senna (Senokot) 1 tab QHS PO Last administered on 03/20/19 21:44; Admin Dose 1 TAB; Start 03/12/19 at 21:00 Acetaminophen (Tylenol Tab) 650 mg Q4H PRN PO MILD PAIN(1-3)OR ELEVATED TEMP; Start 03/11/19 at 22:30 Bisacodyl (Dulcolax Supp) 10 mg DAILY PRN [place] CONSTIPATION; Start 03/11/19 at 22:30 Magnesium Hydroxide (Milk Of Mag) 30 ml BID PRN PO CONSTIPATION; Start 03/11/19 at 22:30 Diclofenac Sodium (Voltaren 1% Gel) 4 gm QID TP Last administered on 03/22/19 09:00; Admin Dose 4 GM; Start 03/13/19 at 13:00 Polyethylene Glycol (Miralax) 17 gm DAILY PO Last administered on 03/22/19 09:00; Admin Dose 17 GM; Start 03/15/19 at 09:00 Sodium Biphosphate/ Sodium Phosphate (Fleet Enema) 133 ml DAILY PRN [place] CONSTIPATION; Start 03/16/19 at 08:30 Spironolactone (Aldactone) 25 mg DAILY@0600 PO Last administered on 03/22/19at 06:20; Admin Dose 25 MG; Start 03/16/19 at 14:00 Eye Lubricant (Artificial Tears Oph) 2 drop Q6H PRN BOTH EYES DRY EYES; Start 03/20/19 at 17:00 Lisinopril (Zestril) 2.5 mg DAILY PO Last administered on 03/22/19at 09:05; Admin Dose 2.5 MG; Start 03/21/19 at 10:30 PALMIRA MISHRA March 22, 2019 11:14
--- NOTE | 2019-03-22 13:32 | PN ---
Date/Time of Note Date/Time of Note DATE: 03/22/19 TIME: 13:30 Objective Vital Signs Date Temp Pulse Resp B/P (MAP) Pulse Ox O2 O2 Flow FiO2 Time Delivery Rate 03/22/19 98.6 96 19 103/56 100 Room Air 08:00 (72) Intake and Output 03/21/19 03/21/19 03/22/19 1515:00 23:00 07:00 IntakeIntake Total 400 ml 250 ml 200 ml OutputOutput Total 425 ml 350 ml 300 ml BalanceBalance -25 ml -100 ml -100 ml Exam INTERDISCIPLINARY TEAM CONFERENCE Attended by PT, OT, ST, Core Machine Operator, Social Work, Rehabilitation Nursing, Wetland Scientist and Rail Car DriverAquacultural Worker Supervisor Exam: Pulm- cta Abd-soft BOWEL- Cont BLADDER-Cont SKIN- improving OT- DRESSING-mod/max BATHING-mod/max TOILETING-mod/max PT- BED MOBILITY-min TRANSFERS-mod/min WHEELCHAIR- sba A/P- Interdisciplinary team conference held today. Please see interdisciplinary sheet. Working toward d.c. on 03/26 with post discharge follow up of physical therapy, occupational therapy. Results/Medications Medications Current Medications Aspirin (Aspirin) 81 mg DAILY PO Last administered on 03/22/19 09:02; Admin Dose 81 MG; Start 03/12/19 at 09:00 Atorvastatin Calcium (Lipitor) 40 mg HS PO Last administered on 03/21/19at 21:44; Admin Dose 40 MG; Start 03/11/19 at 22:00 Carvedilol (Coreg) 3.125 mg BID PO Last administered on 03/21/19at 08:26; Admin Dose 3.125 MG; Start 03/11/19 at 22:00 Clopidogrel Bisulfate (plaVIX) 75 mg DAILY PO Last administered on 03/22/19 09:07; Admin Dose 75 MG; Start 03/12/19 at 09:00 Furosemide (Lasix) 40 mg DAILY PO Last administered on 03/22/19at 09:05; Admin Dose 40 MG; Start 03/12/19 at 09:00 Lactulose (Enulose) 10 gm Q6 PRN PO CONSTIPATION; Start 03/11/19 at 22:00 Levothyroxine Sodium (Synthroid) 50 mcg BEFORE BREAKFAST PO Last administered on 03/22/19at 06:20; Admin Dose 50 MCG; Start 03/12/19 at 07:00 Potassium Chloride (Klor-Con 10) 10 meq DAILY PO Last administered on 03/22/19 09:06; Admin Dose 10 MEQ; Start 03/12/19 at 09:00 Tramadol HCl (Ultram) 50 mg TID PO Last administered on 03/22/19 13:17; Admin Dose 50 MG; Start 03/11/19 at 22:00 Docusate Sodium (Colace) 100 mg BID PO Last administered on 03/22/19 09:02; Admin Dose 100 MG; Start 03/12/19 at 09:00 Senna (Senokot) 1 tab QHS PO Last administered on 03/20/19 21:44; Admin Dose 1 TAB; Start 03/12/19 at 21:00 Acetaminophen (Tylenol Tab) 650 mg Q4H PRN PO MILD PAIN(1-3)OR ELEVATED TEMP; Start 03/11/19 at 22:30 Bisacodyl (Dulcolax Supp) 10 mg DAILY PRN [place] CONSTIPATION; Start 03/11/19 at 22:30 Magnesium Hydroxide (Milk Of Mag) 30 ml BID PRN PO CONSTIPATION; Start 03/11/19 at 22:30 Diclofenac Sodium (Voltaren 1% Gel) 4 gm QID TP Last administered on 03/22/19 13:16; Admin Dose 4 GM; Start 03/13/19 at 13:00 Polyethylene Glycol (Miralax) 17 gm DAILY PO Last administered on 03/22/19 09:00; Admin Dose 17 GM; Start 03/15/19 at 09:00 Sodium Biphosphate/ Sodium Phosphate (Fleet Enema) 133 ml DAILY PRN [place] CONSTIPATION; Start 03/16/19 at 08:30 Spironolactone (Aldactone) 25 mg DAILY@0600 PO Last administered on 03/22/19 06:20; Admin Dose 25 MG; Start 03/16/19 at 14:00 Eye Lubricant (Artificial Tears Oph) 2 drop Q6H PRN BOTH EYES DRY EYES; Start 03/20/19 at 17:00 Lisinopril (Zestril) 2.5 mg DAILY PO Last administered on 03/22/19 09:05; Admin Dose 2.5 MG; Start 03/21/19 at 10:30 FARHAD SANTANA MD March 22, 2019 13:32
[2019-03-22] MEDS ORDERED: BUPIVACAINE 0.5%/EPI (SDV) 10 ML INJ INJ ONE (18:00)
[2019-03-22] MEDS ORDERED: BETAMET NA PHOS/AC(6 MG/ML) 5ML INJ INJ ONE (18:00)
[2019-03-22 19:30] VITALS: BP 96/55; PULSE 90; RESP 18
[2019-03-22] MEDS ORDERED: BUPIVACAINE 0.5%/EPI (SDV) 30 ML INJ INJ ONE (19:30)
[2019-03-22] MEDS: SENNA TAB PO SCH (20:32)
[2019-03-22] MEDS: ATORVASTATIN 40 MG TAB PO SCH (20:32)
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
[2019-03-23 02:00] VITALS: BP 117/71; PULSE 99; RESP 20
[2019-03-23 06:00] VITALS: BP 104/58; PULSE 95
[2019-03-23] MEDS: SPIRONOLACTONE 25 MG TAB PO SCH (06:16)
[2019-03-23] MEDS: LEVOTHYROXINE 50 MCG TAB PO SCH (06:16)
[2019-03-23 07:00] VITALS: BP 118/66; PULSE 93; RESP 18
[2019-03-23] MEDS: POLYETHYLENE GLYCOL 17 GM PACKET PO SCH (09:27)
[2019-03-23] MEDS: FUROSEMIDE 40 MG TAB PO SCH (09:27)
[2019-03-23] MEDS: DOCUSATE SODIUM 100 MG CAP PO SCH ×2 (09:27→20:38)
[2019-03-23] MEDS: LISINOPRIL 5 MG TAB PO SCH (09:27)
[2019-03-23] MEDS: traMADol 50 MG TAB PO SCH ×3 (09:29→20:38)
[2019-03-23] MEDS: ASPIRIN 81 MG TAB PO SCH (09:29)
[2019-03-23] MEDS: POTASSIUM CHLORIDE (SR) 10 MEQ TAB PO SCH (09:29)
[2019-03-23] MEDS: CLOPIDOGREL 75 MG TAB PO SCH (09:29)
[2019-03-23] MEDS: DICLOFENAC SODIUM 1% GEL 100 GM TUBE TP SCH ×4 (09:30→20:40)
--- NOTE | 2019-03-23 09:36 | PN ---
DATE: 03/23/2019 SUBJECTIVE: The patient is stable, no events overnight. OBJECTIVE: VITAL SIGNS: Blood pressure is 118/66, pulse 93, respirations 18, temperature 98.1. HEENT: Head is normocephalic. NECK: Supple. HEART: Regular rate. LUNGS: Show diminished breath sounds at the base. ABDOMEN: Soft, nontender to palpation without rebound or guarding. EXTREMITIES: Negative for clubbing, cyanosis, no edema. DERMATOLOGIC: No rashes. MUSCULOSKELETAL: The patient has mild tenderness to palpation in right knee. No joint effusion note d. NEUROLOGIC: No focal deficits. MEDICATIONS: Reviewed. LABORATORY DATA: Reviewed. ASSESSMENT AND PLAN: 1. Coronary artery disease, status post percutaneous coronary intervention. Continue medical manage ment. 2. Ischemic cardiomyopathy. Continue medical management. Followup with cardiology. 3. Anemia. Monitor hemoglobin and hematocrit levels. 4. Dyslipidemia. Continue statin therapy. 5. Hypothyroidism. Continue Synthroid. 6. Sleep apnea. Continue CPAP at night if tolerated. 7. Arrhythmia. The patient is pending LifeVest placement. 8. Constipation, improved. 9. Debility. Continue physical therapy. Dictated By: STEPHEN MANRIQUE DO NR/NTS Conf#: [id number] DID#: [id number] CC: STEPHEN MANRIQUE DO; GM BECERRA MD; FARHAD SANTANA MD;*EndCC*
--- NOTE | 2019-03-23 13:24 | PN ---
Date/Time of Note Date/Time of Note DATE: 03/23/19 TIME: 13:24 Subjective Patient concerned about discharge Objective Vital Signs Date Temp Pulse Resp B/P (MAP) Pulse Ox O2 O2 Flow FiO2 Time Delivery Rate 03/23/19 98.1 93 18 118/66 98 Room Air 07:00 (83) Intake and Output 03/22/19 03/22/19 03/23/19 1515:00 23:00 07:00 IntakeIntake Total 100 ml 200 ml OutputOutput Total 270 ml 600 ml BalanceBalance -170 ml -400 ml Exam pulm-cta min transfer Results/Medications Result Diagram: 03/23/19 0710 Results 24 hrs Laboratory Tests Test 03/23/19 07:10 Sodium Level 136 Potassium Level 5.1 Chloride Level 103 Carbon Dioxide Level 24 Anion Gap 9 Blood Urea Nitrogen 36 H Creatinine 0.96 Est Glomerular Filtrat Rate mL/min Glucose Level 155 Calcium Level 9.7 Phosphorus Level 3.9 Magnesium Level 2.2 Medications Current Medications Aspirin (Aspirin) 81 mg DAILY PO Last administered on 03/23/19 09:29; Admin Dose 81 MG; Start 03/12/19 at 09:00 Atorvastatin Calcium (Lipitor) 40 mg HS PO Last administered on 03/22/19 20:32; Admin Dose 40 MG; Start 03/11/19 at 22:00 Carvedilol (Coreg) 3.125 mg BID PO Last administered on 03/23/19 09:28; Admin Dose 3.125 MG; Start 03/11/19 at 22:00 Clopidogrel Bisulfate (plaVIX) 75 mg DAILY PO Last administered on 03/23/19 09:29; Admin Dose 75 MG; Start 03/12/19 at 09:00 Furosemide (Lasix) 40 mg DAILY PO Last administered on 03/23/19 09:27; Admin Dose 40 MG; Start 03/12/19 at 09:00 Lactulose (Enulose) 10 gm Q6 PRN PO CONSTIPATION; Start 03/11/19 at 22:00 Levothyroxine Sodium (Synthroid) 50 mcg BEFORE BREAKFAST PO Last administered on 03/23/19 06:16; Admin Dose 50 MCG; Start 03/12/19 at 07:00 Potassium Chloride (Klor-Con 10) 10 meq DAILY PO Last administered on 03/23/19 09:29; Admin Dose 10 MEQ; Start 03/12/19 at 09:00 Tramadol HCl (Ultram) 50 mg TID PO Last administered on 03/23/19 09:29; Admin Dose 50 MG; Start 03/11/19 at 22:00 Docusate Sodium (Colace) 100 mg BID PO Last administered on 03/23/19 09:27; Admin Dose 100 MG; Start 03/12/19 at 09:00 Senna (Senokot) 1 tab QHS PO Last administered on 03/22/19 20:32; Admin Dose 1 TAB; Start 03/12/19 at 21:00 Acetaminophen (Tylenol Tab) 650 mg Q4H PRN PO MILD PAIN(1-3)OR ELEVATED TEMP; Start 03/11/19 at 22:30 Bisacodyl (Dulcolax Supp) 10 mg DAILY PRN [place] CONSTIPATION; Start 03/11/19 at 22:30 Magnesium Hydroxide (Milk Of Mag) 30 ml BID PRN PO CONSTIPATION; Start 03/11/19 at 22:30 Diclofenac Sodium (Voltaren 1% Gel) 4 gm QID TP Last administered on 03/23/19 09:30; Admin Dose 4 GM; Start 03/13/19 at 13:00 Polyethylene Glycol (Miralax) 17 gm DAILY PO Last administered on 03/23/19 09:27; Admin Dose 17 GM; Start 03/15/19 at 09:00 Sodium Biphosphate/ Sodium Phosphate (Fleet Enema) 133 ml DAILY PRN [place] CONSTIPATION; Start 03/16/19 at 08:30 Spironolactone (Aldactone) 25 mg DAILY@0600 PO Last administered on 03/23/19 06:16; Admin Dose 25 MG; Start 03/16/19 at 14:00 Eye Lubricant (Artificial Tears Oph) 2 drop Q6H PRN BOTH EYES DRY EYES; Start 03/20/19 at 17:00 Lisinopril (Zestril) 2.5 mg DAILY PO Last administered on 03/23/19 09:27; Admin Dose 2.5 MG; Start 03/21/19 at 10:30 Assessment/Plan Additional Assessment/Plan rehab- Cardiac debility status post ST elevation myocardial infarction, cardiomyopathy. Continue rehab, improvng Anemia. Hypertension. Hyperlipidemia. Hypothyroidism. Scrotal hernia. Venous stasis changes. Severe osteoarthritis affecting bilateral knees. FARHAD SANTANA MD March 23, 2019 13:24
[2019-03-23 14:00] VITALS: BP 119/68; RESP 18
[2019-03-23 19:44] VITALS: BP 118/65; PULSE 92; RESP 18
[2019-03-23] MEDS: SENNA TAB PO SCH (20:38)
[2019-03-23] MEDS: ATORVASTATIN 40 MG TAB PO SCH (20:38)
[2019-03-24 02:00] VITALS: BP 114/62; PULSE 95; RESP 18
[2019-03-24] MEDS: SPIRONOLACTONE 25 MG TAB PO SCH (06:03)
[2019-03-24] MEDS: LEVOTHYROXINE 50 MCG TAB PO SCH (06:03)
[2019-03-24 07:00] VITALS: BP 98/54; PULSE 83; RESP 16
--- NOTE | 2019-03-24 08:57 | PN ---
DATE: 03/24/2019 SUBJECTIVE: The patient is stable, no events overnight. OBJECTIVE: VITAL SIGNS: Blood pressure is 114/62, respirations 18, pulse 95, temperature 98.4. HEENT: Head is normocephalic. NECK: Supple. HEART: Regular rate. LUNGS: Show diminished breath sounds at the base. ABDOMEN: Soft, nontender to palpation without rebound or guarding. EXTREMITIES: Negative for clubbing, cyanosis, no edema. DERMATOLOGIC: No rashes. MUSCULOSKELETAL: No joint effusion. NEUROLOGIC: No change in exam. MEDICATIONS: Reviewed. ASSESSMENT AND PLAN: 1. Coronary artery disease, status post percutaneous coronary intervention. Continue current medica l management. 2. Ischemic cardiomyopathy, stable. Continue to monitor. Follow up with Cardiology. 3. Anemia. Monitor hemoglobin and hematocrit levels. 4. Dyslipidemia. Continue statin therapy. 5. Hypothyroidism. Continue Synthroid. 6. Sleep apnea. Continue CPAP at night. 7. Arrhythmia. The patient is to be fitted with a LifeVest. 8. Constipation, improved. 9. Debility. Continue physical therapy. Dictated By: STEPHEN MANRIQUE DO NR/NTS Conf#: [id number] DID#: [id number] CC: GM BECERRA MD; FARHAD SANTANA MD; STEPHEN MANRIQUE DO;*EndCC*
[2019-03-24] MEDS: LISINOPRIL 5 MG TAB PO SCH (09:00)
[2019-03-24] MEDS: FUROSEMIDE 40 MG TAB PO SCH (09:00)
[2019-03-24] MEDS: POLYETHYLENE GLYCOL 17 GM PACKET PO SCH (09:25)
[2019-03-24] MEDS: CLOPIDOGREL 75 MG TAB PO SCH (09:27)
[2019-03-24] MEDS: POTASSIUM CHLORIDE (SR) 10 MEQ TAB PO SCH (09:27)
[2019-03-24] MEDS: traMADol 50 MG TAB PO SCH ×3 (09:28→21:01)
[2019-03-24] MEDS: DOCUSATE SODIUM 100 MG CAP PO SCH ×2 (09:36→21:01)
[2019-03-24] MEDS: ASPIRIN 81 MG TAB PO SCH (09:36)
[2019-03-24] MEDS: DICLOFENAC SODIUM 1% GEL 100 GM TUBE TP SCH ×4 (09:37→21:02)
--- NOTE | 2019-03-24 09:55 | PN ---
Date/Time of Note Date/Time of Note DATE: 03/24/19 TIME: 09:55 Subjective Less knee pain after injection Objective Vital Signs Date Temp Pulse Resp B/P (MAP) Pulse Ox O2 O2 Flow FiO2 Time Delivery Rate 03/24/19 97.5 83 16 98/54 (69) 99 Room Air 07:00 Intake and Output 03/23/19 03/23/19 03/24/19 1515:00 23:00 07:00 IntakeIntake Total 1200 ml 200 ml OutputOutput Total 800 ml 400 ml BalanceBalance 400 ml -200 ml Exam pulm-cta min transfer Results/Medications Result Diagram: 03/23/19 0710 Medications Current Medications Aspirin (Aspirin) 81 mg DAILY PO Last administered on 03/24/19 09:36; Admin Dose 81 MG; Start 03/12/19 at 09:00 Atorvastatin Calcium (Lipitor) 40 mg HS PO Last administered on 03/23/19 20:38; Admin Dose 40 MG; Start 03/11/19 at 22:00 Carvedilol (Coreg) 3.125 mg BID PO Last administered on 03/23/19 20:39; Admin Dose 3.125 MG; Start 03/11/19 at 22:00 Clopidogrel Bisulfate (plaVIX) 75 mg DAILY PO Last administered on 03/24/19 09:27; Admin Dose 75 MG; Start 03/12/19 at 09:00 Furosemide (Lasix) 40 mg DAILY PO Last administered on 03/23/19 09:27; Admin Dose 40 MG; Start 03/12/19 at 09:00 Lactulose (Enulose) 10 gm Q6 PRN PO CONSTIPATION; Start 03/11/19 at 22:00 Levothyroxine Sodium (Synthroid) 50 mcg BEFORE BREAKFAST PO Last administered on 03/24/19 06:03; Admin Dose 50 MCG; Start 03/12/19 at 07:00 Potassium Chloride (Klor-Con 10) 10 meq DAILY PO Last administered on 03/24/19 09:27; Admin Dose 10 MEQ; Start 03/12/19 at 09:00 Tramadol HCl (Ultram) 50 mg TID PO Last administered on 03/24/19 09:28; Admin Dose 50 MG; Start 03/11/19 at 22:00 Docusate Sodium (Colace) 100 mg BID PO Last administered on 03/24/19 09:36; Admin Dose 100 MG; Start 03/12/19 at 09:00 Senna (Senokot) 1 tab QHS PO Last administered on 03/23/19 20:38; Admin Dose 1 TAB; Start 03/12/19 at 21:00 Acetaminophen (Tylenol Tab) 650 mg Q4H PRN PO MILD PAIN(1-3)OR ELEVATED TEMP; Start 03/11/19 at 22:30 Bisacodyl (Dulcolax Supp) 10 mg DAILY PRN [place] CONSTIPATION; Start 03/11/19 at 22:30 Magnesium Hydroxide (Milk Of Mag) 30 ml BID PRN PO CONSTIPATION; Start 03/11/19 at 22:30 Diclofenac Sodium (Voltaren 1% Gel) 4 gm QID TP Last administered on 03/24/19 09:37; Admin Dose 4 GM; Start 03/13/19 at 13:00 Polyethylene Glycol (Miralax) 17 gm DAILY PO Last administered on 03/24/19 09:25; Admin Dose 17 GM; Start 03/15/19 at 09:00 Sodium Biphosphate/ Sodium Phosphate (Fleet Enema) 133 ml DAILY PRN [place] CONSTIPATION; Start 03/16/19 at 08:30 Spironolactone (Aldactone) 25 mg DAILY@0600 PO Last administered on 03/24/19 06:03; Admin Dose 25 MG; Start 03/16/19 at 14:00 Eye Lubricant (Artificial Tears Oph) 2 drop Q6H PRN BOTH EYES DRY EYES; Start 03/20/19 at 17:00 Lisinopril (Zestril) 2.5 mg DAILY PO Last administered on 03/23/19 09:27; Admin Dose 2.5 MG; Start 03/21/19 at 10:30 Assessment/Plan Additional Assessment/Plan rehab- Cardiac debility status post ST elevation myocardial infarction, cardiomyopathy. Progressin with program Anemia. Hypertension. Hyperlipidemia. Hypothyroidism. Scrotal hernia. Venous stasis changes. Severe osteoarthritis affecting bilateral knees. FARHAD SANTANA MD March 24, 2019 09:55
[2019-03-24 14:00] VITALS: BP 91/54; PULSE 88; RESP 18
[2019-03-24 19:20] VITALS: BP 110/61; PULSE 94; RESP 18
[2019-03-24] MEDS: ATORVASTATIN 40 MG TAB PO SCH (21:01)
[2019-03-24] MEDS: SENNA TAB PO SCH (21:01)
[2019-03-25 02:00] VITALS: BP 114/63; PULSE 89; RESP 18
[2019-03-25] MEDS: SPIRONOLACTONE 25 MG TAB PO SCH (06:36)
[2019-03-25] MEDS: LEVOTHYROXINE 50 MCG TAB PO SCH (06:36)
[2019-03-25 07:00] VITALS: BP 112/67; PULSE 89; RESP 18
[2019-03-25] MEDS: POLYETHYLENE GLYCOL 17 GM PACKET PO SCH (08:43)
[2019-03-25] MEDS: FUROSEMIDE 40 MG TAB PO SCH (08:45)
[2019-03-25] MEDS: CLOPIDOGREL 75 MG TAB PO SCH (08:45)
[2019-03-25] MEDS: ASPIRIN 81 MG TAB PO SCH (08:45)
[2019-03-25] MEDS: POTASSIUM CHLORIDE (SR) 10 MEQ TAB PO SCH (08:45)
[2019-03-25] MEDS: DOCUSATE SODIUM 100 MG CAP PO SCH ×2 (08:46→21:15)
[2019-03-25] MEDS: LISINOPRIL 5 MG TAB PO SCH (08:47)
[2019-03-25] MEDS: traMADol 50 MG TAB PO SCH ×3 (08:48→21:15)
[2019-03-25] MEDS: DICLOFENAC SODIUM 1% GEL 100 GM TUBE TP SCH ×4 (08:54→21:00)
--- NOTE | 2019-03-25 10:32 | PN ---
DATE: 03/25/2019 SUBJECTIVE: The patient is stable, no events overnight. OBJECTIVE: VITAL SIGNS: Blood pressure is 114/63, pulse 94, respiration 18, temperature 98.4. HEENT: Head is normocephalic. NECK: Supple. HEART: Regular rate. LUNGS: Show diminished breath sounds at the base. ABDOMEN: Soft, nontender to palpation without rebound or guarding. EXTREMITIES: Negative for clubbing, cyanosis, no edema. DERMATOLOGIC: No rashes. MUSCULOSKELETAL: No joint effusion. NEUROLOGIC: No change in exam. MEDICATIONS: The patient's medications have been reviewed. LABORATORY DATA: Has been reviewed. ASSESSMENT AND PLAN: 1. Coronary artery disease, status post percutaneous coronary intervention. Continue current medica l management. 2. Ischemic cardiomyopathy, stable. Continue to monitor. Follow up with Cardiology. 3. Anemia. Monitor H and H levels. 4. Dyslipidemia. Continue statin therapy. 5. Hypothyroidism. Continue Synthroid. 6. Sleep apnea. Continue CPAP. 7. Arrhythmia. The patient is to be fitted with a LifeVest. 8. Constipation, improved. 9. Debility. Continue physical therapy. Dictated By: STEPHEN PORTER/WALTER Conf#: [id number] DID#: [id number]
[2019-03-25 14:00] VITALS: BP 83/55; PULSE 78; RESP 18
[2019-03-25 20:00] VITALS: BP 95/54; PULSE 93; RESP 18
[2019-03-25] MEDS: ATORVASTATIN 40 MG TAB PO SCH (21:15)
[2019-03-25] MEDS: SENNA TAB PO SCH (21:15)
[2019-03-26 02:04] VITALS: BP 101/65; PULSE 78; RESP 18
[2019-03-26] MEDS: SPIRONOLACTONE 25 MG TAB PO SCH (06:37)
[2019-03-26] MEDS: LEVOTHYROXINE 50 MCG TAB PO SCH (06:37)
[2019-03-26 07:30] VITALS: BP 106/69; PULSE 88; RESP 18
[2019-03-26] MEDS: CLOPIDOGREL 75 MG TAB PO SCH (08:30)
[2019-03-26] MEDS: POTASSIUM CHLORIDE (SR) 10 MEQ TAB PO SCH (08:31)
[2019-03-26] MEDS: ASPIRIN 81 MG TAB PO SCH (08:31)
[2019-03-26] MEDS: traMADol 50 MG TAB PO SCH ×3 (08:31→20:30)
[2019-03-26] MEDS: DICLOFENAC SODIUM 1% GEL 100 GM TUBE TP SCH ×4 (08:32→20:31)
--- NOTE | 2019-03-26 08:36 | PN ---
DATE: 03/26/2019 SUBJECTIVE: The patient yesterday was complaining about dizziness, lightheadedness with episodes of hypertension. No other events noted. OBJECTIVE: VITAL SIGNS: Blood pressure is 106/69, respirations 18, pulse 88, temperature 97.4. HEENT: Head is normocephalic. NECK: Supple. HEART: Regular rate. LUNGS: Show diminished breath sounds at the base. ABDOMEN: Soft, nontender to palpation without rebound or guarding. EXTREMITIES: Negative for clubbing, cyanosis. Trace edema. DERMATOLOGIC: No rashes. MUSCULOSKELETAL: No joint effusion. NEUROLOGIC: No change in exam. MEDICATIONS: The patient's medications have been reviewed. LABORATORY DATA: Reviewed. ASSESSMENT AND PLAN: 1. Coronary artery disease, status post percutaneous coronary intervention. Continue current medica l management. 2. Ischemic cardiomyopathy, stable. We will deescalate Lasix 20 mg daily in the setting of hyperten jeannette. 3. Hypertension. Etiology is likely due to medications, diuretics. We will hold LINDSEY inhibitor, irma scalate Lasix. Continue Coreg. 4. Anemia. Monitor hemoglobin and hematocrit levels. 5. Dyslipidemia. Continue statin therapy. 6. Hypothyroidism. Continue Synthroid. 7. Sleep apnea. Continue CPAP. 8. Arrhythmia. The patient was evaluated for LifeVest. 9. Constipation, improved. 10. Debility. Continue physical therapy. Dictated By: STEPHEN MANRIQUE DO NR/NTS Conf#: [id number] DID#: [id number] CC: GM BECERRA MD; FARHAD SANTANA MD; STEPHEN MANRIQUE DO;*EndCC*
[2019-03-26] MEDS: FUROSEMIDE 20 MG TAB PO SCH (08:44)
[2019-03-26] MEDS: POLYETHYLENE GLYCOL 17 GM PACKET PO SCH (09:00)
[2019-03-26] MEDS: DOCUSATE SODIUM 100 MG CAP PO SCH ×2 (09:00→20:30)
--- NOTE | 2019-03-26 10:35 | PN ---
Date/Time of Note Date/Time of Note DATE: 03/26/19 TIME: 10:34 Subjective No new complaints Objective Vital Signs Date Temp Pulse Resp B/P (MAP) Pulse Ox O2 O2 Flow FiO2 Time Delivery Rate 03/26/19 97.4 88 18 106/69 99 Room Air 07:30 (81) Intake and Output 03/25/19 03/25/19 03/26/19 1515:00 23:00 07:00 IntakeIntake Total 300 ml 1300 ml 100 ml OutputOutput Total 400 ml 1300 ml 600 ml BalanceBalance -100 ml 0 ml -500 ml Exam pulm-cta abd-soft sba transfer Results/Medications Result Diagram: 03/23/19 0710 Medications Current Medications Aspirin (Aspirin) 81 mg DAILY PO Last administered on 03/26/19 08:31; Admin Dose 81 MG; Start 03/12/19 at 09:00 Atorvastatin Calcium (Lipitor) 40 mg HS PO Last administered on 03/25/19 21:15; Admin Dose 40 MG; Start 03/11/19 at 22:00 Carvedilol (Coreg) 3.125 mg BID PO Last administered on 03/26/19 08:36; Admin Dose 3.125 MG; Start 03/11/19 at 22:00 Clopidogrel Bisulfate (plaVIX) 75 mg DAILY PO Last administered on 03/26/19 08:30; Admin Dose 75 MG; Start 03/12/19 at 09:00 Lactulose (Enulose) 10 gm Q6 PRN PO CONSTIPATION; Start 03/11/19 at 22:00 Levothyroxine Sodium (Synthroid) 50 mcg BEFORE BREAKFAST PO Last administered on 03/26/19at 06:37; Admin Dose 50 MCG; Start 03/12/19 at 07:00 Potassium Chloride (Klor-Con 10) 10 meq DAILY PO Last administered on 03/26/19 08:31; Admin Dose 10 MEQ; Start 03/12/19 at 09:00 Tramadol HCl (Ultram) 50 mg TID PO Last administered on 03/26/19 08:31; Admin Dose 50 MG; Start 03/11/19 at 22:00 Docusate Sodium (Colace) 100 mg BID PO Last administered on 03/25/19 21:15; Admin Dose 100 MG; Start 03/12/19 at 09:00 Senna (Senokot) 1 tab QHS PO Last administered on 03/25/19at 21:15; Admin Dose 1 TAB; Start 03/12/19 at 21:00 Acetaminophen (Tylenol Tab) 650 mg Q4H PRN PO MILD PAIN(1-3)OR ELEVATED TEMP; Start 03/11/19 at 22:30 Bisacodyl (Dulcolax Supp) [address] CONSTIPATION; Start 03/11/19 at 22:30 Magnesium Hydroxide (Milk Of Mag) 30 ml BID PRN PO CONSTIPATION; Start 03/11/19 at 22:30 Diclofenac Sodium (Voltaren 1% Gel) 4 gm QID TP Last administered on 03/26/19at 08:32; Admin Dose 4 GM; Start 03/13/19 at 13:00 Polyethylene Glycol (Miralax) 17 gm DAILY PO Last administered on 03/25/19at 08:43; Admin Dose 17 GM; Start 03/15/19 at 09:00 Sodium Biphosphate/ Sodium Phosphate (Fleet Enema) [address] CONSTIPATION; Start 03/16/19 at 08:30 Spironolactone (Aldactone) 25 mg DAILY@0600 PO Last administered on 03/26/19at 06:37; Admin Dose 25 MG; Start 03/16/19 at 14:00 Eye Lubricant (Artificial Tears Oph) 2 drop Q6H PRN BOTH EYES DRY EYES; Start 03/20/19 at 17:00 Lisinopril (Zestril) 2.5 mg DAILY PO Last administered on 03/25/19at 08:47; Admin Dose 2.5 MG; Start 03/21/19 at 10:30; Status Hold Furosemide (Lasix) 20 mg DAILY PO Last administered on 03/26/19at 08:44; Admin Dose 20 MG; Start 03/26/19 at 09:00 Assessment/Plan Additional Assessment/Plan rehab- Cardiac debility status post ST elevation myocardial infarction, cardiomyopathy. [facility] Anemia. Hypertension. Hyperlipidemia. Hypothyroidism. Scrotal hernia. Venous stasis changes. Severe osteoarthritis affecting bilateral knees. FARHAD SANTANA MD March 26, 2019 10:35
[2019-03-26 14:00] VITALS: BP 95/53; PULSE 85; RESP 18
[2019-03-26 14:15] VITALS: BP 101/53
[2019-03-26 20:00] VITALS: BP 99/56; PULSE 92; RESP 18
[2019-03-26] MEDS: ATORVASTATIN 40 MG TAB PO SCH (20:30)
[2019-03-26] MEDS: SENNA TAB PO SCH (20:30)
[2019-03-27 01:54] VITALS: BP 103/59; PULSE 85; RESP 18
[2019-03-27] MEDS: LEVOTHYROXINE 50 MCG TAB PO SCH (06:22)
[2019-03-27] MEDS: SPIRONOLACTONE 25 MG TAB PO SCH (06:22)
[2019-03-27 07:00] VITALS: BP 109/64; PULSE 82; RESP 18
[2019-03-27] MEDS: ASPIRIN 81 MG TAB PO SCH (08:30)
[2019-03-27] MEDS: DICLOFENAC SODIUM 1% GEL 100 GM TUBE TP SCH ×4 (08:31→21:27)
[2019-03-27] MEDS: DOCUSATE SODIUM 100 MG CAP PO SCH ×2 (08:31→21:00)
[2019-03-27] MEDS: traMADol 50 MG TAB PO SCH ×3 (08:31→21:26)
[2019-03-27] MEDS: CLOPIDOGREL 75 MG TAB PO SCH (08:31)
[2019-03-27] MEDS: POLYETHYLENE GLYCOL 17 GM PACKET PO SCH (08:32)
[2019-03-27] MEDS: FUROSEMIDE 20 MG TAB PO SCH (08:32)
--- NOTE | 2019-03-27 08:47 | PN ---
DATE: 03/27/2019 SUBJECTIVE: The patient is stable, no events overnight. No fevers, chills, nausea or vomiting. OBJECTIVE: VITAL SIGNS: Blood pressure is 103/59, respirations 18, temperature 97.8. HEENT: Head is normocephalic. NECK: Supple. HEART: Regular rate. LUNGS: Show diminished breath sounds at the base. ABDOMEN: Soft, nontender to palpation without rebound or guarding. EXTREMITIES: Negative for clubbing, cyanosis. Trace edema. DERMATOLOGIC: No rashes. MUSCULOSKELETAL: No joint effusion. NEUROLOGIC: No change in exam. MEDICATIONS: Reviewed. LABORATORY DATA: Reviewed. ASSESSMENT AND PLAN: 1. Coronary artery disease, status post percutaneous coronary intervention. Continue current medica l management. 2. Ischemic cardiomyopathy, stable. Continue medical management. 3. Hyperkalemia, mild. We will discontinue potassium chloride and monitor. 4. Hypertension. Continue current blood pressure regimen. Medications were adjusted. 5. Anemia. Monitor hemoglobin and hematocrit levels. 6. Dyslipidemia. Continue statin therapy. 7. Hypothyroidism. Continue Synthroid. 8. Sleep apnea. Continue CPAP. 9. Arrhythmia. The patient has been evaluated for LifeVest. 10. Constipation, improved. 11. Debility. Continue physical therapy. Dictated By: STEPHEN MANRIQUE DO NR/NTS Conf#: [id number] DID#: [id number] CC: STEPHEN MANRIQUE DO; FARHAD SANTANA MD; GM BECERRA MD;*EndCC*
--- NOTE | 2019-03-27 13:49 | PN ---
Date/Time of Note Date/Time of Note DATE: 03/27/19 TIME: 13:49 Subjective Patient nervous regarding upcoming discharge Objective Vital Signs Date Temp Pulse Resp B/P (MAP) Pulse Ox O2 O2 Flow FiO2 Time Delivery Rate 03/27/19 98.6 82 18 109/64 99 Room Air 07:00 (79) Intake and Output 03/26/19 03/26/19 03/27/19 1515:00 23:00 07:00 IntakeIntake Total 90 ml 1100 ml OutputOutput Total 150 ml 880 ml 850 ml BalanceBalance -60 ml 220 ml -850 ml Exam pulm-cta sba transfer Results/Medications Result Diagram: 03/27/19 0633 03/27/19 0633 Results 24 hrs Laboratory Tests Test 03/27/19 06:33 White Blood Count 6.9 Red Blood Count 4.29 L Hemoglobin 11.7 L Hematocrit 36.5 L Mean Corpuscular Volume 85.1 Mean Corpuscular Hemoglobin 27.3 L Mean Corpuscular Hemoglobin Concent 32.1 Red Cell Distribution Width 14.3 Platelet Count 245 Mean Platelet Volume 10.4 Immature Granulocytes % 0.400 Neutrophils % 60.1 Lymphocytes % 24.9 Monocytes % 10.4 Eosinophils % 3.6 Basophils % 0.6 Nucleated Red Blood Cells % 0.0 Immature Granulocytes # 0.030 Neutrophils # 4.1 Lymphocytes # 1.7 Monocytes # 0.7 Eosinophils # 0.3 Basophils # 0.0 Nucleated Red Blood Cells # 0.0 Sodium Level 135 Potassium Level 5.3 H Chloride Level 105 Carbon Dioxide Level 26 Anion Gap 4 L Blood Urea Nitrogen 37 H Creatinine 0.97 Est Glomerular Filtrat Rate mL/min Glucose Level 88 Calcium Level 9.5 Phosphorus Level 3.7 Magnesium Level 2.2 Medications Current Medications Aspirin (Aspirin) 81 mg DAILY PO Last administered on 03/27/19at 08:30; Admin Dose 81 MG; Start 03/12/19 at 09:00 Atorvastatin Calcium (Lipitor) 40 mg HS PO Last administered on 03/26/19at 20:30; Admin Dose 40 MG; Start 03/11/19 at 22:00 Carvedilol (Coreg) 3.125 mg BID PO Last administered on 03/27/19at 08:32; Admin Dose 3.125 MG; Start 03/11/19 at 22:00 Clopidogrel Bisulfate (plaVIX) 75 mg DAILY PO Last administered on 03/27/19 08:31; Admin Dose 75 MG; Start 03/12/19 at 09:00 Lactulose (Enulose) 10 gm Q6 PRN PO CONSTIPATION; Start 03/11/19 at 22:00 Levothyroxine Sodium (Synthroid) 50 mcg BEFORE BREAKFAST PO Last administered on 03/27/19 06:22; Admin Dose 50 MCG; Start 03/12/19 at 07:00 Tramadol HCl (Ultram) 50 mg TID PO Last administered on 03/27/19 13:18; Admin Dose 50 MG; Start 03/11/19 at 22:00 Docusate Sodium (Colace) 100 mg BID PO Last administered on 03/27/19 08:31; Admin Dose 100 MG; Start 03/12/19 at 09:00 Senna (Senokot) 1 tab QHS PO Last administered on 03/26/19 20:30; Admin Dose 1 TAB; Start 03/12/19 at 21:00 Acetaminophen (Tylenol Tab) 650 mg Q4H PRN PO MILD PAIN(1-3)OR ELEVATED TEMP; Start 03/11/19 at 22:30 Bisacodyl (Dulcolax Supp) 10 mg DAILY PRN [place] CONSTIPATION; Start 03/11/19 at 22:30 Magnesium Hydroxide (Milk Of Mag) 30 ml BID PRN PO CONSTIPATION; Start 03/11/19 at 22:30 Diclofenac Sodium (Voltaren 1% Gel) 4 gm QID TP Last administered on 03/27/19 13:18; Admin Dose 4 GM; Start 03/13/19 at 13:00 Polyethylene Glycol (Miralax) 17 gm DAILY PO Last administered on 03/27/19 08:32; Admin Dose 17 GM; Start 03/15/19 at 09:00 Sodium Biphosphate/ Sodium Phosphate (Fleet Enema) 133 ml DAILY PRN [place] CONSTIPATION; Start 03/16/19 at 08:30 Spironolactone (Aldactone) 25 mg DAILY@0600 PO Last administered on 03/27/19 06:22; Admin Dose 25 MG; Start 03/16/19 at 14:00 Eye Lubricant (Artificial Tears Oph) 2 drop Q6H PRN BOTH EYES DRY EYES; Start 03/20/19 at 17:00 Lisinopril (Zestril) 2.5 mg DAILY PO Last administered on 03/25/19at 08:47; Admin Dose 2.5 MG; Start 03/21/19 at 10:30; Status Hold Furosemide (Lasix) 20 mg DAILY PO Last administered on 03/27/19at 08:32; Admin Dose 20 MG; Start 03/26/19 at 09:00 Assessment/Plan Additional Assessment/Plan Rehab- Cardiac Debility Overall he has made significant progress. His knee DJD has been a barrier. JERRY working on dispo options FARHAD SANTANA MD March 27, 2019 13:49
[2019-03-27 14:00] VITALS: BP 96/53; PULSE 88; RESP 18
[2019-03-27 20:00] VITALS: BP 102/55; PULSE 89; RESP 18
[2019-03-27] MEDS: SENNA TAB PO SCH (21:00)
[2019-03-27] MEDS: ATORVASTATIN 40 MG TAB PO SCH (21:26)
[2019-03-28 02:11] VITALS: BP 108/56; PULSE 87; RESP 18
[2019-03-28] MEDS: SPIRONOLACTONE 25 MG TAB PO SCH (06:39)
[2019-03-28] MEDS: LEVOTHYROXINE 50 MCG TAB PO SCH (06:39)
[2019-03-28 07:00] VITALS: BP 103/62; PULSE 89; RESP 18
[2019-03-28] MEDS: ASPIRIN 81 MG TAB PO SCH (08:35)
[2019-03-28] MEDS: FUROSEMIDE 20 MG TAB PO SCH (08:35)
[2019-03-28] MEDS: CLOPIDOGREL 75 MG TAB PO SCH (08:38)
[2019-03-28] MEDS: DOCUSATE SODIUM 100 MG CAP PO SCH (08:38)
[2019-03-28] MEDS: traMADol 50 MG TAB PO SCH ×2 (08:38→16:12)
[2019-03-28] MEDS: DICLOFENAC SODIUM 1% GEL 100 GM TUBE TP SCH ×2 (08:39→15:32)
[2019-03-28] MEDS: POLYETHYLENE GLYCOL 17 GM PACKET PO SCH (08:40)
--- NOTE | 2019-03-28 09:22 | PN ---
DATE: 03/28/2019 SUBJECTIVE: The patient is stable, no events overnight. I spoke with the patient this morning about long term placement. The patient would [facility] to go to [facility] to his ho use. The patient agreed to go to [place]. No other events noted. OBJECTIVE: VITAL SIGNS: Blood pressure is 108/56, respirations 18, pulse 87, temperature 98.0. HEENT: Head is normocephalic. NECK: Supple. HEART: Regular rate. LUNGS: Show diminished breath sounds at the base. ABDOMEN: Soft, nontender to palpation without rebound or guarding. EXTREMITIES: Negative for clubbing, cyanosis, no edema. DERMATOLOGIC: No rashes. MUSCULOSKELETAL: No joint effusion. NEUROLOGIC: No change in exam. MEDICATIONS: Reviewed. LABORATORY DATA: Reviewed. ASSESSMENT AND PLAN: 1. Coronary artery disease, status post percutaneous coronary intervention. Continue current medica l management. 2. Ischemic cardiomyopathy, stable. Continue current treatment plan. 3. Hypokalemia, resolved. 4. Hypertension. Continue current blood pressure regimen. 5. Anemia. Monitor hemoglobin and hematocrit levels. 6. Dyslipidemia. Continue statin therapy. 7. Hypothyroidism. Continue Synthroid. 8. Sleep apnea. Continue nightly CPAP. 9. Arrhythmia. The patient has been evaluated for possible LifeVest. 10. Constipation, improved. 11. Debility. Continue physical therapy. Dictated By: STEPHEN MANRIQUE DO NR/NTS Conf#: [id number] DID#: [id number] CC: GM BECERRA MD; FARHAD SANTANA MD; STEPHEN MANRIQUE DO;*EndCC*
[2019-03-28 14:00] VITALS: BP 103/54; PULSE 94; RESP 18
--- NOTE | 2019-03-28 17:35 | DS ---
Date/Time of Note Date/Time of Note DATE: 03/28/19 TIME: 17:32 Discharge Summary Admission/Discharge Info Admit Date/Time March 11, 2019 at 19:40 Discharge Date/Time March 28, 2019 at 16:55 Discharge Diagnosis 1.Cardiac debility status post ST elevation myocardial infarction, cardiomyopathy. 2. Hypertension. 3. Hyperlipidemia. 4. Hypothyroidism. 5. Scrotal hernia. 6. Venous stasis changes. 7. Severe osteoarthritis affecting bilateral knees, s/p injection 8. Improvements in self care and mobility at the wheelchair level Patient Condition: Good Hospital Course The patient was admitted for comprehensive interdisciplinary rehabilitation and made steady gradual functional gains from a Max/Dep level to a cga/sba level for self care tasks and mobility at the wheelchair level. He had notable knee pain during activities, and improved after bilateral knee injections by Dr. Crystal. Despite steady gains, patient still required assistance, and is being discharged to a lower level of care. The DC meds are per the medication reconciliation sheet. The patient will follow up with PMD upon DC. Home Meds Reported Medications Diclofenac Sodium* (Voltaren* Gel) 1% -100 Gm Gel, 2 GM TOP NEEDED, #1 TUB 03/02/19 Furosemide* (Furosemide*) 40 Mg Tablet, 40 MG PO DAILY, TAB 03/02/19 Levothyroxine Sodium* (Levothyroxine Sodium*) 50 Mcg Tablet, 50 MCG PO BEFORE BREAKFAST, #30 TAB 03/02/19 Tramadol Hcl* (Ultram*) 50 Mg Tablet, 50 MG PO DAILY PRN for NEEDED, TAB 03/02/19 Primary Care Provider Not On Staff Doctor Pending Labs Laboratory Tests Test 03/28/19 06:08 Sodium Level 136 mmol/L (135-144) Potassium Level 4.7 mmol/L (3.5-5.1) Chloride Level 103 mmol/L (97-110) Carbon Dioxide Level 27 mmol/L (21-31) Anion Gap 6 (5-13) Blood Urea Nitrogen 32 mg/dl (7-20) Creatinine 0.97 mg/dl (0.61-1.24) Est Glomerular Filtrat Rate mL/min mL/min (>60) Glucose Level 93 mg/dl (70-220) Calcium Level 9.6 mg/dl (8.4-10.2) Phosphorus Level 3.8 mg/dl (2.5-4.9) Magnesium Level 2.2 mg/dl (1.7-2.5) FARHAD SANTANA MD March 28, 2019 17:35
--- NOTE | 2019-03-28 18:11 | PN ---
DATE: 03/28/2019 PSYCHOLOGY - INDIVIDUAL SESSION - [id number] This is a followup on a patient that was seen last week. The patient was seen in bed. The patient i s in process of being discharged today. The patient is very frustrated and anxious about what is goi ng to happen with him. The patient has lived alone and knows that he cannot go back and live by hims elf at the present time. He is probably going to be transferred to a prison and is not clear a s to which one he is going to go to at the present time. The patient himself said that he is an 83-y ear-old and he does not have any motivation to live. The patient is not actively suicidal, but is de pressed about what is going on with him medically and his ability to care for himself. I worked with the patient to try to continue to support his overall mood in a way to help him understand that he h as made progress that his mind is clear and that he can recover at level that would be positive for h im. The patient was receptive to this but still was very negative about what was going to happen to him. Dictated By: JANET ALLEN PHD RK/WALTER Conf#: [id number] DID#: [id number] CC: FARHAD SANTANA MD; GM BECERRA MD; STEPHEN MANRIQUE DO;*EndCC*
== END 2019-03-28 16:55 | DRG 281 ==
LOC: VRC 03-11 19:40
PROVIDERS: ADMIT Physical Medicine & Rehabilitation; ATTEND Internal Medicine
PROC: F07Z5ZZ Bed Mobility Treatment (ICD-10-PCS; principal; 2019-03-11)
PROC: F08Z2ZZ Grooming/Personal Hygiene Treatment (ICD-10-PCS; 2019-03-11)
DX: I21.09 ST elevation (STEMI) myocardial infarction involving other coronary artery of anterior wall (principal); I50.22 Chronic systolic (congestive) heart failure; R53.81 Other malaise; I25.10 Atherosclerotic heart disease of native coronary artery without angina pectoris; Z95.5 Presence of coronary angioplasty implant and graft; I25.5 Ischemic cardiomyopathy; D64.9 Anemia, unspecified; E03.9 Hypothyroidism, unspecified; E78.5 Hyperlipidemia, unspecified; G47.30 Sleep apnea, unspecified; I49.9 Cardiac arrhythmia, unspecified; I11.0 Hypertensive heart disease with heart failure; K40.90 Unilateral inguinal hernia, without obstruction or gangrene, not specified as recurrent; Z79.82 Long term (current) use of aspirin; K59.00 Constipation, unspecified; E87.6 Hypokalemia; B35.1 Tinea unguium; M79.672 Pain in left foot; M79.671 Pain in right foot
CPT/HCPCS: 73562; 80048; 80053; 81001; 83735; 84100; 85025; 87081; 87086; 94660; 97110; 97112; 97116; 97150; 97163; 97166; 97530; 97535; 97542; J0702; L1820